=== PATIENT | female | born 1970 ===

== ENCOUNTER 2020-07-22 09:53 | Outpatient (REF) | payer OTHER, SELFPAY ==
[2020-07-22 10:23] LABS: COVID-19 Test Negative (Negative)
== END 2020-07-22 09:54 | disposition home or self-care (01) ==
LOC: HO.LAB 09:53
PROVIDERS: Visit Provider Internal Medicine
DX: Z20.828 Contact with and (suspected) exposure to other viral communicable diseases (principal)
CPT/HCPCS: 87635

== ENCOUNTER 2020-07-26 16:04 | Outpatient (REF) | payer OTHER, SELFPAY ==
--- NOTE | 2020-07-26 16:13 | XR_ITS ---
EXAMINATION: XR HIP, RIGHT CLINICAL INFORMATION: Right hip pain COMPARISON: CT abdomen pelvis 08/23/2011 TECHNIQUE: Two views of the right hip. FINDINGS: Bones and soft tissues are normal. No fracture. Alignment is anatomic. Hip joint space is maintained. XR/XR hip RT min 2V IMPRESSION: Normal right hip.
== END 2020-07-26 16:05 | disposition home or self-care (01) ==
LOC: HO.XRAY 16:04
PROVIDERS: PCP Internal Medicine; Visit Provider Internal Medicine
DX: M25.551 Pain in right hip (principal)
CPT/HCPCS: 73502

== ENCOUNTER 2020-08-15 11:21 | Outpatient (REF) | payer OTHER, SELFPAY ==
[2020-08-15 13:16] LABS: COVID-19 Test Negative (Negative)
== END 2020-08-15 11:22 | disposition home or self-care (01) ==
LOC: HO.EMPCOV 11:21
PROVIDERS: PCP Internal Medicine; Visit Provider Internal Medicine
DX: Z20.828 Contact with and (suspected) exposure to other viral communicable diseases (principal)
CPT/HCPCS: 87635; C9803

== ENCOUNTER 2020-08-17 16:00 | Outpatient (RCR) | payer OTHER, SELFPAY ==
--- NOTE | 2020-08-12 09:07 | MHC.PT.EP ---
[facility] [place] Office [place] Office [place] Office [address] Cheryl Freeman [address] [phone] F: [phone] F: [phone] F: [phone] F: [phone] Physical Therapy Plan of Care Date of Evaluation: 08/12/20 Date of Surgery: N/A Diagnosis: low back pain Assessment: pt presents to physical therapy with pain, decreased range of motion, decreased strength, impaired functional mobility, impaired postural awareness, and gait deviations. pt is a good candidate for skilled PT due to age, potential remediation of impairments, typical disease/condition progression and prognosis, comorbidities, and motivation. pt would benefit from tailored strengthening and stretching exercise program, functional training, gait training, postural re-training, neuromuscular re-education, modalities as needed for pain, equipment safety demonstration. Frequency and Duration: The patient will be seen 2x/wk for 4 wks Short Term Goals: pt will be I w/ HEP to promote self-management of condition. pt will demo symmetrical SI joint alignment to facilitate neutral lumbopelvic posture. Behavioral Therapist Goals: pt will report statistically significant improvement in self-reported outcome measure, Autumn, to facilitate return to PLOF. pt will report <2/10 anterior hip pain w/ lower body dressing to facilitate return to PLOF. Treatment Plan: Modalities to reduce pain, spasms and effusion. Manual therapy to restore motion and function. Therapeutic exercise to improve strength and flexibility. Neuromuscular re-education for posture and balance. Therapeutic activities to return to functional activities of daily living. Please sign and return to therapist. Thank you for your referral.
--- NOTE | 2020-09-19 10:09 | MHC.PT.DC ---
[facility] [place] Office [place] Office [place] Office [address] Cheryl Freeman 140 [facility] [phone] F: [phone] F: [phone] F: [phone] F: [phone] Physical Therapy Discharge Report Diagnosis: low back pain Date of Surgery: N/A Date of Evaluation: 08/12/20 Date of Discharge: 09/19/20 Treatments to Date: 2 Cancellations to Date: 6 No Shows to Date: 1 Discharge Status: Patient Elected to Stop Recommend MD Follow-up Discharge Summary: The patient called our office to inform us she had tested positive for COVID-19. She had cancelled all of her remaining appointments with a note that she would schedule a follow-up appointment when she was cleared and felt well enough to do so. It has been over a month since we have heard from her and at this point she would need a new script for a new evaluation to assess her current pain and impairments. She is discharged from this physical therapy plan of care. Electronically signed by: Kaleigh Marcus PT, DPT Please sign and return to therapist. Thank you for your referral.
== END 2020-09-19 10:09 | disposition other institution (70) ==
LOC: HO.PT 16:00
PROVIDERS: PCP Internal Medicine; Visit Provider Internal Medicine
DX: M54.5 Low back pain (principal)
CPT/HCPCS: 97110; 97140; 97161

== ENCOUNTER 2020-08-29 11:00 | Outpatient (REF) | payer OTHER, SELFPAY ==
[2020-08-30 07:08] LABS: COVID-19 Test Positive (Negative); IDNOW Serial# 55D5AD1C
== END 2020-08-29 11:01 | disposition home or self-care (01) ==
LOC: HO.EMPCOV 11:00
PROVIDERS: Visit Provider Internal Medicine
DX: Z20.828 Contact with and (suspected) exposure to other viral communicable diseases (principal)
CPT/HCPCS: 87635; C9803

== ENCOUNTER 2020-09-02 09:45 | Emergency (ER) | payer OTHER, SELFPAY ==
--- NOTE | 2020-09-02 09:50 | ED.SOB ---
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 she is Covid positive, her PMD started her on prednisone, zpack and albuterol but patient is still coughing. MD elicited complaint: shortness of breath, cough and anxiety Onset (ago): day(s) Context: recent illness Timing: constant Severity: mild Related Data Allergies Allergy/AdvReac Type Severity Reaction Status Date / Time orange Allergy Unknown RASH Unverified 06/16/20 15:55 oranges Allergy Unknown rash Uncoded 05/22/17 00:00 penicillin Allergy Unknown rash Uncoded 05/22/17 00:00 Review of Systems Constitutional: Constitutional: Reports no additional constitutional complaints Eyes: Eyes: Reports no additional eye complaints ENT: Denies dizziness Cardiovascular: Cardiovascular: Reports no additional cardiovascular complaints Respiratory: Respiratory: Reports as per HPI Gastrointestinal: Gastrointestinal: Reports no additional gastrointestinal complaints Genitourinary: Genitourinary: Reports no additional female genitourinary complaints Musculoskeletal: Musculoskeletal: Reports no additional musculoskeletal complaints Integumentary/Breasts: Skin/Breast: Denies rash Neurologic: Reports system reviewed and no additional complaints, except as documented, Denies dizziness and Denies Sensory deficit (Neuro) Psychiatric: Psychiatric: Denies anxiety [facility] Past Medical History Surgical History (Updated 09/02/20 @ 10:05 by Jorge Mas) H/O: hysterectomy Social History Social History Advance Directives: No Advance Directives Information Provided: No Physical Exam Vital Signs: Vital Signs: Last Vital Signs Temp 100.1 F 09/02/20 10:01 Pulse 116 H 09/02/20 10:01 Resp 18 09/02/20 10:01 BP 131/93 H 09/02/20 10:01 Pulse Ox 98 09/02/20 10:01 Body Mass Index 27.1 Const: Other: continual coughing General: healthy appearing Nutritional Appearance: average body habitus Orientation/consciousness: oriented to person and patient oriented x3 Limitations: no limitations HENMT: Head: Yes normal to inspection Ears: external ears normal General nose exam: Normal external nose present Mouth: Normal oral and palatal mucosa present and oropharynx normal Throat: Yes posterior oropharynx normal Eyes: General: appearance normal, both eyes and all related structures Neck: Other: supple Neck: Yes normal visual inspection Chest: Chest palpation & inspection: normal inspection of the chest Resp: Auscultation: clear to auscultation bilaterally Cardio: Jugular venous distension: no JVD Rate: regular rate Rhythm: regular rhythm Heart sounds: S1 normal heart sound present and S2 normal heart sound present GI: Inspection: Yes normal to inspection Palpation (GI): Soft to palpation, nontender and No hepatosplenomegaly present Auscultation: normal bowel sounds : General: Yes no CVA tenderness Back/Spine/Pelvis: Back: no CVA tenderness Skin: General skin exam: no rashes or lesions noted Neuro: General: oriented to person and patient oriented x3 Cranial nerves: Yes CN's II-XII intact bilaterally Motor exam (neuro): 5/5 motor strength present throughout Sensory Exam: No Sensory deficit (Neuro) Extrem: General: Yes normal to inspection Psych: Appearance: grossly normal Course Course Course Narrative: pulse ox is normal, will obtain a CXR Reevaluation(s) Reevaluation #1: normal CXR MDM - SOB/Dyspnea MDM Narrative Medical decision making narrative: no hypoxia, normal xray will dc home Discharge Plan Discharge Clinical Impression: COVID-19 Patient Disposition: Home, Self-Care Instructions: COVID-19 (Coronavirus Disease 2019) (ED) Referrals: Physician,Unknown [Primary Care Provider] - 2 days
[2020-09-02 10:01] VITALS: BP 131/93; PULSE 116; RESP 18; TEMP 37.8; O2SAT 98; BMI 27.1
--- NOTE | 2020-09-02 10:06 | XR_ITS ---
EXAMINATION: XR CHEST CLINICAL INFORMATION: COVID+; continued coughing COMPARISON: Chest radiographs 07/31/2018, 01/24/2016 TECHNIQUE: Portable upright AP view of the chest was obtained. FINDINGS: The lungs are clear. There is no airspace consolidation or groundglass opacity. The costophrenic sulci are well-defined. The heart is normal in size. The hilar and mediastinal contours and bony structures are unremarkable. XR/XR chest 1V IMPRESSION: Unremarkable examination.
[2020-09-02 11:20] VITALS: BP 147/78; PULSE 88; RESP 20; TEMP 38.2
== END 2020-09-02 14:13 | disposition home or self-care (01) ==
PROVIDERS: Emergency Provider Emergency Medicine
DX: U07.1 COVID-19 (principal); R05 Cough
CPT/HCPCS: 71045; 99283

== ENCOUNTER → 2020-10-04 10:51 | Outpatient (BNVA) | payer OTHER, SELFPAY | PROVIDERS: Visit Provider Internal Medicine | DX: Z13.89 Encounter for screening for other disorder (principal) | CPT/HCPCS: 90715; 99203 ==

== ENCOUNTER 2020-10-13 10:00 | Outpatient (REF) | payer OTHER, SELFPAY ==
[2020-10-13 10:33] LABS: COVID-19 Test Negative (Negative)
== END 2020-10-13 10:01 | disposition home or self-care (01) ==
LOC: HO.EMPCOV 10:00
PROVIDERS: PCP Internal Medicine; Visit Provider Internal Medicine
DX: Z20.822 Contact with and (suspected) exposure to COVID-19 (principal)
CPT/HCPCS: 36415; 87635; C9803

== ENCOUNTER 2020-10-18 07:02 | Outpatient (REF) | payer OTHER, SELFPAY ==
[2020-10-18 07:49] LABS: MANUAL DIFF FLAG NO
[2020-10-18 08:01] LABS: Basophils Percent Auto 0.9 % (0-2); Eosinophils Absolute Auto 0.2 X10*3/uL (0.0-0.4); Eosinophils Percent Auto 5.2 % (0-4); Hematocrit 36.4 % (37-47); Hemoglobin 11.5 g/dl (12.0-16.0); Imm Gran Abs Auto 0.01 X10*3/uL (0.00-0.03); Imm Gran Pct Auto 0.2 % (0.0-0.4); Lymphocytes Absolute Auto 1.8 X10*3/uL (1.2-4.9); Lymphocytes Percent Auto 38.9 % (20-40); Mean Corpuscular HGB Conc 31.6 g/dl (31.0-35.0); Mean Corpuscular Hemoglobin 28.8 pg (27.0-33.0); Mean Platelet Volume 10.9 fL (9.4-12.3); Monocytes Absolute Auto 0.4 X10*3/uL (0.1-1.2); Monocytes Percent Auto 9.2 % (2-11); Neutrophils Absolute Auto 2.1 X10*3/uL (2.0-8.3); Neutrophils Percent Auto 45.6 % (45-73); Platelet Count 358 X10*3/uL (160-400); White Blood Count 4.7 X10*3/uL (4.8-10.8)
[2020-10-18 08:34] LABS: Alanine Aminotransferase 9 U/L (0-31); Albumin Level 4.3 g/dL (3.5-5.0); Alkaline Phosphatase 67 U/L (39-117); Anion Gap 11 (12-20); Aspartate Amino Transferase 14 U/L (5-31); Bilirubin Total 0.4 mg/dL (0.0-1.0); Blood Urea Nitrogen 10 mg/dL (9-16); Calcium 8.8 mg/dL (8.4-10.2); Carbon Dioxide 26 mmol/L (22-29); Chloride 105 mmol/L (96-108); Cholesterol 175 mg/dL; Estimated Glomerular Filt Rate > 60; Glucose Random 83 mg/dL (60-115); HDL Cholesterol 62 mg/dL; LDL Cholesterol Calculated 92 mg/dl; Potassium 4.3 mmol/l (3.3-5.1); Rheumatoid Factor < 15.0 IU/mL (<15.0); Sodium 138 mmol/L (135-145); Triglycerides 105 mg/dL
[2020-10-18 08:56] LABS: Thyroid Stimulating Hormone 2.35 uIU/mL (0.32-4.0)
[2020-10-20 11:53] LABS: Anti Nuclear Antibody Screen NEGATIVE (NEGATIVE)
== END 2020-10-18 07:03 | disposition home or self-care (01) ==
LOC: HO.LAB 07:02
PROVIDERS: Visit Provider Internal Medicine
DX: U07.1 COVID-19 (principal)
CPT/HCPCS: 36415; 80053; 80061; 84443; 85025; 86038; 86039; 86431

== ENCOUNTER 2020-11-09 15:19 | Outpatient (REF) | payer OTHER, SELFPAY ==
--- NOTE | ~2020-11-09 | MM_ITS ---
EXAMINATION: MM SCREENING DIGITAL BREAST TOMOSYNTHESIS, BILATERAL CLINICAL INFORMATION: Screening. Asymptomatic. The lifetime risk of breast cancer based on the Tyrer-Cuzick Model is 21.5%. Additional annual screening with breast MRI may be of benefit in women with a Score of 20% or greater. COMPARISON: Mammography: November 04, 2019 and studies dating back to July 02, 2013 TECHNIQUE: Digital breast tomosynthesis is performed in both the craniocaudal and mediolateral oblique views along with computer-aided detection (CAD). Synthesized 2D images are generated from the tomosynthesis. FINDINGS: The breasts are heterogeneously dense, which may obscure small masses (ACR BI-RADS breast composition Category c). There are no significant masses, abnormal calcifications, or other abnormalities. MM/MM tomosynthesis screening BI IMPRESSION: There are no significant changes from prior study. ASSESSMENT: BI-RADS 1: Negative RECOMMENDATION: Routine annual mammography screening. This patient's information was entered into a reminder system with a target due date for their next mammogram.
== END 2020-11-09 15:20 | disposition home or self-care (01) ==
LOC: HO.MAMMO 15:19
PROVIDERS: Visit Provider Internal Medicine
DX: Z12.31 Encounter for screening mammogram for malignant neoplasm of breast (principal)
CPT/HCPCS: 77063; 77067

== ENCOUNTER 2020-12-08 13:27 | Outpatient (REF) | payer OTHER, SELFPAY ==
--- NOTE | ~2020-12-08 | MR_ITS ---
EXAMINATION: MR BRAIN WITHOUT AND WITH CONTRAST CLINICAL INFORMATION: Headaches and dizziness. Family history of malignant neoplasm. COMPARISON: CT scan of the head 01/05/2014. TECHNIQUE: Multiplanar, multisequence MRI of the brain was obtained before and after the intravenous administration of 7 mL Gadavist. FINDINGS: No diffusion abnormalities are identified to suggest an acute or subacute infarct. No mass effect or midline shift is seen. The ventricles are normal in size. There are multiple foci of increased T2 and FLAIR signal in the supratentorial white matter. These are in a nonspecific distribution, and may be consistent with sequelae of vasculitis, migraine or mild/early microvascular ischemic disease. They may be consistent with demyelination in the correct clinical setting. No extra-axial fluid collections are seen. The brainstem and cerebellum are normal. On postcontrast imaging, there is no abnormal parenchymal or leptomeningeal enhancement. There is no evidence of acute hemorrhage. There is a small focus of low gradient signal adjacent to the calvarium in the right frontal region, which may be consistent with a small exostosis. The craniovertebral junction, marrow signal, and midline structures are normal. The major intracranial flow-voids at the level of the [place] of [place] are preserved. The dural venous sinus flow-voids are maintained. There is mild fluid signal in the right greater than left mastoid air cells. The paranasal sinuses are well-aerated. MR/MR head/brain wo/w con IMPRESSION: 1. There are no acute bleeds or infarcts. There are no masses or areas of abnormal enhancement. 2. There are scattered areas of increased T2 and FLAIR signal in the deep white matter as described above.
== END 2020-12-08 13:28 | disposition home or self-care (01) ==
LOC: HO.MRI 13:27
PROVIDERS: Visit Provider Internal Medicine
DX: G44.209 Tension-type headache, unspecified, not intractable (principal); Z80.9 Family history of malignant neoplasm, unspecified
CPT/HCPCS: 70553; A9585

== ENCOUNTER 2020-12-14 09:41 | Outpatient (REF) | payer OTHER, SELFPAY | END 2020-12-14 09:42 | disposition home or self-care (01) | LOC: HO.LAB 09:41 | PROVIDERS: Visit Provider Internal Medicine | DX: Z20.822 Contact with and (suspected) exposure to COVID-19 (principal) | CPT/HCPCS: 36415; C9803; U0003; U0005 ==

== ENCOUNTER 2021-01-31 08:57 | Outpatient (REF) | payer OTHER, SELFPAY | END 2021-01-31 08:58 | disposition home or self-care (01) | LOC: HO.EMPCOV 08:57 | PROVIDERS: Visit Provider Internal Medicine | DX: Z20.822 Contact with and (suspected) exposure to COVID-19 (principal) | CPT/HCPCS: C9803; U0003; U0005 ==

== ENCOUNTER 2021-03-13 15:42 | Outpatient (REF) | payer OTHER, SELFPAY | END 2021-03-13 15:43 | disposition home or self-care (01) | LOC: HO.LAB 15:42 | PROVIDERS: PCP Internal Medicine; Visit Provider Otolaryngology | DX: J30.89 Other allergic rhinitis (principal) | CPT/HCPCS: 36415; 82785; 86003 ==

== ENCOUNTER 2021-07-31 10:28 | Outpatient (REF) | payer OTHER, SELFPAY | END 2021-07-31 10:29 | disposition home or self-care (01) | LOC: HO.LAB 10:28 | PROVIDERS: Visit Provider Internal Medicine | DX: Z20.822 Contact with and (suspected) exposure to COVID-19 (principal) | CPT/HCPCS: C9803; U0003; U0005 ==

== ENCOUNTER 2021-09-26 10:52 | Emergency (ER) | payer OTHER, SELFPAY ==
--- NOTE | ~2021-09-26 | XR_ITS ---
EXAMINATION: XR CHEST CLINICAL INFORMATION: Covid plus cough. COMPARISON: Chest 09/02/2020. TECHNIQUE: PA and lateral views of the chest are obtained. FINDINGS: No significant abnormality is noted involving the heart, lungs, mediastinum, bony thorax or soft tissues. XR/XR chest 2V IMPRESSION: Unremarkable examination.
[2021-09-26 11:34] VITALS: BP 138/79; PULSE 120; RESP 18; TEMP 38.2; O2SAT 99; BMI 25.2
--- NOTE | 2021-09-26 15:38 | ED_ITS ---
HPI - URI/Sore Throat General Chief Complaint: Upper Respiratory Symptoms Stated Complaint: Diff Breathing COVID + Time Seen by Provider: 09/26/21 14:28 Source: patient Mode of arrival: ambulatory Limitations: no limitations History of Present Illness HPI Narrative: 51-year-old female presents with 3 days of cough, chills, fever, sore throat. Patient feels short of breath only with the cough. She has a remote history of asthma. No chest pain. Patient is able to eat and drink, no nausea or vomiting. Related Data Previous Rx's Medication Instructions Recorded dextromethorphan 5 mg-guaifenesin 20 ml PO Q4-6H PRN #237 ml 09/02/20 50 mg/5 mL oral liquid (Robitussin Cough-Chest Congestion DM) albuterol sulfate 90 mcg/actuation 2 puff INHALATION Q4-6H PRN #8.5 g 09/26/21 aerosol inhaler dexamethasone 6 mg tablet 6 mg PO DAILY 3 Days #3 tab 09/26/21 Allergies Allergy/AdvReac Type Severity Reaction Status Date / Time orange Allergy Unknown RASH Unverified 06/16/20 15:55 oranges Allergy Unknown rash Uncoded 05/22/17 00:00 penicillin Allergy Unknown rash Uncoded 05/22/17 00:00 Review of Systems Constitutional: Constitutional: Reports body ache(s), Reports chills, Reports fatigue, Reports fever(s), Reports headache(s), Reports malaise and Reports weakness Eyes: Eyes: Denies diplopia ENT: Denies vertigo, Denies dizziness, Denies otalgia, Reports headache(s), Denies mouth pain, Denies post nasal drip, Denies sinus pain, Denies sinus pressure, Reports sore throat and Denies throat swelling Cardiovascular: Cardiovascular: Denies chest pain, Denies syncope, Denies leg edema, Denies lightheadedness, Denies Loss of Consciousness, Denies palpitations and Denies dyspnea Respiratory: Respiratory: Reports chest congestion, Reports cough and Denies dyspnea Comments: Shortness of breath when coughing Gastrointestinal: Gastrointestinal: Denies abdominal pain, Denies hematochezia, Denies constipation, Denies diarrhea and Denies vomiting Musculoskeletal: Musculoskeletal: Reports no additional musculoskeletal complaints Neurologic: Denies confusion, Denies vertigo, Denies dizziness, Denies syncope, Reports headache(s) and Reports weakness Psychiatric: Psychiatric: Denies anxiety, Denies confusion and Denies depression Endocrine: Endocrine: Reports fatigue and Denies palpitations Allergic/Immunologic: Allergic/Immunologic: Denies throat swelling PMFSH Past Medical History Surgical History (Updated 09/02/20 @ 10:05 by Jorge Mas) H/O: hysterectomy Social History Social History Advance Directives: No Advance Directives Information Provided: No Patient : No Physical Exam Vital Signs: Vital Signs: Last Vital Signs Temp 100.8 F H 09/26/21 11:34 Pulse 120 H 09/26/21 11:34 Resp 18 09/26/21 11:34 BP 138/79 09/26/21 11:34 Pulse Ox 99 09/26/21 11:34 BMI result Body Mass Index 25.2 Const: General: alert, awake and ill appearing acutely; No confusion Nutritional Appearance: well nourished Orientation/consciousness: patient oriented x3 and No confusion Limitations: no limitations HENMT: Head: Yes normal to inspection, Yes normocephalic and Yes atraumatic Ears: hearing grossly normal bilaterally, external ears normal, TM's normal bilaterally and EAC's normal General nose exam: Normal external nose present Face and sinus: Yes normal facial exam and Yes sinuses nontender Mouth: Normal oral and palatal mucosa present Throat: Yes tonsils normal, Yes uvula midline and Yes posterior oropharynx abnormal (Erythematous, no exudate) Eyes: Conjunctivae: conjunctivae normal Pupils: Equal, round and reactive pupils present EOM: EOMs intact bilaterally Neck: Neck: Yes full ROM, Yes no lymphadenopathy and Yes supple Resp: Effort & Inspection: normal respiratory effort and able to speak in complete sentences Auscultation: clear to auscultation bilaterally, no crackl es, no rales, no rhonchi, no wheezes and diminished lung sounds (mildly) Cardio: Rate: regular rate Rhythm: regular rhythm Heart sounds: S1 normal heart sound present and S2 normal heart sound present GI: Inspection: Yes normal to inspection Palpation (GI): Soft to palpation, nontender, no guarding and not rigid Percussion: Yes normal to percussion Auscultation: normal bowel sounds Skin: General skin exam: no rashes or lesions noted Neuro: General: patient oriented x3 and No confusion Cranial nerves: Yes Equal, round and reactive pupils present Extrem: General: Yes normal to inspection and Yes full ROM Psych: Appearance: grossly normal Affect: normal affect Attitude: cooperative Thought process: Normal thought process present Course Course Course Narrative: 51-year-old female is COVID positive presents for shortness of breath with cough, remote history of asthma. Chest x-ray is negative. Patient denies shortness of breath wall sitting, denies chest pain. Chest x-ray is negative. Lungs or Mildly diminished. Provided albuterol inhaler, gave short course of dexamethasone, saltwater gargles, counseled patient to get a pulse oximeter and follow her oxygen saturation and if it drops below 89%, to return to be seen. Tylenol, push fluids, rest. Out of work for 10 days. All patient's questions were answered Discharge Plan Discharge Clinical Impression: COVID-19 Patient Disposition: Home, Self-Care Instructions: COVID-19 (Coronavirus Disease 2019) (ED) Additional Instructions: Today you tested positive for COVID, your chest x-ray was negative. Please use your pulse oximeter at home and monitor oxygen saturation. If her oxygen saturation goes below 89%, if you feel short of breath, or have chest pain, please return to the emergency room. Please take your albuterol inhaler, 2 puffs every 4-6 hours and take the dexamethasone. Use salt water gargles for your throat, 1 tsp of salt in a couple of warm water, gargle, please use Tylenol and push fluids, please drink 3 L of fluid a day. Please return to emergency room for any new or concerning symptoms Prescriptions: New albuterol sulfate 90 mcg/actuation HFA aerosol inhaler 2 puff inhalation Q4-6H PRN (Reason: shortness of breath or wheezing) Qty: 8.5 RF: 0 dexamethasone 6 mg tablet 6 mg PO DAILY 3 Days Qty: 3 RF: 0 No Action Robitussin Cough-Chest Earl DM 5-50 mg/5 mL liquid 20 ml PO Q4-6H PRN (Reason: cough) Qty: 237 RF: 0 Stand Alone Forms: Work/School Release
[2021-09-26 16:19] VITALS: BP 143/77; PULSE 115; RESP 16; TEMP 36.5; O2SAT 99
--- NOTE | 2021-09-26 17:57 | PC.NURSE ---
pt was not seen by this nurse, pt was discharged by provider
== END 2021-09-26 17:57 | disposition home or self-care (01) ==
PROVIDERS: Emergency Provider Emergency Medicine; PCP Internal Medicine
DX: U07.1 COVID-19 (principal); J45.909 Unspecified asthma, uncomplicated
CPT/HCPCS: 71046; 99283

== ENCOUNTER 2021-11-03 06:57 | Outpatient (REF) | payer OTHER, SELFPAY ==
[2021-11-03 07:14] LABS: MANUAL DIFF FLAG NO
[2021-11-03 07:34] LABS: Basophils Percent Auto 0.7 % (0-2); Eosinophils Absolute Auto 0.2 X10*3/uL (0.0-0.4); Eosinophils Percent Auto 4.1 % (0-4); Hematocrit 37.5 % (37.0-47.0); Imm Gran Abs Auto 0.01 X10*3/uL (0.00-0.03); Imm Gran Pct Auto 0.2 % (0.0-0.4); Lymphocytes Absolute Auto 1.6 X10*3/uL (1.2-4.9); Lymphocytes Percent Auto 38.3 % (20-40); Mean Corpuscular Hemoglobin 28.6 pg (27.0-33.0); Mean Corpuscular Volume 89.3 fL (80.0-98.0); Mean Platelet Volume 10.6 fL (9.4-12.3); Monocytes Absolute Auto 0.5 X10*3/uL (0.1-1.2); Monocytes Percent Auto 11.2 % (2-11); Neutrophils Absolute Auto 1.9 x10*3/uL (2.0-8.3); Neutrophils Percent Auto 45.5 % (45-73); Platelet Count 329 X10*3/uL (160-400); White Blood Count 4.2 X10*3/uL (4.8-10.8)
[2021-11-03 08:03] LABS: Alanine Aminotransferase 11 U/L (0-31); Albumin Level 4.4 g/dL (3.5-5.0); Alkaline Phosphatase 63 U/L (39-117); Anion Gap 10 (12-20); Aspartate Amino Transferase 15 U/L (5-31); Bilirubin Total 0.7 mg/dL (0.0-1.0); Blood Urea Nitrogen 10 mg/dL (9-16); Calcium 9.6 mg/dL (8.4-10.2); Carbon Dioxide 28 mmol/L (22-29); Chloride 108 mmol/L (96-108); Cholesterol 191 mg/dL; Estimated Glomerular Filt Rate > 60; Glucose Random 96 mg/dL (60-115); HDL Cholesterol 64 mg/dL; LDL Cholesterol Calculated 113 mg/dl; Potassium 3.9 mmol/L (3.3-5.1); Sodium 142 mmol/L (135-145); Total Protein 7.4 g/dL (6.5-8.0); Triglycerides 73 mg/dL
[2021-11-03 08:13] LABS: Thyroid Stimulating Hormone 2.01 uIU/mL (0.32-4.0)
[2021-11-03 08:14] LABS: Erythrocyte Sedimentation Rate 7 MM/HR (0-20)
== END 2021-11-03 06:58 | disposition home or self-care (01) ==
LOC: HO.LAB 06:57
PROVIDERS: PCP Internal Medicine; Visit Provider Internal Medicine
DX: Z00.00 Encounter for general adult medical examination without abnormal findings (principal); H81.12 Benign paroxysmal vertigo, left ear; M06.9 Rheumatoid arthritis, unspecified; R21 Rash and other nonspecific skin eruption; R53.83 Other fatigue
CPT/HCPCS: 36415; 80053; 80061; 84443; 85025; 85652

== ENCOUNTER → 2021-11-03 07:57 | Outpatient (BNVA) | payer OTHER, SELFPAY | PROVIDERS: PCP Internal Medicine | DX: Z13.89 Encounter for screening for other disorder (principal) | CPT/HCPCS: 73130; 99203 ==

== ENCOUNTER → 2021-11-09 08:07 | Outpatient (BNVA) | payer OTHER, SELFPAY | PROVIDERS: PCP Internal Medicine; Visit Provider Internal Medicine | DX: Z13.89 Encounter for screening for other disorder (principal) | CPT/HCPCS: 99213 ==

== ENCOUNTER 2021-11-14 12:03 | Outpatient (REF) | payer OTHER, SELFPAY ==
--- NOTE | ~2021-11-14 | XR_ITS ---
EXAMINATION: RIGHT HAND AND RIGHT WRIST. CLINICAL INFORMATION: Pain right wrist. COMPARISON: None TECHNIQUE: 3 views right wrist and 3 views right hand. FINDINGS: Right hand: There is no visible acute fracture, dislocation or subluxation. The PIP, DIP and MCP joint space is maintained normal. The soft tissues are normal. Right wrist: There is no visible acute fracture, dislocation or subluxation seen. The soft tissues are normal. XR/XR hand RT min 3V IMPRESSION: Unremarkable right hand and right wrist exam.
--- NOTE | ~2021-11-14 | XR_ITS ---
EXAMINATION: RIGHT HAND AND RIGHT WRIST. CLINICAL INFORMATION: Pain right wrist. COMPARISON: None TECHNIQUE: 3 views right wrist and 3 views right hand. FINDINGS: Right hand: There is no visible acute fracture, dislocation or subluxation. The PIP, DIP and MCP joint space is maintained normal. The soft tissues are normal. Right wrist: There is no visible acute fracture, dislocation or subluxation seen. The soft tissues are normal. XR/XR wrist RT min 3V IMPRESSION: Unremarkable right hand and right wrist exam.
== END 2021-11-14 12:04 | disposition home or self-care (01) ==
LOC: HO.HOSX 12:03
PROVIDERS: PCP Internal Medicine; Visit Provider Orthopaedic Surgery
DX: S63.641A Sprain of metacarpophalangeal joint of right thumb, initial encounter (principal); M25.531 Pain in right wrist; R20.0 Anesthesia of skin; R20.2 Paresthesia of skin; W01.0XXA Fall on same level from slipping, tripping and stumbling without subsequent striking against object, initial encounter; Y93.9 Activity, unspecified; Y92.9 Unspecified place or not applicable; Y99.9 Unspecified external cause status
CPT/HCPCS: 73110; 73130; 99202

== ENCOUNTER 2021-11-24 08:51 | Outpatient (REF) | payer OTHER, SELFPAY ==
--- NOTE | ~2021-11-24 | MM_ITS ---
EXAMINATION: MM SCREENING DIGITAL BREAST TOMOSYNTHESIS, BILATERAL CLINICAL INFORMATION: Screening. Asymptomatic. The lifetime risk of breast cancer based on the Tyrer-Cuzick Model is 21%. COMPARISON: Mammography: 11/09/2020, 11/04/2019, 10/29/2018, 10/25/2017 TECHNIQUE: Digital breast tomosynthesis is performed in both the craniocaudal and mediolateral oblique views along with computer-aided detection (CAD). Synthesized 2D images are generated from the tomosynthesis. FINDINGS: The breasts are heterogeneously dense, which may obscure small masses (ACR BI-RADS breast composition Category c). Breast tissue composition borders on average fibroglandular. There are no significant masses, abnormal calcifications, or other abnormalities. Parenchymal pattern is similar to prior studies. There is no developing density or architectural abnormality. The axilla and skin contours are unremarkable. No significant changes. MM/MM tomosynthesis screening BI IMPRESSION: No mammographic evidence of malignancy. ASSESSMENT: BI-RADS 1: Negative RECOMMENDATION: 1. Routine annual mammography screening. 2. The lifetime risk of breast cancer based on the Tyrer-Cuzick Model is 21%. Additional annual adjunct screening with breast MRI may be of benefit in women with a risk score of 20% or greater. This patient's information was entered into a reminder system with a target due date for their next mammogram.
== END 2021-11-24 08:52 | disposition home or self-care (01) ==
LOC: HO.MAMMO 08:51
PROVIDERS: PCP Internal Medicine; Visit Provider Internal Medicine
DX: Z12.31 Encounter for screening mammogram for malignant neoplasm of breast (principal)
CPT/HCPCS: 77063; 77067

== ENCOUNTER → 2021-12-19 13:29 | Outpatient (BNVA) | payer OTHER, SELFPAY | PROVIDERS: PCP Internal Medicine; Visit Provider Orthopaedic Surgery | DX: S63.641D Sprain of metacarpophalangeal joint of right thumb, subsequent encounter (principal); R20.0 Anesthesia of skin; R20.2 Paresthesia of skin | CPT/HCPCS: 99212 ==

== ENCOUNTER → 2022-01-04 10:33 | Outpatient (BNVA) | payer OTHER, SELFPAY | PROVIDERS: PCP Internal Medicine; Visit Provider Internal Medicine | DX: Z13.89 Encounter for screening for other disorder (principal) | CPT/HCPCS: 99213 ==

== ENCOUNTER 2022-01-05 10:28 | Outpatient (REF) | payer OTHER, SELFPAY ==
--- NOTE | 2022-01-05 10:34 | EMG_ITS ---
This is a 51-year-old woman with history of right hand numbness. She had a recent fall in which she stretched her tendons in the right hand and was in a cast for about 6 weeks. Neurological examination is normal. IMPRESSION: Nerve conduction EMG study: Normal electrodiagnostic study of the right upper extremity with no evidence of carpal tunnel syndrome or nerve entrapment. Normal EMG of the right C7-T1 innervated muscles. MD DOROTHY Mims/JUAN / [id number]
== END 2022-01-05 10:29 | disposition home or self-care (01) ==
LOC: HO.NEURO 10:28
PROVIDERS: PCP Internal Medicine; Visit Provider Orthopaedic Surgery
DX: R20.0 Anesthesia of skin (principal); R20.2 Paresthesia of skin
CPT/HCPCS: 95885; 95910

== ENCOUNTER 2022-01-15 08:31 | Outpatient (REF) | payer OTHER, SELFPAY ==
--- NOTE | ~2022-01-15 | MR_ITS ---
EXAMINATION: MRI RIGHT HAND WITHOUT CONTRAST CLINICAL INFORMATION: Right thumb MCP joint sprain/pain. COMPARISON: X-ray 11/14/2021 TECHNIQUE: MRI in a high-field magnet without contrast. FINDINGS: First MCP joint: Minimal arthritis, with subtle foci of mild cartilage heterogeneity/irregularity. Faint foci subchondral edema. No fracture. No significant joint effusion. Mild increased signal in the ulna collateral ligament, suggesting sprain injury. Radial collateral ligament is intact. First digit flexor and extensor tendons intact. Additional findings: There are degenerative/arthritic changes in the wrist, including the trapezium, capitate, triquetrum. No fracture. Remainder the visualized tendons appear intact. Median nerve signal is within normal limits. MR/MR hand RT wo con IMPRESSION: First MCP joint: Minimal first MCP arthritis. Findings suggest ulnar collateral ligament sprain. Degenerative/arthritic changes as detailed above.
== END 2022-01-15 08:32 | disposition home or self-care (01) ==
LOC: HO.MRI 08:31
PROVIDERS: Visit Provider Physician Assistant Medical
DX: M79.644 Pain in right finger(s) (principal); S63.601D Unspecified sprain of right thumb, subsequent encounter
CPT/HCPCS: 73218

== ENCOUNTER → 2022-01-18 09:20 | Outpatient (BNVA) | payer OTHER, SELFPAY | PROVIDERS: PCP Internal Medicine; Visit Provider Physician Assistant Medical | DX: Z13.89 Encounter for screening for other disorder (principal) | CPT/HCPCS: 99213 ==

== ENCOUNTER → 2022-01-30 14:24 | Outpatient (BNVA) | payer OTHER, SELFPAY | PROVIDERS: PCP Internal Medicine; Visit Provider Physician Assistant | DX: S63.649D Sprain of metacarpophalangeal joint of unspecified thumb, subsequent encounter (principal); S63.6 Other and unspecified sprain of finger(s); R20.0 Anesthesia of skin; R20.2 Paresthesia of skin | CPT/HCPCS: 99212 ==

== ENCOUNTER → 2022-04-17 09:32 | Outpatient (BNVA) | payer OTHER, SELFPAY | PROVIDERS: PCP Internal Medicine; Visit Provider Physician Assistant | DX: S63.641D Sprain of metacarpophalangeal joint of right thumb, subsequent encounter (principal); R20.0 Anesthesia of skin; R20.2 Paresthesia of skin | CPT/HCPCS: 99212 ==

== ENCOUNTER → 2022-04-19 13:08 | Outpatient (BNVA) | payer OTHER, SELFPAY | PROVIDERS: PCP Internal Medicine; Visit Provider Physician Assistant Medical | DX: Z13.89 Encounter for screening for other disorder (principal) | CPT/HCPCS: 99213 ==

== ENCOUNTER 2022-04-24 09:58 | Outpatient (REF) | payer OTHER, SELFPAY ==
[2022-04-24 11:25] LABS: MANUAL DIFF FLAG NO
[2022-04-24 11:31] LABS: Basophils Percent Auto 0.5 % (0-2); Eosinophils Absolute Auto 0.2 X10*3/uL (0.0-0.4); Eosinophils Percent Auto 2.9 % (0-4); Hematocrit 38.9 % (37.0-47.0); Hemoglobin 12.9 g/dl (12.0-16.0); Imm Gran Abs Auto 0.01 X10*3/uL (0.00-0.03); Imm Gran Pct Auto 0.2 % (0.0-0.4); Lymphocytes Absolute Auto 1.7 X10*3/uL (1.2-4.9); Lymphocytes Percent Auto 30.1 % (20-40); Mean Corpuscular HGB Conc 33.2 g/dl (31.0-35.0); Mean Corpuscular Hemoglobin 29.6 pg (27.0-33.0); Mean Corpuscular Volume 89.2 fL (80.0-98.0); Mean Platelet Volume 10.4 fL (9.4-12.3); Monocytes Absolute Auto 0.5 X10*3/uL (0.1-1.2); Monocytes Percent Auto 9.2 % (2-11); Neutrophils Absolute Auto 3.3 x10*3/uL (2.0-8.3); Neutrophils Percent Auto 57.1 % (45-73); Platelet Count 399 X10*3/uL (160-400); Red Blood Count 4.36 X10*6/uL (4.20-5.50); Red Cell Distribution Width 13.2 % (11.0-16.0); White Blood Count 5.8 X10*3/uL (4.8-10.8)
[2022-04-24 12:06] LABS: Vitamin D 25-OH Total 24.7 ng/mL (>30)
[2022-04-24 12:43] LABS: Folate 15.8 ng/mL (> or = 4.0); Vitamin B12 245 pg/mL (200-900)
== END 2022-04-24 09:59 | disposition home or self-care (01) ==
LOC: HO.LAB 09:58
PROVIDERS: PCP Internal Medicine; Visit Provider Internal Medicine
DX: D64.9 Anemia, unspecified (principal); D72.819 Decreased white blood cell count, unspecified; R53.82 Chronic fatigue, unspecified
CPT/HCPCS: 36415; 82306; 82607; 82746; 85025

== ENCOUNTER 2022-05-07 07:50 | Outpatient (REF) | payer OTHER, SELFPAY ==
--- NOTE | ~2022-05-07 | MR_ITS ---
EXAMINATION: MR BREAST WITHOUT AND WITH CONTRAST, BILATERAL CLINICAL INFORMATION: High-risk screening. Lifetime risk greater than 21%. Sister with breast cancer age 56. Dense breasts. COMPARISON: Breast MRI 11/02/2016. Mammography from 11/24/2021. TECHNIQUE: Imaging was performed with a dedicated breast coil. Prior to the administration of contrast, bilateral axial T1 and bilateral axial T2 weighted sequences were obtained. After the uneventful administration of?7.5 mL of Gadavist, dynamic contrast-enhanced VIBRANT series through the breasts in the axial plane were performed. Subtracted images were performed and reviewed. A delayed sagittal sequence through both breasts was acquired. Additionally, CAD post-processing, including maximum intensity projections, 3-D reconstructions and kinetic analysis, were performed an independent workstation and reviewed by the interpreting radiologist is a portion of this exam. FINDINGS: The breasts are comprised of heterogeneous, dense fibroglandular parenchyma. The tissue undergoes mild background enhancement. LEFT BREAST: A 7 mm somewhat linear nonmass enhancement at 12:00 (image 37/114) 7 cm from the nipple is unchanged compared with prior exam. No suspicious mass, dominant nonmass enhancement or architectural distortion. There is appearance of skin enhancement medially at 10:00, 10 cm from the nipple. Recommend correlation with physical examination. This is likely an artifact of positioning within the coil. Scattered foci of nonmass enhancement. Given differences in technique, no change in comparison with prior MR. RIGHT BREAST: A 5 x 1 mm mass in the right upper inner quadrant (series 100 image 46/114) demonstrates mixed enhancement kinetics and proximity to a vessel. Favor intraparenchymal node. No significant change compared with prior given differences in technique. A reniform 8 mm mass at 10:00 (image 44/114) 6 cm from the nipple is T2 bright and reveals mixed enhancement kinetics. Mass is somewhat ill-defined and slightly more conspicuous than on the previous exam. A 12 mm nonmass enhancement at 10:00 centrally (image 51/114) object 7 cm from the nipple. Stable in comparison with 2017. Apparent medial skin enhancement is also noted on the right at 2:00. Again, artifact from positioning within the coil favored. There is no suspicious internal mammary chain or axillary adenopathy. Limited views of the chest and abdomen are unremarkable. MR/MR breast BI wo/w con IMPRESSION: 1. An 8 mm reniform mass on the right at 10:00 most likely represents an intramammary node. 2. Additional stable nonmass enhancement in both breasts. Bilateral medial skin thickening appears artifactual due to positioning and the coil. ASSESSMENT: LEFT BREAST: BI-RADS 2, benign findings. RIGHT BREAST: BI-RADS 2, benign findings. RECOMMENDATIONS: 1. I recommend a repeat bilateral breast MRI in 12 months to assure stability of right breast findings. 2. I recommend physical examination of the breasts medially to exclude a dermatologic process.
== END 2022-05-07 07:51 | disposition home or self-care (01) ==
LOC: HO.MRI 07:50
PROVIDERS: Visit Provider Internal Medicine
DX: Z12.39 Encounter for other screening for malignant neoplasm of breast (principal); Z80.2 Family history of malignant neoplasm of other respiratory and intrathoracic organs
CPT/HCPCS: 77049; A9585

== ENCOUNTER 2022-08-16 13:53 | Outpatient (REF) | payer OTHER, SELFPAY ==
[2022-08-16 14:04] LABS: MANUAL DIFF FLAG NO
[2022-08-16 14:07] LABS: Basophils Percent Auto 0.7 % (0-2); Eosinophils Absolute Auto 0.2 X10*3/uL (0.0-0.4); Hematocrit 38.4 % (37.0-47.0); Hemoglobin 12.6 g/dl (12.0-16.0); Imm Gran Abs Auto 0.01 X10*3/uL (0.00-0.03); Imm Gran Pct Auto 0.2 % (0.0-0.4); Lymphocytes Absolute Auto 1.9 X10*3/uL (1.2-4.9); Lymphocytes Percent Auto 34.6 % (20-40); Mean Corpuscular HGB Conc 32.8 g/dl (31.0-35.0); Mean Corpuscular Hemoglobin 28.8 pg (27.0-33.0); Mean Corpuscular Volume 87.7 fL (80.0-98.0); Mean Platelet Volume 10.2 fL (9.4-12.3); Monocytes Absolute Auto 0.5 X10*3/uL (0.1-1.2); Neutrophils Absolute Auto 2.8 x10*3/uL (2.0-8.3); Neutrophils Percent Auto 51.5 % (45-73); Platelet Count 327 X10*3/uL (160-400); Red Blood Count 4.38 X10*6/uL (4.20-5.50); White Blood Count 5.4 X10*3/uL (4.8-10.8)
[2022-08-16 15:57] LABS: Alanine Aminotransferase 18 U/L (0-31); Albumin Level 4.7 g/dL (3.5-5.0); Alkaline Phosphatase 68 U/L (39-117); Anion Gap 16 (12-20); Aspartate Amino Transferase 19 U/L (5-31); Bilirubin Total 0.6 mg/dL (0.0-1.0); Blood Urea Nitrogen 14 mg/dL (9-16); Calcium 9.8 mg/dL (8.4-10.2); Carbon Dioxide 23 mmol/L (22-29); Chloride 104 mmol/L (96-108); Estimated Glomerular Filt Rate > 60; Glucose Random 84 mg/dL (60-115); Lactate Dehydrogenase 200 U/L (122-220); Potassium 4.3 mmol/L (3.3-5.1); Sodium 139 mmol/L (135-145); Total Protein 7.8 g/dL (6.5-8.0)
== END 2022-08-16 13:54 | disposition home or self-care (01) ==
LOC: HO.LAB 13:53
PROVIDERS: Internal Medicine Medical Oncology; PCP Internal Medicine; Visit Provider Surgery
DX: R10.11 Right upper quadrant pain (principal); D72.819 Decreased white blood cell count, unspecified
CPT/HCPCS: 36415; 80053; 83615; 85025

== ENCOUNTER 2022-08-16 15:19 | Outpatient (REF) | payer OTHER, SELFPAY ==
--- NOTE | ~2022-08-16 | US_ITS ---
EXAMINATION: US ABDOMEN LIMITED CLINICAL INFORMATION: Right upper quadrant pain. COMPARISON: None TECHNIQUE: Real-time imaging of the right upper quadrant abdominal viscera. FINDINGS: PANCREAS: Visualized portions unremarkable. LIVER: Unremarkable. GALLBLADDER: Unremarkable. COMMON BILE DUCT: Normal in caliber measuring 0.2 cm in diameter. RIGHT KIDNEY: 9.0 cm. Unremarkable. FREE FLUID: None. US/US abdomen limited IMPRESSION: Unremarkable abdominal ultrasound.
== END 2022-08-16 15:20 | disposition home or self-care (01) ==
LOC: HO.US 15:19
PROVIDERS: Visit Provider Surgery
DX: R10.11 Right upper quadrant pain (principal)
CPT/HCPCS: 76705

== ENCOUNTER → 2022-08-17 10:30 | Outpatient (REF) | payer OTHER, SELFPAY ==
--- NOTE | ~2022-08-17 | NM_ITS ---
EXAMINATION: WI BILIARY TRACT IMAGING STUDY WITH CCK CLINICAL INFORMATION: Intermittent right upper quadrant pain.. COMPARISON: Ultrasound dated 08/16/2022. TECHNIQUE: Serial gamma scintillation camera images were obtained over the abdomen for a total observation period of 88 minutes following the intravenous administration of 5.5 mCi Tc-99m Mebrofenin. FINDINGS: There is good concentration of activity in the liver by 5 minutes post injection. Biliary activity is visualized by 7 minutes. The gallbladder is well visualized by 23 minutes. Small bowel is well visualized by 14 minutes. At 60 minutes post radiopharmaceutical injection, a 30-minute infusion of 1.4 micrograms Sincalide was then begun and an additional 28minutes of images were obtained. There is good emptying of the gallbladder. By the end of the study there is good clearance of activity from the liver and visualization of diffuse small bowel activity. The calculated gallbladder ejection fraction is 84% (normal gallbladder ejection fraction is greater than 35%). WI/WI hepatobiliary w pharm IMPRESSION: * No evidence of cholecystitis. * Patent common bile duct. * Normal gallbladder ejection fraction. * Normal liver function.
== END ==
LOC: HO.NUCMED 10:30
PROVIDERS: PCP Internal Medicine; Visit Provider Surgery
DX: R10.11 Right upper quadrant pain (principal)
CPT/HCPCS: 78227; A9537; J2805

== ENCOUNTER 2022-10-08 07:14 | Outpatient (REF) | payer OTHER, SELFPAY ==
--- NOTE | ~2022-10-08 | CT_ITS ---
EXAMINATION: CT ABDOMEN AND PELVIS WITH CONTRAST CLINICAL INFORMATION: Severe right upper quadrant and epigastric pain COMPARISON: HIDA scan 08/07/2022. Abdominal ultrasound 08/06/2022 TECHNIQUE: Multidetector volumetric images were obtained from the superior aspect of the liver through the pubic symphysis following administration 85 mL of Omnipaque 350 intravenous contrast. Sagittal and coronal reformatted images were obtained on the technologist's workstation. Oral contrast: No This CT examination was performed using dose optimization techniques as appropriate, variously including the following: *Automated exposure control *Adjustment of mA and/or kV according to patient size (this includes techniques or standardized protocols for targeted exams where dose is matched to indication/reason for exam; i.e. extremities or head) *Use of iterative reconstruction technique DLP: 413 mGy-cm FINDINGS: LUNG BASES: The visualized lung bases are unremarkable. LIVER, GALLBLADDER, AND BILIARY TREE: The liver is normal in size, shape, and attenuation. No focal hepatic lesion or biliary ductal dilatation is present. The gallbladder is unremarkable with no evidence of radiopaque gallstones, gallbladder wall thickening, or obvious pericholecystic inflammatory changes. PANCREAS: Unremarkable. SPLEEN: Unremarkable. ADRENAL GLANDS: Unremarkable. KIDNEYS AND URETERS: The kidneys are normal in size, shape, and attenuation. No hydronephrosis, hydroureter, or calculi seen. No perinephric stranding. BLADDER: Unremarkable. GASTROINTESTINAL TRACT: Stomach and small bowel are nondilated. Oral contrast seen distally to the colon. The appendix is not definitely seen. There is trace free fluid along the right paracolic gutter extending to the right ovary. ABDOMINAL WALL: Small fat-containing umbilical hernia. LYMPH NODES: Normal. VASCULAR: Unremarkable. PELVIC VISCERA: 2.4 cm simple appearing cyst in the right ovary. 3.4 cm simple appearing cyst in the left ovary. These are most likely physiologic cyst particularly if the patient is premenopausal. No imaging follow-up recommended. OSSEOUS STRUCTURES: Unremarkable. CT/CT abdomen pelvis w IV con IMPRESSION: Trace free fluid along the right paracolic gutter extending to the right ovary. The ovaries are normal in appearance with simple appearing bilateral renal cysts, most likely physiologic findings especially if the patient is a reproductive age female patient. Fleischner guidelines were followed.
[2022-10-08] MEDS: iohexoL 350 MG/ML 100 ML INFUS..BTL IV (09:49)
[2022-10-08] MEDS: Barium Sulfate Oral (Berry) 450 ML ORAL.SUSP 900 ML PO (09:49)
[2022-10-09 07:19] LABS: Creatinine POC 0.7 mg/dL (0.5-1.4); GFR POC > 60
== END 2022-10-08 07:15 | disposition home or self-care (01) ==
LOC: HO.CT 07:14
PROVIDERS: Visit Provider Internal Medicine Medical Oncology
DX: R10.11 Right upper quadrant pain (principal)
CPT/HCPCS: 74177; 82565; Q9967

== ENCOUNTER → 2022-11-06 14:02 | Outpatient (BNVA) | payer OTHER, SELFPAY | PROVIDERS: PCP Internal Medicine; Visit Provider Surgery | DX: Z13.89 Encounter for screening for other disorder (principal) ==

== ENCOUNTER 2022-11-12 08:19 | Outpatient (REF) | payer OTHER, SELFPAY ==
--- NOTE | ~2022-11-12 | MM_ITS ---
EXAMINATION: MM DIAGNOSTIC DIGITAL BREAST TOMOSYNTHESIS, BILATERAL US DIAGNOSTIC ULTRASOUND BREAST, RIGHT CLINICAL INFORMATION: Due for yearly. Palpable nodule noted by patient upper outer quadrant right breast for approximately one week. Family history breast cancer (sister, grandmother). The lifetime risk of breast cancer based on the Tyrer-Cuzick Model is 11%. COMPARISON: Mammography: 11/24/2021, 11/09/2020, 11/04/2019 TECHNIQUE: Digital breast tomosynthesis is performed in both the craniocaudal and mediolateral oblique views along with computer-aided detection (CAD). Synthesized 2D images are generated from the tomosynthesis. Additional spot right MLO view is obtained. Ultrasound right breast is targeted to the area of clinical concern upper outer quadrant using grayscale imaging and color Doppler without and with harmonics. Patient is able to point to area of concern at time of imaging. FINDINGS: The breasts are heterogeneously dense, which may obscure small masses (ACR BI-RADS breast composition Category c). Parenchymal pattern is similar to prior studies. There is no developing density or architectural abnormality. No abnormal calcifications. No mammographic correlate for patient's palpable concern. The axilla and skin contours are unremarkable. No significant changes. Ultrasound right breast demonstrates no cystic or solid mass, architectural abnormality, or focal duct ectasia. No skin thickening. Results are discussed with the patient at time of visit. Patient should be managed based on the clinical impression. If clinically indicated, further evaluation may be considered with surgical consult. Decision to proceed with biopsy should be based on clinical grounds and degree of clinical concern. MM/MM tomosynthesis diagnostic BI IMPRESSION: -No mammographic evidence of malignancy. -Unremarkable targeted right breast ultrasound. ASSESSMENT: BI-RADS 1: Negative RECOMMENDATION: 1. Patient should be managed based on the clinical impression. If clinically indicated, further evaluation may be considered with surgical consult. Decision to proceed with biopsy should be based on clinical grounds and degree of clinical concern. 2. Otherwise, routine annual screening mammography. This patient's information was entered into a reminder system with a target due date for their next mammogram.
== END 2022-11-12 08:20 | disposition home or self-care (01) ==
LOC: HO.MAMMO 08:19
PROVIDERS: PCP Internal Medicine; Visit Provider Surgery
DX: N63.11 Unspecified lump in the right breast, upper outer quadrant (principal); Z91.89 Other specified personal risk factors, not elsewhere classified
CPT/HCPCS: 76642; 77062; 77066

== ENCOUNTER → 2022-11-27 13:26 | Outpatient (BNVA) | payer OTHER, SELFPAY | PROVIDERS: PCP Internal Medicine; Visit Provider Surgery | DX: Z13.89 Encounter for screening for other disorder (principal) ==

== ENCOUNTER → 2022-11-29 14:31 | Outpatient (BNVA) | payer OTHER, SELFPAY | PROVIDERS: PCP Internal Medicine; Visit Provider Surgery | DX: Z13.89 Encounter for screening for other disorder (principal) ==

== ENCOUNTER 2023-02-20 07:28 | Emergency (ER) | payer OTHER, SELFPAY ==
--- NOTE | ~2023-02-20 | XR_ITS ---
EXAMINATION: XR CHEST CLINICAL INFORMATION: Chest pain. COMPARISON: Chest radiographs dated 09/18/2021. TECHNIQUE: Frontal view of the chest was obtained. FINDINGS: No significant abnormality is noted involving the heart, lungs, mediastinum, bony thorax or soft tissues. XR/XR chest 1V IMPRESSION: No acute cardiopulmonary process.
--- NOTE | 2023-02-20 07:30 | ECG_ITS ---
Test Reason : cp Blood Pressure : / mmHG Vent. Rate : 076 BPM Atrial Rate : 076 BPM P-R Int : 156 ms QRS Dur : 090 ms QT Int : 400 ms P-R-T Axes : 065 031 053 degrees QTc Int : 450 ms Normal sinus rhythm Normal ECG When compared with ECG of 25-JAN-2016 00:13, No significant change was found Referred By: Generic ED Physician Electronically Signed By:BENEDICTO CASH
[2023-02-20 07:31] VITALS: BP 182/95; PULSE 83; RESP 20; TEMP 36.6; O2SAT 99; BMI 26.4
[2023-02-20 07:41] VITALS: PULSE 80; RESP 20; O2SAT 99
--- NOTE | 2023-02-20 08:15 | ED.CHESTPAIN ---
HPI - Chest Pain General Chief Complaint: Chest Pain Stated Complaint: Chest pain Time Seen by Provider: 02/20/23 07:41 Source: patient Mode of arrival: ambulatory Limitations: no limitations History of Present Illness HPI narrative: 52-year-old female with history of vertigo, scoliosis who presents to the ER for evaluation of acute onset of sharp, transient, right-sided chest pain that started around 530 this morning after she woke up. She states it was associated with lightheaded and dizziness along with nausea and headache. She states the pain was brief and resolved on its own. She states the dizziness, lightheadedness, nausea persisted. She describes it as lightheadedness, not room spinning or similar to her prior vertigo episodes. She denies any vomiting, abdominal pain, current chest pain. MD complaint: chest pain and other (dizziness) Onset (ago): hour(s) Timing of current episode: now resolved Prior episodes: No Onset: during rest Pain location: right chest Pain radiation: none Severity: severe Quality: sharp Relieving factors: rest Exacerbating factors: nothing Associated symptoms: nausea and other (headache) Treatment prior to arrival: none Risk Factors Coronary artery disease risk factors: none Thoracic aortic dissection risk factors: none Related Data On Oral Contraceptives: No Home Medications Medication Instructions Recorded Confirmed cyclobenzaprine 5 mg tablet 5 mg PO TID PRN Muscle Pain 01/10/22 11/30/22 Previous Rx's Medication Instructions Recorded albuterol sulfate 90 mcg/actuation 2 puff inhalation Q4-6H PRN 09/26/21 aerosol inhaler shortness of breath or wheezing #8.5 grams meclizine 25 mg tablet 25 mg PO TID PRN dizziness 30 days 01/10/22 #90 tabs cholecalciferol (vitamin D3) 25 25 mcg PO DAILY 90 days #90 caps 04/24/22 mcg (1,000 unit) capsule Allergies Allergy/AdvReac Type Severity Reaction Status Date / Time oranges Allergy Unknown rash Uncoded 11/29/22 14:51 penicillin Allergy Unknown rash Uncoded 11/29/22 14:51 Review of Systems Review of Systems: Yes all other systems are reviewed and are negative PMFSH Past Medical History Medical History Chronic fatigue Leukopenia Mild persistent asthma Scoliosis Vertigo Surgical History H/O: hysterectomy History of tubal ligation Family History Family History Mother Diabetes Stroke Heart attack Father Heart attack Sister Breast cancer, Onset Age: 56 Sister Brain cancer Skin cancer Brother Prostate cancer Social History Social History Household Members: Spouse Housing: House Are you a primary respiratory care technician to a significant other at home: Yes (sister) Do you presently have visiting nurse or other home services: No Alcohol intake: current Alcohol intake frequency: does not drink Alcohol type: wine Patient Tobacco Use Status: Never used Tobacco Smoked in Last 30 Days: No e-Cigarette/Vaping Use: Never Used Second Hand Smoke Exposure: No Use of substances other than those prescribed or required for medical reasons: No Advance Directives: No service: No Current occupational status: employed 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 Oriented X3. No acute distress. Head: normocephalic, atraumatic. Eyes: Pupils equal, round and reactive to light. ENT: Pharynx normal. No tonsillar swelling or exudate. Neck: Normal inspection. Neck supple. CVS: Normal heart rate and rhythm. Pulses normal. Respiratory: No respiratory distress. Breath sounds normal. Abdomen: Soft and nontender. +BS x4 Skin: Skin warm and dry. Normal skin color. Normal skin turgor. No rashes. Extremities: No lower extremity edema. No joint swelling. No calf tenderness Neuro/psych: Oriented X 3. No motor deficit. No sensory deficit. CN II-XII intact. Normal speech and cognition. Course Reevaluation(s) Reevaluation #1: Dizziness improved, Tylenol given for complaints of a headache. Nausea improved. First troponin is negative. Second troponin is pending. Orthostatic vital signs are negative. She is feeling better overall. Time: 11:15 Reevaluation #2: 2nd trop negative. stable for d/c home Medications Administered Discontinued Medications Generic Name Dose Route Start Last Admin Trade Name Carina PRN Reason Stop Dose Admin Acetaminophen 975 mg 02/20/23 10:00 02/20/23 10:03 Acetaminophen 325 Mg Tablet PO 02/20/23 10:01 975 mg ONCE ONE Administration Sodium Chloride 1,000 mls @ 999 mls/hr 02/20/23 07:45 02/20/23 10:51 Ns IVCONT 02/20/23 08:45 Infused .Q1H1M SHE Infusion Ondansetron HCl 4 mg 02/20/23 07:41 02/20/23 08:44 Ondansetron Hcl 4 Mg/2 Ml Vial IVPUSH 02/20/23 07:42 4 mg ONCE ONE Administration Medical Decision Making Medical Decision Making [facility] Narrative: 52-year-old female with no cardiac risk factors presents to the ER for evaluation of right-sided, nonradiating, transient right-sided chest pain that occurred this morning. It was accompanied with lightheadedness and nausea. Her EKG is unremarkable. Her 1st troponin is negative. Differential Diagnosis Differential Diagnoses: The differential diagnosis associated with the presentation includes Atypical chest pain, anxiety, ACS, myocarditis, pericarditis, pneumonia, costochondritis Lab Data [facility] Lab Attestation statement: I reviewed the patient's lab results. 02/20/23 08:39 02/20/23 08:39 Labs: Lab Results 02/20/23 02/20/23 02/20/23 Range/Units 08:39 08:39 08:39 WBC 5.3 (4.8-10.8) X10*3/uL RBC 4.22 (4.20-5.50) X10*6/uL Hgb 12.3 (12.0-16.0) g/dl Hct 36.9 L (37.0-47.0) % MCV 87.4 (80.0-98.0) fL MCH 29.1 (27.0-33.0) pg MCHC 33.3 (31.0-35.0) g/dl RDW 13.8 (11.0-16.0) % Plt Count 352 (160-400) X10*3/uL MPV 10.4 (9.4-12.3) fL Immature Gran % (Auto) 0.2 (0.0-0.4) % Neut % (Auto) 61.0 (45-73) % Lymph % (Auto) 28.6 (20-40) % Milam % (Auto) 7.5 (2-11) % Eos % (Auto) 2.1 (0-4) % Baso % (Auto) 0.6 (0-2) % Lymph # (Auto) 1.5 (1.2-4.9) X10*3/uL Milam # (Auto) 0.4 (0.1-1.2) X10*3/uL Eos # (Auto) 0.1 (0.0-0.4) X10*3/uL Baso # (Auto) 0.0 (0.0-0.2) X10*3/uL Abs Immat Gran (auto) 0.01 (0.00-0.03) X10*3/uL Absolute Neuts (auto) 3.2 (2.0-8.3) x10*3/uL Absolute Nucleated RBC 0.000 (0.0-0.012) X10*3/uL Nucleated RBC % (auto) 0.0 (0.0-0.2) /100WBC Sodium 141 (135-145) mmol/L Potassium 4.0 (3.3-5.1) mmol/L Chloride 110 H (96-108) mmol/L Carbon Dioxide 22 (22-29) mmol/L Anion Gap 13 (12-20) BUN 13 (9-16) mg/dL Creatinine 0.85 (0.5-1.4) mg/dL Estim Creat Clear Calc 75.9 Estimated GFR > 60 Random Glucose 93 (60-115) mg/dL Calcium 9.4 (8.4-10.2) mg/dL Magnesium 1.8 (1.6-2.6) mg/dL Total Bilirubin 0.5 (0.0-1.0) mg/dL Direct Bilirubin 0.2 (0.0-0.5) mg/dL AST 18 (5-31) U/L ALT 16 (0-31) U/L Alkaline Phosphatase 69 (39-117) U/L Troponin I High Sens < 2.7 (<3.5-17.0) ng/L B-Natriuretic Peptide (<100) pg/mL Total Protein 7.3 (6.5-8.0) g/dL Albumin 4.3 (3.5-5.0) g/dL 02/20/23 02/20/23 Range/Units 08:39 11:30 WBC (4.8-10.8) X10*3/uL RBC (4.20-5.50) X10*6/uL Hgb (12.0-16.0) g/dl Hct (37.0-47.0) % MCV (80.0-98.0) fL MCH (27.0-33.0) pg MCHC (31.0-35.0) g/dl RDW (11.0-16.0) % Plt Count (160-400) X10*3/uL MPV (9.4-12.3) fL Immature Gran % (Auto) (0.0-0.4) % Neut % (Auto) (45-73) % Lymph % (Auto) (20-40) % Milam % (Auto) (2-11) % Eos % (Auto) (0-4) % Baso % (Auto) (0-2) % Lymph # (Auto) (1.2-4.9) X10*3/uL Milam # (Auto) (0.1-1.2) X10*3/uL Eos # (Auto) (0.0-0.4) X10*3/uL Baso # (Auto) (0.0-0.2) X10*3/uL Abs Immat Gran (auto) (0.00-0.03) X10*3/uL Absolute Neuts (auto) (2.0-8.3) x10*3/uL Absolute Nucleated RBC (0.0-0.012) X10*3/uL Nucleated RBC % (auto) (0.0-0.2) /100WBC Sodium (135-145) mmol/L Potassium (3.3-5.1) mmol/L Chloride (96-108) mmol/L Carbon Dioxide (22-29) mmol/L Anion Gap (12-20) BUN (9-16) mg/dL Creatinine (0.5-1.4) mg/dL Estim Creat Clear Calc Estimated GFR Random Glucose (60-115) mg/dL Calcium (8.4-10.2) mg/dL Magnesium (1.6-2.6) mg/dL Total Bilirubin (0.0-1.0) mg/dL Direct Bilirubin (0.0-0.5) mg/dL AST (5-31) U/L ALT (0-31) U/L Alkaline Phosphatase (39-117) U/L Troponin I High Sens < 2.7 (<3.5-17.0) ng/L B-Natriuretic Peptide 85 (<100) pg/mL Total Protein (6.5-8.0) g/dL Albumin (3.5-5.0) g/dL Independent Interpretation I performed an independent interpretation of an: EKG and Plain X-Ray Interpretation: EKG with normal sinus rhythm, ventricular rate 76 beats per minute, normal CO interval, normal QTC, no ST segment elevations or depressions. No change from prior. Chest x-ray with clear lungs, no pneumonia. Agree with radiology read. Radiology Impression Discussion of test interpretation with radiology: I have reviewed the radiologist's reading. Radiologist Impression: EXAMINATION: XR CHEST CLINICAL INFORMATION: Chest pain. COMPARISON: Chest radiographs dated 09/18/2021. TECHNIQUE: Frontal view of the chest was obtained. FINDINGS: No significant abnormality is noted involving the heart, lungs, mediastinum, bony thorax or soft tissues. XR/XR chest 1V IMPRESSION: No acute cardiopulmonary process. External Record Review External record reviewed: Outpatient record, Prior outpatient labs and Prior outpatient radiology Prescription Management I considered prescription management with: Pain Medication Critical Care Time Critical Care Time Critical Care Time: No Discharge Plan Discharge Clinical Impression: Atypical chest pain, Lightheadedness Patient Disposition: Home, Self-Care Instructions: Lightheadedness (ED), Noncardiac Chest Pain (ED) Additional Instructions: Your lab workup, EKG, chest x-ray were all unremarkable today. It is unlikely to be cardiac related chest pain. Recommend rest, drink plenty of fluids today. Follow-up with your doctor soon as possible. If you develop new or worsening symptoms call 911 or come back to the ER for further evaluation. Prescriptions: No Action cholecalciferol (vitamin D3) 25 mcg (1,000 unit) capsule 25 mcg PO DAILY 90 Days Qty: 90 1RF albuterol sulfate 90 mcg/actuation HFA aerosol inhaler 2 puff inhalation Q4-6H PRN (Reason: shortness of breath or wheezing) Qty: 8.5 0RF cyclobenzaprine 5 mg tablet 5 mg PO TID PRN (Reason: Muscle Pain) meclizine 25 mg tablet 25 mg PO TID PRN (Reason: dizziness) 30 Days Qty: 90 0RF Referrals: Jennifer Bean MD [Primary Care Provider] - Interventions: ED Discharge Assessment Last Done: 02/20/23 12:32 Discharge Date/Time: 02/20/23 12:33
[2023-02-20 08:20] VITALS: BP 142/73; PULSE 78; RESP 18; O2SAT 100
[2023-02-20] MEDS: 0.9 % Sodium Chloride 1,000 ML 999 ML IVCONT (08:41)
[2023-02-20] MEDS: ondansetron HCL 4 MG/2 ML VIAL IVPUSH (08:44)
[2023-02-20 08:46] LABS: MANUAL DIFF FLAG NO
[2023-02-20 08:51] LABS: Basophils Percent Auto 0.6 % (0-2); Eosinophils Absolute Auto 0.1 X10*3/uL (0.0-0.4); Eosinophils Percent Auto 2.1 % (0-4); Hematocrit 36.9 % (37.0-47.0); Hemoglobin 12.3 g/dl (12.0-16.0); Imm Gran Abs Auto 0.01 X10*3/uL (0.00-0.03); Imm Gran Pct Auto 0.2 % (0.0-0.4); Lymphocytes Absolute Auto 1.5 X10*3/uL (1.2-4.9); Lymphocytes Percent Auto 28.6 % (20-40); Mean Corpuscular HGB Conc 33.3 g/dl (31.0-35.0); Mean Corpuscular Hemoglobin 29.1 pg (27.0-33.0); Mean Corpuscular Volume 87.4 fL (80.0-98.0); Mean Platelet Volume 10.4 fL (9.4-12.3); Monocytes Absolute Auto 0.4 X10*3/uL (0.1-1.2); Monocytes Percent Auto 7.5 % (2-11); Neutrophils Absolute Auto 3.2 x10*3/uL (2.0-8.3); Platelet Count 352 X10*3/uL (160-400); Red Blood Count 4.22 X10*6/uL (4.20-5.50); Red Cell Distribution Width 13.8 % (11.0-16.0); White Blood Count 5.3 X10*3/uL (4.8-10.8)
--- NOTE | 2023-02-20 08:57 | PC.NURSE ---
Alert and oriented. States she is very dizzy. Blood drawn and IV started per orders. No complains of any pain or discomfort, chest pain or sob. has a past history of vertigo. Family at bedside
[2023-02-20 09:05] LABS: Alanine Aminotransferase 16 U/L (0-31); Albumin Level 4.3 g/dL (3.5-5.0); Alkaline Phosphatase 69 U/L (39-117); Anion Gap 13 (12-20); Aspartate Amino Transferase 18 U/L (5-31); Bilirubin Direct 0.2 mg/dL (0.0-0.5); Bilirubin Total 0.5 mg/dL (0.0-1.0); Blood Urea Nitrogen 13 mg/dL (9-16); Calcium 9.4 mg/dL (8.4-10.2); Carbon Dioxide 22 mmol/L (22-29); Chloride 110 mmol/L (96-108); Creatinine Clr Calc Pharmacy 75.9; Estimated Glomerular Filt Rate > 60; Glucose Random 93 mg/dL (60-115); Magnesium 1.8 mg/dL (1.6-2.6); Sodium 141 mmol/L (135-145); Total Protein 7.3 g/dL (6.5-8.0)
[2023-02-20 09:10] LABS: B Type Natriuretic Peptide 85 pg/mL (<100)
[2023-02-20 09:13] LABS: Troponin-I High Sensitivity < 2.7 ng/L (<3.5-17.0)
[2023-02-20] MEDS: Acetaminophen 325 MG TABLET 975 MG PO (10:03)
--- NOTE | 2023-02-20 10:04 | PC.NURSE ---
Alert and oriented. States still dizzy and now has a headache. Medicated per order with prn tylenol.
[2023-02-20 11:03] VITALS: BP 119/88; PULSE 67; RESP 18
[2023-02-20 11:05] VITALS: BP 132/75; PULSE 64
[2023-02-20 11:06] VITALS: BP 128/83; BP 142/89; PULSE 67; PULSE 98
[2023-02-20 12:02] LABS: Troponin-I High Sensitivity < 2.7 ng/L (<3.5-17.0)
== END 2023-02-20 12:33 | disposition home or self-care (01) ==
PROVIDERS: Physician Assistant; Emergency Provider Emergency Medicine Emergency Medical Services; PCP Internal Medicine
DX: R07.89 Other chest pain (principal); R42 Dizziness and giddiness; I10 Essential (primary) hypertension; Z79.899 Other long term (current) drug therapy
CPT/HCPCS: 36415; 71045; 80048; 80076; 83735; 83880; 84484; 85025; 93005; 96361; 96374; 99284; 99285; J2405

== ENCOUNTER → 2023-03-20 16:16 | Outpatient (BNVA) | payer OTHER, SELFPAY | PROVIDERS: PCP Internal Medicine | DX: Z13.89 Encounter for screening for other disorder (principal) | CPT/HCPCS: 36415; 84450; 84460; 86706; 86803; 87389; 99202 ==

== ENCOUNTER → 2023-03-28 08:47 | Outpatient (REF) | payer OTHER, SELFPAY ==
--- NOTE | 2023-03-28 08:50 | CA_ITS ---
Acquisition Time: 2023-03-28 08:55:56 Total Exercise Time: 00:08:15 Test Indications: HTN Medications: ALBUTEROL LISINOPRIL MECLIZINE Protocol: JONAH Max HR: 164 BPM 96% of Pred: 170 BPM Max BP: 180/088 mmHG Max Work Load: 10.1 METS Exercise stress test exercise 8 min 15 sec of jonah protocol achieving 96% MPHR, without anginal symptoms, without arrhythmias, with normotensive response to exercise, without EKG changes. Test reviewed with Dr. Escobar. Referred By: Opal Ortiz Overread By: CLEMENTE ANGELES
== END ==
LOC: HO.CARD 08:47
PROVIDERS: PCP Internal Medicine; Visit Provider Nurse Practitioner Family
DX: I10 Essential (primary) hypertension (principal)
CPT/HCPCS: 93017

== ENCOUNTER 2023-04-25 12:48 | Outpatient (AMB) | payer OTHER, SELFPAY ==
--- NOTE | 2023-04-25 12:57 | MHC.PC.OV ---
Vital Signs 04/25/23 12:58 Height 5 ft 4 in Weight 158 lb BMI 27.1 BP 116/74 Blood Pressure Location Lt brachial Position Sitting Intake Visit Reasons: Annual Exam Intake Note: Patient here for a physical exam Laser Beam Cutter Required: No Accompanied by: Self / Same As Patient Allergies apple Adverse Reaction (Severe, Verified 04/25/23 13:13) Hives oranges Allergy (Unknown, Uncoded 04/25/23 13:13) rash penicillin Allergy (Unknown, Uncoded 04/25/23 13:13) rash Medication List - Last Reconciled 04/25/23 by Jennifer Gonzalez MD albuterol sulfate 90 mcg/actuation 2 puffs inhalation Q4-6H PRN cholecalciferol (vitamin D3) 25 mcg PO DAILY 90 days cyclobenzaprine 5 mg PO TID PRN lisinopril 10 mg PO DAILY meclizine 25 mg PO TID PRN 30 days Tobacco use date assessed: 03/08/23 Dental Screening Dental Screen Date: 04/25/23 Did you have a dental visit in the last 12 months?: No Did you have a dental problem in the last 6 months where you did not have access to dental care?: No Was dental information given to patient?: Patient has dentist HPI HPI Comments History of Present Illness Details This is a 52-year-old female that comes for her physical exam. Last mammogram was 2022. No need for Pap smears due to hysterectomy for benign reasons. Colonoscopy done about 2 years ago and was normal. No chest pain or shortness of breath. Complains of a rash in the lips and will be referred to dermatology. [facility] Medical History Chronic fatigue Leukopenia Mild persistent asthma Scoliosis Vertigo Surgical History H/O: hysterectomy History of tubal ligation Family History Mother Diabetes Stroke Heart attack Father Heart attack Sister Breast cancer, Onset Age: 56 Sister Brain cancer Skin cancer Brother Prostate cancer Social History (Updated 04/25/23 @ 13:19 by Jennifer Gonzalez MD) Household Members: Spouse Housing: House Are you a primary customer care representative to a significant other at home: Yes (sister) Do you presently have visiting nurse or other home services: No Alcohol intake: current Alcohol intake frequency: does not drink Alcohol type: wine Patient Tobacco Use Status: Never used Tobacco e-Cigarette/Vaping Use: Never Used Second Hand Smoke Exposure: No service: No Current occupational status: employed 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 Lamont Hirsch, Kathi Sanders, Dale Crenshaw and colleagues, with an educational antoine from [employer].. Review of Systems Const All systems reviewed & are unremarkable except as noted in HPI and below Eyes Reports no additional complaints, Denies change in vision and Denies other visual disturbances Card Denies chest pain at rest, Denies chest pain with activity, Denies edema, Denies irregular heart rhythm, Denies claudication, Denies dyspnea, Denies dyspnea on exertion, Denies orthopnea, Denies paroxysmal nocturnal dyspnea and Denies slow heart rate Resp Denies cough, Denies dyspnea and Denies dyspnea on exertion GI Denies abdominal pain, Denies change in bowel habits, Denies excessive flatus, Denies nausea and Denies vomiting Denies urinary incontinence, Denies urinary hesitancy and Denies urinary urgency Musc Denies abnormal gait, Denies atrophy, Denies deformity and Denies limited range of motion Skin/Breast Denies bleeding lesions, Denies changing lesions and Denies rash Neuro Denies abnormal gait and Denies lack of coordination Physical exam (Primary Care) Vital Signs: Last Vital Signs BP 116/74 04/25/23 12:58 BMI result Body Mass Index 27.1 Tobacco/Smoking Status: Tobacco use Status Tobacco use date assessed 03/08/23 04/25/23 13:02 Patient Tobacco Use Status Never used Tobacco 04/25/23 13:19 e-Cigarette/Vaping Use Never Used 04/25/23 13:19 Thrive Assessment: Date of Thrive Assessment Date Thrive assessed 03/08/23 04/25/23 13:02 Eyes General: appearance normal, both eyes and all related structures Eyelids: Yes eyelids normal Conjunctivae: conjunctivae normal Neck Neck: Yes normal visual inspection and Yes supple Resp Effort & Inspection: normal respiratory effort Auscultation: clear to auscultation bilaterally Cardio Jugular venous distension: no JVD Rate: regular rate Rhythm: regular rhythm Heart sounds: S1 normal heart sound present and S2 normal heart sound present Extrem General: Yes full ROM Assessment and Plan Assessment & Plan (1) Physical exam: Code(s): Z00.00 - Encounter for general adult medical examination without abnormal findings Plan: Repeat in a year. Orders: Orders Lipid Panel Today E78.5 - Hyperlipidemia, unspecified Vitamin D 25-OH Total Today E55.9 - Vitamin D deficiency, unspecified Referrals Dermatology Referral R21 - Rash and other nonspecific skin eruption Medications: New Ventolin HFA 90 mcg/actuation (albuterol sulfate) 2 puffs inhalation Q6H PRN 8 grams 1RF shortness of breath or wheezing 30 days NS Changed From cyclobenzaprine 5 mg PO TID PRN Muscle Pain To cyclobenzaprine 5 mg PO TID PRN 90 tabs 0RF Muscle Pain 30 days Discontinued albuterol sulfate 90 mcg/actuation Discontinued Reason: Patient Completed Course 2 puffs inhalation Q4-6H PRN 8.5 grams 0RF shortness of breath or wheezing Coding Level of Care Code Est Pt Prev Care 40-64y(63841) Diagnoses Physical exam Z00.00 Time Spent (min) 31
[2023-04-25 12:58] VITALS: BP 116/74; BMI 27.1
== END 2023-04-25 13:23 | disposition home or self-care (01) ==
PROVIDERS: PCP Internal Medicine; Visit Provider Internal Medicine
DX: Z00.00 Encounter for general adult medical examination without abnormal findings (principal)
CPT/HCPCS: 99396

== ENCOUNTER 2023-04-30 15:26 | Outpatient (AMB) | payer OTHER, SELFPAY ==
--- NOTE | 2023-04-30 15:33 | A.OFFVIS_ITS ---
Intake Vital Signs 04/30/23 15:39 Height 5 ft 4 in Weight 160 lb 6 oz BMI 27.5 BP 177/99 H Blood Pressure Location Lt brachial Position Sitting Pulse 73 Intake Visit Reasons: 6 month follow up breast exam Intake Note: Patient is seen in office for 6 month follow up visit, breast exam. Patient c/o: denies any concerns regarding the breast Slusher Operator Required: No [employer]oft Hcm Developer: Pe[employer] Hcm Developer Present Accompanied by: Self / Same As Patient Allergies apple Adverse Reaction (Severe, Verified 04/30/23 15:38) Hives oranges Allergy (Unknown, Uncoded 04/30/23 15:38) rash penicillin Allergy (Unknown, Uncoded 04/30/23 15:38) rash Medication List - Last Reconciled 05/01/23 by Maulik Franco MD cholecalciferol (vitamin D3) 25 mcg PO DAILY 90 days cyclobenzaprine 5 mg PO TID PRN 30 days lisinopril 10 mg PO DAILY meclizine 25 mg PO TID PRN 30 days Ventolin HFA 90 mcg/actuation (albuterol sulfate) 2 puffs inhalation Q6H PRN 30 days NS HPI HPI Comments History of Present Illness Details 52-year-old female patient with a strong family history of breast cancer including her sister who from from breast cancer, a maternal aunt diagnosed with breast cancer in her 50s, and a maternal cousin diagnosed with breast cancer in her 40s. She was identified as being at high risk for breast cancer due to her family history with a Tyrer-Cuzick remaining lifetime risk of breast cancer calculated at 20 1%. Breast MRI performed on 05/07/2020 revealed a 7 mm somewhat linear non mass enhancement in the 12 o'clock position, 7 cm from the nipple which was unchanged from the prior examination. In the 10 o'clock position, 10 cm from the nipple, an area of skin enhancement was identified. A similar finding was noted on the right breast and is attributed to positioning in the breast coil. Findings were considered benign (BI-RADS 2 bilaterally). Her most recent mammogram performed on 11/12/2022 revealed no mammographic evidence of malignancy (BI-RADS 1). She is 2 para 2, did not breast feed her children. She underwent a hysterectomy without oophorectomy at the age of 38. She denies any new breast symptoms. [facility] Medical History Chronic fatigue Leukopenia Mild persistent asthma Scoliosis Vertigo Surgical History H/O: hysterectomy History of tubal ligation Family History Mother Diabetes Stroke Heart attack Father Heart attack Sister Breast cancer, Onset Age: 56 Sister Brain cancer Skin cancer Brother Prostate cancer Social History Household Members: Spouse Housing: House Are you a primary transitional care manager to a significant other at home: Yes (sister) Do you presently have visiting nurse or other home services: No Alcohol intake: current Alcohol intake frequency: does not drink Alcohol type: wine Patient Tobacco Use Status: Never used Tobacco e-Cigarette/Vaping Use: Never Used Second Hand Smoke Exposure: No service: No Current occupational status: employed 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[employer] [place] Current occupational exposures/hazards: No Cognitive needs: No Hearing needs: No Vision needs: Yes Female Reproductive History Menstrual Age of Menarche: 14 Review of Systems Const All systems reviewed & are unremarkable except as noted in HPI and below Denies nipple discharge Skin/Breast Denies breast swelling, Denies breast skin changes, Denies breast pain, Denies breast mass and Denies nipple discharge Derrick/Lymph Denies lymphadenopathy Physical Exam Vital Signs: Last Vital Signs Pulse 73 04/30/23 15:39 BP 177/99 H 04/30/23 15:39 BMI result Body Mass Index 27.5 Const General: cooperative and no acute distress Nutritional Appearance: well nourished Orientation/consciousness: patient oriented x3 Limitations: no limitations HEENT Head: Yes normocephalic and Yes atraumatic Ears: hearing grossly normal bilaterally Chest Other: Left breast: No skin change, no nipple retraction, no nipple discharge, no palpable mass, no enlarged lymph nodes. Right breast: No skin change, no nipple retraction, no nipple discharge, no palpable mass, no enlarged lymph nodes Resp Effort & Inspection: normal respiratory effort, no audible wheezes, no cough and no respiratory distress Cardio Jugular venous distension: no JVD GI Inspection: Yes normal to inspection Skin Other: Warm, dry, no rash Neuro General: patient oriented x3 Extrem General: Yes no clubbing, cyanosis or edema Assessment & Plan Assessment & Plan (1) At high risk for breast cancer: Code(s): Z91.89 - Other specified personal risk factors, not elsewhere classified (2) Family history of breast cancer: Code(s): Z80.3 - Family history of malignant neoplasm of breast (3) Breast mass, right: Code(s): N63.10 - Unspecified lump in the right breast, unspecified quadrant Plan 52-year-old female patient determined to be at high risk for breast cancer due to family history presenting for routine breast examination. Examination today revealed no suspicious findings in either breast. Her most recent mammogram of 11/12/2022 revealed no mammographic evidence of malignancy (BI-RADS 1). Her most recent MRI of 05/07/2022 also revealed no MR specific evidence of malignancy (BI- RADS 2 bilaterally. She will be due for her annual MRI later this month. I recommended follow-up examination in 6 months. She is welcome to call sooner for any new concerns. Orders: Orders MR breast BI wo/w con 04/30/23 Z80.3 - Family history of malignant neoplasm of breast, Z91.89 - Other specified personal risk factors, not elsewhere classified Coding Level of Care Code Est Pt Level 3 (48651) Diagnoses At high risk for breast cancer Z91.89 Family history of breast cancer Z80.3 Breast mass, right N63.10
[2023-04-30 15:39] VITALS: BP 177/99; PULSE 73; BMI 27.5
== END 2023-04-30 15:49 | disposition home or self-care (01) ==
PROVIDERS: PCP Internal Medicine; Visit Provider Surgery
DX: N63.10 Unspecified lump in the right breast, unspecified quadrant (principal); Z15.01 Genetic susceptibility to malignant neoplasm of breast; Z80.3 Family history of malignant neoplasm of breast
CPT/HCPCS: 99213

== ENCOUNTER → 2023-04-30 15:26 | Outpatient (BNVA) | payer OTHER, SELFPAY | PROVIDERS: PCP Internal Medicine; Visit Provider Surgery ==

== ENCOUNTER 2023-06-08 18:33 | Emergency (ER) | payer OTHER, SELFPAY ==
[2023-06-08 19:36] VITALS: BP 149/92; PULSE 111; RESP 18; TEMP 36.3; O2SAT 98; BMI 29.1
[2023-06-08 20:00] LABS: MANUAL DIFF FLAG NO
[2023-06-08 20:01] LABS: Basophils Percent Auto 0.3 % (0-2); Eosinophils Absolute Auto 0.2 X10*3/uL (0.0-0.4); Eosinophils Percent Auto 2.3 % (0-4); Hematocrit 37.3 % (37.0-47.0); Hemoglobin 12.3 g/dl (12.0-16.0); Imm Gran Abs Auto 0.01 X10*3/uL (0.00-0.03); Imm Gran Pct Auto 0.2 % (0.0-0.4); Lymphocytes Absolute Auto 1.3 X10*3/uL (1.2-4.9); Lymphocytes Percent Auto 19.7 % (20-40); Mean Corpuscular Hemoglobin 29.1 pg (27.0-33.0); Mean Corpuscular Volume 88.4 fL (80.0-98.0); Mean Platelet Volume 10.1 fL (9.4-12.3); Monocytes Absolute Auto 0.5 X10*3/uL (0.1-1.2); Neutrophils Absolute Auto 4.5 x10*3/uL (2.0-8.3); Neutrophils Percent Auto 69.5 % (45-73); Platelet Count 334 X10*3/uL (160-400); Red Blood Count 4.22 X10*6/uL (4.20-5.50); Red Cell Distribution Width 13.2 % (11.0-16.0); White Blood Count 6.5 X10*3/uL (4.8-10.8)
[2023-06-08 20:22] LABS: Alanine Aminotransferase 15 U/L (0-31); Albumin Level 4.2 g/dL (3.5-5.0); Alkaline Phosphatase 63 U/L (39-117); Anion Gap 11 (12-20); Aspartate Amino Transferase 17 U/L (5-31); Bilirubin Total 0.4 mg/dL (0.0-1.0); Blood Urea Nitrogen 10 mg/dL (9-16); Carbon Dioxide 24 mmol/L (22-29); Chloride 107 mmol/L (96-108); Creatinine Clr Calc Pharmacy 74.2; Estimated Glomerular Filt Rate > 60; Glucose Random 118 mg/dL (60-115); Lipase 21 U/L (8-78); Potassium 3.7 mmol/L (3.3-5.1); Sodium 138 mmol/L (135-145); Total Protein 7.2 g/dL (6.5-8.0)
--- NOTE | 2023-06-08 21:04 | ED.NAVMDI ---
HPI - Nausea/Vomiting/Diarrhea General Chief complaint: Nausea/Vomiting/Diarrhea Stated complaint: Nausea/Dizziness Time Seen by Provider: 06/08/23 20:57 Source: patient and old records reviewed Mode of arrival: ambulatory Limitations: no limitations History of Present Illness HPI Narrative: 52 yo female with PMH of asthma, vertigo, RUQ with negative US, chronic fatigue here with c/o waking up this AM with dizziness turning the head to the right with associated n/v. She threw up the meclizine she tried to take. She has no headaches, trauma, URI symptoms. She feels worse with movements. She has intermittent recent chronic abdominal pain that was triggered by this. The patient denies numbness, weakness, neck pain, states this feels like her vertigo. MD elicited complaint: nausea, vomiting and other (dizziness) Pertinent past history: other (vertigo) Onset (ago): hour(s) (since waking this AM) Description of vomiting: food contents and watery Associated nausea: Yes Associated abdominal pain: Yes Location of pain: RUQ Pain consistency: intermittent Severity: mild Quality: aching Exacerbating factors: none Relieving factors: none Context: other (hx of similar episodes) Associated symptoms: other (dizziness worse with looking to right or moving) Treatment prior to arrival: other (took motrin and meclizine) Related Data Previous Rx's Medication Instructions Recorded cholecalciferol (vitamin D3) 25 25 mcg PO DAILY 90 days #90 caps 04/24/22 mcg (1,000 unit) capsule lisinopril 10 mg tablet 10 mg PO DAILY #90 tabs 02/22/23 meclizine 25 mg tablet 25 mg PO TID PRN dizziness 30 days 02/22/23 #90 tabs Ventolin HFA 90 mcg/actuation 2 puff inhalation Q6H PRN 04/25/23 aerosol inhaler (albuterol sulfate) shortness of breath or wheezing 30 days #8 grams cyclobenzaprine 5 mg tablet 5 mg PO TID PRN Muscle Pain 30 04/25/23 days #90 tabs ondansetron 4 mg disintegrating 4 mg PO Q8H PRN nausea and 06/08/23 tablet vomiting #20 tabs Allergies Allergy/AdvReac Type Severity Reaction Status Date / Time apple AdvReac Severe Hives Verified 04/30/23 15:38 oranges Allergy Unknown rash Uncoded 04/30/23 15:38 penicillin Allergy Unknown rash Uncoded 04/30/23 15:38 Review of Systems Review of Systems: Constitutional : No Fever, No Chills, No Fatigue ENT/Mouth : No sore throat, No Rhinorrhea Eyes: No Eye Pain, No Swelling, No Redness Cardiovascular : No Chest Pain, No SOB, No Dyspnea on Exertion Respiratory : No Cough, No Sputum Gastrointestinal : pos Nausea, pos Vomiting, No Diarrhea, pos abdominal Pain Genitourinary : No Dysuria, No Urinary Frequency, No Hematuria, Musculoskeletal : No joint pain, No Myalgias, No Joint Swelling Skin : No Skin Lesions, No rash Neuro : No Weakness, No Numbness, pos Dizziness, no Headache Psych : No Anxiety/Panic, No Depression Heme/Lymph: No Bruising, No Bleeding,No Lymphadenopathy Endocrine : No Polyuria, No Polydipsia All other systems reviewed and are negative Gastrointestinal: Gastrointestinal: Reports nausea PMFSH Past Medical History Attestation statement: The following information was validated with the patient. Source: old records reviewed Medical History Leukopenia Chronic fatigue Vertigo Scoliosis Mild persistent asthma Surgical History History of tubal ligation H/O: hysterectomy Family History Family History Mother Diabetes Stroke Heart attack Father Heart attack Sister Breast cancer, Onset Age: 56 Sister Brain cancer Skin cancer Brother Prostate cancer Social History Social History Household Members: Spouse Housing: House Are you a primary day care director to a significant other at home: Yes (sister) Do you presently have visiting nurse or other home services: No Alcohol intake: current Alcohol intake frequency: a few times a week Alcohol type: wine Patient Tobacco Use Status: Never used Tobacco Smoked in Last 30 Days: No e-Cigarette/Vaping Use: Never Used Second Hand Smoke Exposure: No Use of substances other than those prescribed or required for medical reasons: No Advance Directives: No Advance Directives Information Provided: No Patient : No service: No Current occupational status: employed 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 Oriented X3. No acute distress. Eyes: Pupils equal, round and reactive to light. ENT: Pharynx normal. TMs normal bilaterally Neck: Normal inspection. Neck supple. CVS: Normal heart rate and rhythm. Pulses normal. Respiratory: No respiratory distress. Breath sounds normal. Abdomen: Soft and nontender. Skin: Skin warm and dry. Normal skin color. Normal skin turgor. Extremities: No lower extremity edema. No calf ttp Neuro: Oriented X 3. No motor deficit. No sensory deficit. no drift, has nystagmus with turning head to the right Medications Administered Discontinued Medications Generic Name Dose Route Start Last Admin Trade Name Freq PRN Reason Stop Dose Admin Sodium Chloride 1,000 mls @ 999 mls/hr 06/08/23 21:30 06/08/23 21:37 Ns IVCONT 06/08/23 22:30 999 mls/hr .Q1H1M SHE Administration Lorazepam 1 mg 06/08/23 21:19 06/08/23 21:46 Lorazepam 2 Mg/Ml Vial IVPUSH 06/08/23 21:20 1 mg STAT STA Administration Meclizine HCl 25 mg 06/08/23 21:19 06/08/23 21:37 Meclizine Hcl 25 Mg Tablet PO 06/08/23 21:20 25 mg ONCE ONE Administration Ondansetron HCl 4 mg 06/08/23 21:19 06/08/23 21:37 Ondansetron Hcl 4 Mg/2 Ml Vial IVPUSH 06/08/23 21:20 4 mg ONCE ONE Administration Medical Decision Making Medical Decision Making [facility] Narrative: 52 yo female with PMH of asthma, vertigo, RUQ with negative US, chronic fatigue here with dizziness with moving and turning to the right typical of her vertigo she has no other neurologic symptoms such as numbness, weakness, vision changes - no trauma, neck pain, URI or any other symptoms. I have ordered labs, EKG, IVF and ativan/meclizine. Her chronic abdominal pain has been worked up will get labs. I do not think this is posterior stroke she has no other deficits and has had this before in the past and is typical of her vertigo. Differential Diagnosis Differential Diagnoses: The differential diagnosis associated with the presentation includes dizziness, vertigo, chronic abdominal pain, IBS Admission/Observation Consideration of admission/observation: Escalation of care including admission/observation considered up and walking feels better stable for DC Lab Data MDM Lab Attestation statement: I reviewed the patient's lab results. 06/08/23 19:54 06/08/23 19:54 Labs: Lab Results 06/08/23 Range/Units 19:54 WBC 6.5 (4.8-10.8) X10*3/uL RBC 4.22 (4.20-5.50) X10*6/uL Hgb 12.3 (12.0-16.0) g/dl Hct 37.3 (37.0-47.0) % MCV 88.4 (80.0-98.0) fL MCH 29.1 (27.0-33.0) pg MCHC 33.0 (31.0-35.0) g/dl RDW 13.2 (11.0-16.0) % Plt Count 334 (160-400) X10*3/uL MPV 10.1 (9.4-12.3) fL Immature Gran % (Auto) 0.2 (0.0-0.4) % Neut % (Auto) 69.5 (45-73) % Lymph % (Auto) 19.7 L (20-40) % [place] % (Auto) 8.0 (2-11) % Eos % (Auto) 2.3 (0-4) % Baso % (Auto) 0.3 (0-2) % Lymph # (Auto) 1.3 (1.2-4.9) X10*3/uL [place] # (Auto) 0.5 (0.1-1.2) X10*3/uL Eos # (Auto) 0.2 (0.0-0.4) X10*3/uL Baso # (Auto) 0.0 (0.0-0.2) X10*3/uL Abs Immat Gran (auto) 0.01 (0.00-0.03) X10*3/uL Absolute Neuts (auto) 4.5 (2.0-8.3) x10*3/uL Absolute Nucleated RBC 0.000 (0.0-0.012) X10*3/uL Nucleated RBC % (auto) 0.0 (0.0-0.2) /100WBC Sodium 138 (135-145) mmol/L Potassium 3.7 (3.3-5.1) mmol/L Chloride 107 (96-108) mmol/L Carbon Dioxide 24 (22-29) mmol/L Anion Gap 11 L (12-20) BUN 10 (9-16) mg/dL Creatinine 0.81 (0.5-1.4) mg/dL Estim Creat Clear Calc 74.2 Estimated GFR > 60 Random Glucose 118 H (60-115) mg/dL Calcium 10.0 D (8.4-10.2) mg/dL Total Bilirubin 0.4 (0.0-1.0) mg/dL AST 17 (5-31) U/L ALT 15 (0-31) U/L Alkaline Phosphatase 63 (39-117) U/L Total Protein 7.2 (6.5-8.0) g/dL Albumin 4.2 (3.5-5.0) g/dL Lipase 21 (8-78) U/L Independent Interpretation I performed an independent interpretation of an: EKG Interpretation: Rate: 58 Rhythm: sinus bradycardia [place]: normal Normal P waves. Normal IFEANYI. Normal QRS complex. ST T wave : no MIREYA, normal qTC: normal prior studies: no acute ischemia The study has been interpreted contemporaneously by me. . Independent Historian Clinical information obtained from an independent historian. History obtained from or confirmed by: Friend External Record Review External record reviewed: Inpatient record Tests considered The following testing was considered but not selected: CT head - but doubt posterior stroke not indicated Prescription Management I considered prescription management with: Other (zofran) Discharge Plan Discharge Clinical Impression: Vertigo Patient Disposition: Home, Self-Care Instructions: Vertigo (ED) Additional Instructions: take your meclizine - physical therapy can help you can contact next week if symptoms persist. return for numbness, weakness, chest pain, severe headaches, vision loss or any other concerns. Prescriptions: New ondansetron 4 mg tablet,disintegrating 4 mg PO Q8H PRN (Reason: nausea and vomiting) Qty: 20 0RF No Action cholecalciferol (vitamin D3) 25 mcg (1,000 unit) capsule 25 mcg PO DAILY 90 Days Qty: 90 1RF meclizine 25 mg tablet 25 mg PO TID PRN (Reason: dizziness) 30 Days Qty: 90 2RF lisinopril 10 mg tablet 10 mg PO DAILY Qty: 90 1RF albuterol sulfate [Ventolin HFA] 90 mcg/actuation HFA aerosol inhaler 2 puff inhalation Q6H PRN (Reason: shortness of breath or wheezing) 30 Days Qty: 8 1RF cyclobenzaprine 5 mg tablet 5 mg PO TID PRN (Reason: Muscle Pain) 30 Days Qty: 90 0RF Stand Alone Forms: Work/School Release Interventions: ED Discharge Assessment Last Done: 06/09/23 00:20 Discharge Date/Time: 06/09/23 00:22
[2023-06-08 21:09] VITALS: BP 146/76; PULSE 63; O2SAT 100
--- NOTE | 2023-06-08 21:19 | ECG_ITS ---
Test Reason : WEAKNESS Blood Pressure : / mmHG Vent. Rate : 058 BPM Atrial Rate : 058 BPM P-R Int : 120 ms QRS Dur : 098 ms QT Int : 440 ms P-R-T Axes : 004 001 029 degrees QTc Int : 431 ms Sinus bradycardia Otherwise normal ECG When compared with ECG of 20-FEB-2023 07:30, Heart rate has decreased Referred By: Monica Holbrook Electronically Signed By:KEVON IVERSON
[2023-06-08] MEDS: 0.9 % Sodium Chloride 1,000 ML 999 ML IVCONT (21:37)
[2023-06-08] MEDS: ondansetron HCL 4 MG/2 ML VIAL IVPUSH (21:37)
[2023-06-08] MEDS: Meclizine HCl 25 MG TABLET PO (21:37)
[2023-06-08] MEDS: LORazepam 2 MG/ML VIAL 1 MG IVPUSH (21:46)
[2023-06-08 22:05] VITALS: BP 141/85; PULSE 84
[2023-06-08 23:38] VITALS: BP 141/82; PULSE 53; RESP 13; O2SAT 98
--- NOTE | 2023-06-09 00:18 | PC.NURSE ---
pt spouse at bedside. iv removed at discharge. pt calm and cooperative. pt ambulatory at discharge. pt provided with discharge packet. pt verbalized understanding of discharge plan
== END 2023-06-09 00:22 | disposition home or self-care (01) ==
PROVIDERS: Emergency Provider Emergency Medicine; PCP Internal Medicine
DX: R42 Dizziness and giddiness (principal); R11.2 Nausea with vomiting, unspecified; R53.1 Weakness; R10.11 Right upper quadrant pain; I10 Essential (primary) hypertension; Z79.899 Other long term (current) drug therapy
CPT/HCPCS: 36415; 80053; 83690; 85025; 93005; 96374; 96375; 99284; J2060; J2405

== ENCOUNTER 2023-06-17 14:00 | Outpatient (RCR) | payer OTHER, SELFPAY ==
[2023-06-11 15:08] VITALS: BP 142/78; PULSE 64
--- NOTE | 2023-06-11 16:32 | MHC.PT.EP ---
[facility] [place] Office [place] [facility] [place] [facility] [address] [phone] F: [phone] F: [phone] F: [phone] F: [phone] Physical Therapy Plan of Care Date of Evaluation: 06/11/23 Date of Surgery: n/a Diagnosis: Vertigo Assessment: Pt is a pleasant 52yo F who presents to PT with onset of dizziness since Saturday. Upon assessment, pt tested negative for benign paraoxsymal positional vertigo (BPPV) in B posterior canals and B horizontal canals. She was found to have balance impairments with static balance assessment and mild balance impairments with dynamic gait index assessment. She is a good candidate for skilled PT for vestibular rehabilitation in order to address current impairments to facilitate return to PLOF. She is recommended to be seen 2x/week for 3 weeks and will be reassessed at that time. Frequency and Duration: The patient will be seen 2x/week for 3 weeks Short Term Goals: Pt will be I with HEP to promote self management of symptoms Pt will successfully perform sit to stand transfer from varying surfaces with minimal dizziness Pt will demonstrate ability to balance on airex with eyes closed > 30 seconds Director Erp Goals: Pt will successfully ambulate on even and uneven surfaces without AD without dizziness or instability to assist with community ambulation Pt will ascend/descend 1 flight of stairs with reciprocal pattern without railings and without dizziness Pt will demonstrate improvements in function as evidenced by statistically significant improvement in Dynamic Gait Instability Treatment Plan: Modalities to reduce pain, spasms and effusion. Manual therapy to restore motion and function. Therapeutic exercise to improve strength and flexibility. Neuromuscular re-education for posture and balance. Therapeutic activities to return to functional activities of daily living. Electronically signed by: Estrella Burnett, PT, DPT Please sign and return to therapist. Thank you for your referral.
--- NOTE | 2023-07-18 11:42 | MHC.PT.DC ---
[facility] [place] Office [place] Office [place] Office [address] Cheryl Freeman [address] [phone] F: [phone] F: [phone] F: [phone] F: [phone] Physical Therapy Discharge Report Diagnosis: Vertigo Date of Surgery: n/a Date of Evaluation: 06/11/23 Date of Discharge: 07/18/23 Treatments to Date: 2 Cancellations to Date: No Shows to Date: Discharge Status: Improved Function Discharge Summary: Pt was seen for PT from 06/11/23-06/17/23. Upon assessment, she was negative for BPPV. Her symptoms were likely related to recent virus and decreased po intake. When she returned to follow up appointment her symptoms were mostly resolved. Her chart was kept open for 30 days incase she had exacerbation of symptoms. Pt is being D/C from PT as she has not called to schedule in >30 days Electronically signed by: Estrella Burnett, PT, DPT Please sign and return to therapist. Thank you for your referral.
== END 2023-07-18 11:42 | disposition home or self-care (01) ==
LOC: HO.PT 14:00
PROVIDERS: PCP Internal Medicine; Visit Provider Internal Medicine Medical Oncology
DX: R42 Dizziness and giddiness (principal)
CPT/HCPCS: 97112; 97162; 97530

== ENCOUNTER 2023-06-25 15:56 | Outpatient (REF) | payer OTHER, SELFPAY ==
--- NOTE | ~2023-06-25 | MR_ITS ---
EXAMINATION: MR BREAST WITHOUT AND WITH CONTRAST, BILATERAL CLINICAL INFORMATION: High-risk screening; family history of breast cancer in sister and grandmother. Dense breasts. Lifetime risk reported at 21%. COMPARISON: 05/07/2022. 11/02/2016. Mammography from 11/12/2022, diagnostic exam for palpable right lump upper outer quadrant. TECHNIQUE: Imaging was performed with a dedicated breast coil. Prior to the administration of contrast, bilateral axial T1 and bilateral axial T2 weighted sequences were obtained. After the uneventful administration of?6 mL of Gadavist, dynamic contrast-enhanced VIBRANT series through the breasts in the axial plane were performed. Subtracted images were performed and reviewed. A delayed sagittal sequence through both breasts was acquired. Additionally, CAD post-processing, including maximum intensity projections, 3-D reconstructions and kinetic analysis, were performed an independent workstation and reviewed by the interpreting radiologist is a portion of this exam. FINDINGS: The breasts are comprised of heterogeneous, dense fibroglandular parenchyma. The tissue undergoes mild background enhancement. LEFT BREAST: A persistent linear non-mass enhancement at 12 o'clock (series 100 image 35/108) unchanged compared with prior. No suspicious mass or non-mass enhancement. Multiple small scattered foci of non-mass enhancement are also unchanged. No architectural distortion, skin thickening or nipple retraction. RIGHT BREAST: A 5 mm mass in the right upper inner quadrant (series 100 image 44) is unchanged. Again intramammary node favored. An 8 mm mass at 10 o'clock (series 100 image 49) is decreased in size and reniform, again favoring an intramammary node. A 10 mm mass at 9 o'clock (series 100 image 55) 7 cm from the nipple has decreased in size. Medial skin thickening and enhancement is again noted. Again, clinical correlation is required. This is less likely to represent artifact given differences in positioning between the 2 exams and should physical examination reveal a dermal lesion, consider punch biopsy. No architectural distortion. No nipple retraction. Medial skin enhancement has improved. There is no suspicious internal mammary chain or axillary adenopathy. Limited views of the chest and abdomen are unremarkable. MR/MR breast BI wo/w con IMPRESSION: 1. No new suspicious mass or non-mass enhancement. 2. Stable or resolving findings as above. 3. Persistent medial skin thickening of the right breast. Clinical correlation required. ASSESSMENT: LEFT BREAST: BI-RADS 2, benign findings. RIGHT BREAST: BI-RADS 2, benign findings. RECOMMENDATIONS: Bilateral breast MRI in one year's time.
[2023-06-25] MEDS: gadobutroL 7.5 ML VIAL IVPUSH (17:02)
== END 2023-06-25 15:57 | disposition home or self-care (01) ==
LOC: HO.MRI 15:56
PROVIDERS: PCP Internal Medicine; Visit Provider Surgery
DX: Z91.89 Other specified personal risk factors, not elsewhere classified (principal); Z80.3 Family history of malignant neoplasm of breast
CPT/HCPCS: 77049; A9585

== ENCOUNTER 2023-07-01 08:52 | Outpatient (REF) | payer OTHER, SELFPAY ==
--- NOTE | ~2023-07-01 | XR_ITS ---
EXAMINATION: XR CHEST CLINICAL INFORMATION: Chest 09/26/2021 COMPARISON: None available. TECHNIQUE: 2 views of the chest were obtained. FINDINGS: No significant abnormality is noted involving the heart, lungs, mediastinum, bony thorax or soft tissues. XR/XR chest 2V IMPRESSION: No acute cardiopulmonary disease.
== END 2023-07-01 08:53 | disposition home or self-care (01) ==
LOC: HO.XRAY 08:52
PROVIDERS: PCP Internal Medicine; Visit Provider Internal Medicine Medical Oncology
DX: J45.30 Mild persistent asthma, uncomplicated (principal); R05.9 Cough, unspecified; R06.02 Shortness of breath
CPT/HCPCS: 71046

== ENCOUNTER 2023-09-24 17:06 | Outpatient (AMB) | payer OTHER, SELFPAY ==
--- NOTE | 2023-09-24 17:06 | MHC.PC.OV ---
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 Accompanied by: Self / Same As Patient Allergies apple Adverse Reaction (Severe, Verified 09/24/23 17:07) Hives oranges Allergy (Unknown, Uncoded 09/24/23 17:07) rash penicillin Allergy (Unknown, Uncoded 09/24/23 17:07) rash Medication List - Last Reconciled 09/24/23 by Jennifer Gonzalez MD albuterol sulfate 2.5 mg (3 mL) inhalation Q4-6H PRN 30 days azithromycin (Zithromax Z-Capo) For 250 mg dose pack: take 500 mg today (day 1), then 250 mg for 4 days (days 2-5) cholecalciferol (vitamin D3) 25 mcg PO DAILY 90 days cyclobenzaprine 5 mg PO TID PRN 30 days lisinopril 10 mg PO DAILY meclizine 25 mg PO TID PRN 30 days nebulizers (AeroEclipse II Nebulizer) As directed ondansetron 4 mg PO Q8H PRN Ventolin HFA 90 mcg/actuation (albuterol sulfate) 2 puffs inhalation Q6H PRN 30 days NS Tobacco use date assessed: 03/08/23 Dental Screening Dental Screen Date: 09/24/23 Did you have a dental visit in the last 12 months?: Yes Did you have a dental problem in the last 6 months where you did not have access to dental care?: No Was dental information given to patient?: Patient has dentist HPI HPI Comments History of Present Illness Details This is a 53-year-old female with hypertension, mild asthma and low vitamin-D that has tele health visit through video after be positive with COVID-19 and completing Paxlovid last night. She was feeling short of breath and had fever for the 1st 2 days. Tested positive SaturdaySeptember 20 and started treatment. Blood pressure has been well control. Asthma stable with rescue inhalers. On vitamin-D supplements for her low vitamin-D. Some mild nasal congestion still but no shortness breath, fatigue or tiredness. Ready to go back to work tomorrow. [facility] Medical History (Updated 09/24/23 @ 17:37 by Jennifer Gonzalez MD) Leukopenia Chronic fatigue Vertigo Scoliosis Mild persistent asthma Surgical History History of tubal ligation H/O: hysterectomy Family History Mother Diabetes Stroke Heart attack Father Heart attack Sister Breast cancer, Onset Age: 56 Sister Brain cancer Skin cancer Brother Prostate cancer Social History Household Members: Spouse Housing: House Are you a primary tire care manager to a significant other at home: Yes (sister) Do you presently have visiting nurse or other home services: No Alcohol intake: current Alcohol intake frequency: a few times a week Alcohol type: wine Patient Tobacco Use Status: Never used Tobacco e-Cigarette/Vaping Use: Never Used Second Hand Smoke Exposure: No service: No Current occupational status: employed 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 Lamont Hirsch, Kathi Sanders, Dale Crenshaw and colleagues, with an educational antoine from [employer]. Review of Systems Const All systems reviewed & are unremarkable except as noted in HPI and below Eyes Reports no additional complaints, Denies change in vision and Denies other visual disturbances Card Denies chest pain at rest, Denies chest pain with activity, Denies edema, Denies irregular heart rhythm, Denies claudication, Denies dyspnea, Denies dyspnea on exertion, Denies orthopnea, Denies paroxysmal nocturnal dyspnea and Denies slow heart rate Resp Denies cough, Denies dyspnea and Denies dyspnea on exertion GI Denies abdominal pain, Denies change in bowel habits, Denies excessive flatus, Denies nausea and Denies vomiting Denies urinary incontinence, Denies urinary hesitancy and Denies urinary urgency Musc Denies abnormal gait, Denies atrophy, Denies deformity and Denies limited range of motion Skin/Breast Denies bleeding lesions, Denies changing lesions and Denies rash Neuro Denies abnormal gait, Denies behavioral changes, Denies confusion and Denies lack of coordination Psych Denies behavioral changes and Denies confusion Physical exam (Primary Care) Tobacco/Smoking Status: Tobacco use Status Tobacco use date assessed 03/08/23 04/25/23 13:02 Patient Tobacco Use Status Never used Tobacco 04/25/23 13:19 e-Cigarette/Vaping Use Never Used 04/25/23 13:19 Thrive Assessment: Date of Thrive Assessment Date Thrive assessed 03/08/23 04/25/23 13:02 Const General: No confusion Orientation/consciousness: patient oriented x3 and No confusion HENMT Head: Yes normal to inspection, Yes normocephalic and Yes atraumatic Ears: external ears normal Eyes General: appearance normal, both eyes and all related structures Eyelids: Yes eyelids normal Conjunctivae: conjunctivae normal Neck Neck: Yes normal visual inspection and Yes supple Neuro General: patient oriented x3 and No confusion Extrem General: Yes full ROM Telehealth Telehealth Location of provider rendering services: practice address Location of patient: address on file Patient Identification confirmed using: Name, : Yes Telehealth method: video Patient verbally consented to treatment: Yes Patient verbally consented to billing insurance company: Yes Patient informed of any privacy concerns related to visit: Yes Minutes spent on Phone/Video with Pt.: 15 Assessment and Plan Assessment & Plan (1) COVID-19: Code(s): U07.1 - COVID-19 Plan: Paxlovid completed. Feels markedly improved. Able to return to work tomorrow. (2) Essential hypertension: Code(s): I10 - Essential (primary) hypertension Plan: Continue lisinopril. Blood pressure goal is equal or less than 130/80. (3) Mild asthma: Code(s): J45.909 - Unspecified asthma, uncomplicated Plan: Use rescue inhaler as needed. (4) Hypovitaminosis D: Code(s): E55.9 - Vitamin D deficiency, unspecified Plan: Continue vitamin-D supplements. Medications: Discontinued azithromycin (Zithromax Z-Capo) Discontinued Reason: Patient Completed Course For 250 mg dose pack: take 500 mg today (day 1), then 250 mg for 4 days (days 2-5) 5 tabs 0RF Coding Level of Care Code Tele Est Pt Level 4 (82820) Diagnoses COVID-19 U07.1 Essential hypertension I10 Mild asthma J45.909 Hypovitaminosis D E55.9 Time Spent (min) 15
== END 2023-09-24 17:32 | disposition home or self-care (01) ==
LOC: HO.HMGH 17:06
PROVIDERS: PCP Internal Medicine; Visit Provider Internal Medicine
DX: U07.1 COVID-19 (principal); I10 Essential (primary) hypertension; J45.909 Unspecified asthma, uncomplicated; E55.9 Vitamin D deficiency, unspecified
CPT/HCPCS: 99214

== ENCOUNTER 2023-10-28 14:36 | Outpatient (AMB) | payer OTHER, SELFPAY ==
[2023-10-28 14:42] VITALS: BP 126/82; BMI 28.5
--- NOTE | 2023-10-28 14:42 | MHC.PC.OV ---
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: No Accompanied by: Self / Same As Patient Allergies apple Adverse Reaction (Severe, Verified 10/28/23 14:55) Hives oranges Allergy (Unknown, Uncoded 10/28/23 14:55) rash penicillin Allergy (Unknown, Uncoded 10/28/23 14:55) rash Medication List - Last Reconciled 10/28/23 by Jennifer Gonzalez MD albuterol sulfate 2.5 mg (3 mL) inhalation Q4-6H PRN 30 days cholecalciferol (vitamin D3) 25 mcg PO DAILY 90 days cyclobenzaprine 5 mg PO TID PRN 30 days epinephrine (EpiPen 2-Capo) 0.3 mg IM Q4H PRN lisinopril 10 mg PO DAILY meclizine 25 mg PO TID PRN 30 days nebulizers (AeroEclipse II Nebulizer) As directed Ventolin HFA 90 mcg/actuation (albuterol sulfate) 2 puffs inhalation Q6H PRN 30 days NS Tobacco use date assessed: 10/28/23 Dental Screening Dental Screen Date: 10/28/23 Did you have a dental visit in the last 12 months?: Yes Did you have a dental problem in the last 6 months where you did not have access to dental care?: No Was dental information given to patient?: Patient has dentist HPI HPI Comments History of Present Illness Details This is a 53-year-old female with hypertension, mild asthma, vertigo and low vitamin-D that comes today for follow-up on her conditions. Blood pressure stable. Asthma well control and use rescue inhaler once a month. Has vertigo occasionally and more when turning left and was advised to use meclizine as needed and do vestibular exercises at home. On vitamin-D supplements for low vitamin-D. No chest pain or shortness of breath. [facility] Medical History (Updated 09/24/23 @ 17:37 by Jennifer Gonzalez MD) Leukopenia Chronic fatigue Vertigo Scoliosis Mild persistent asthma Surgical History History of tubal ligation H/O: hysterectomy Family History Mother Diabetes Stroke Heart attack Father Heart attack Sister Breast cancer, Onset Age: 56 Sister Brain cancer Skin cancer Brother Prostate cancer Social History Household Members: Spouse Housing: House Are you a primary hospice care consultant to a significant other at home: Yes (sister) Do you presently have visiting nurse or other home services: No Alcohol intake: current Alcohol intake frequency: a few times a week Alcohol type: wine Patient Tobacco Use Status: Never used Tobacco e-Cigarette/Vaping Use: Never Used Second Hand Smoke Exposure: No service: No Current occupational status: employed 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 1. Little interest or pleasure in doing things: not at all 2. Feeling down, depressed, or hopeless: not at all 3. Trouble falling or staying asleep, or sleeping too much: not at all 4. Feeling tired or having little energy: not at all 5. Poor appetite or overeating: not at all 6. Feeling bad about yourself - or that you are a failure or have let yourself or your family down: not at all 7. Trouble concentrating on things, such as reading the newspaper or watching television: not at all 8. Moving or speaking so slowly that other people could have noticed. Or the opposite - being so fidgety or restless that you have been moving around a lot more than usual: not at all 9. Thoughts that you would be better off or of hurting yourself in some way: not at all Total score: 0 Depression Screening Interpretation: Negative Depression Screening Done: Yes 84412 - PHQ-9 Billing: Yes Source: Developed by Drs. Lamont Hirsch, Kathi Sanders, Dale Crenshaw and colleagues, with an educational antoine from [employer]. Thrive Questionnaire Date Thrive assessed: 10/28/23 I am a: Patient What is your living situation today?: I have a steady place to live Within the past 12 months, did the food you bought not last and you didn't have the money to get more?: Never true Within the past 12 months, did you worry whether your food would run out before you got money to buy more?: Never true Do you have trouble paying for medicines?: No Do you have trouble getting transportation to medical appointments?: No Do you have trouble paying your heating and electricity bill?: No Do you have trouble taking care of your child, family member or friend?: No Do you have trouble with day-to-day activities such as bathing, preparing meals, shopping, managing finances, etc.?: No Are you currently unemployed and looking for a job?: No Are you interested in more education?: No Please select the resources that you would like help with: None Currently or been in a relationship where the following occur: no concerns reported THRIVE Score: 0 AUDIT C Alcohol Use Questionnaire (AUDIT-C) 1. How often do you have a drink containing alcohol?: Monthly or less 2. How many drinks containing alcohol do you have on a typical day when you are drinking?: 1 or 2 3. How often do you have six or more drinks on one occasion?: Never Total Score: 1 Score Reviewed/Action Taken: No LAYLA-7 AMB Questionnaire LAYLA-7 Date LAYLA - 7 assessed: 10/28/23 Feeling nervous, anxious, or on edge: 1 = Several days Not being able to stop or control worryin = Not at all Worrying too much about different things: 0 = Not at all Trouble relaxin = Not at all Being so restless that it is hard to sit still: 0 = Not at all Becoming easily annoyed or irritable: 0 = Not at all Feeling afraid as if something awful might happen: 0 = Not at all Total LAYLA-7 score (0-4 normal; 5-9 mild; 10-14 moderate; 15-21 severe): 1 Source: Developed by Drs. Lamont Hirsch, Kathi Sanders, Dale Crenshaw and colleagues, with an educational antoine from [employer]. LAYLA-7 Assessment Billing LAYLA-7 Assessment Tool: LAYLA-7 Assessment 71841 Review of Systems Const All systems reviewed & are unremarkable except as noted in HPI and below Eyes Reports no additional complaints, Denies change in vision and Denies other visual disturbances Card Denies chest pain at rest, Denies chest pain with activity, Denies edema, Denies irregular heart rhythm, Denies claudication, Denies dyspnea, Denies dyspnea on exertion, Denies orthopnea, Denies paroxysmal nocturnal dyspnea and Denies slow heart rate Resp Denies cough, Denies dyspnea and Denies dyspnea on exertion GI Denies abdominal pain, Denies change in bowel habits, Denies excessive flatus, Denies nausea and Denies vomiting Denies urinary incontinence, Denies urinary hesitancy and Denies urinary urgency Musc Denies abnormal gait, Denies atrophy, Denies deformity and Denies limited range of motion Skin/Breast Denies bleeding lesions, Denies changing lesions and Denies rash Neuro Denies abnormal gait, Denies behavioral changes and Denies lack of coordination Psych Denies behavioral changes Physical exam (Primary Care) Vital Signs: Last Vital Signs BP 126/82 10/28/23 14:42 BMI result Body Mass Index 28.5 Tobacco/Smoking Status: Tobacco use Status Tobacco use date assessed 10/28/23 10/28/23 14:50 Patient Tobacco Use Status Never used Tobacco 10/28/23 14:50 e-Cigarette/Vaping Use Never Used 10/28/23 14:50 PHQ-9: PHQ-9 Score PHQ-9: Total score 0 10/28/23 14:57 Depression Screening Interpretation: Negative Thrive Assessment: Date of Thrive Assessment Date Thrive assessed 10/28/23 10/28/23 14:50 Currently or been in a relationship where the following occur: no concerns reported Eyes General: appearance normal, both eyes and all related structures Eyelids: Yes eyelids normal Conjunctivae: conjunctivae normal Neck Neck: Yes normal visual inspection and Yes supple Resp Effort & Inspection: normal respiratory effort Auscultation: clear to auscultation bilaterally Cardio Jugular venous distension: no JVD Rate: regular rate Rhythm: regular rhythm Heart sounds: S1 normal heart sound present and S2 normal heart sound present Extrem General: Yes full ROM Psych Appearance: grossly normal Assessment and Plan Assessment & Plan (1) Essential hypertension: Code(s): I10 - Essential (primary) hypertension Plan: Continue lisinopril. Blood pressure goal is equal or less than 130/80. (2) Hypovitaminosis D: Code(s): E55.9 - Vitamin D deficiency, unspecified Plan: Continue vitamin-D supplements. (3) Mild asthma: Code(s): J45.909 - Unspecified asthma, uncomplicated Plan: Use rescue inhaler as needed. (4) Vertigo: Code(s): R42 - Dizziness and giddiness Plan: Use meclizine as needed. Orders: Orders Vitamin D 25-OH Total 6 Months E55.9 - Vitamin D deficiency, unspecified Comprehensive [place]. Panel Fast 6 Months I10 - Essential (primary) hypertension Lipid Panel 6 Months E78.5 - Hyperlipidemia, unspecified, I10 - Essential (primary) hypertension Complete Blood Count Auto Diff 6 Months J45.909 - Unspecified asthma, uncomplicated Medications: New epinephrine (EpiPen 2-Capo) 0.3 mg (0.3 mL) IM Q4H 30 days PRN 2 ea 0RF anaphylaxis Refilled lisinopril 10 mg PO DAILY 90 tabs 1RF meclizine 25 mg PO TID 30 days PRN 90 tabs 2RF dizziness R42 - Dizziness and giddiness cyclobenzaprine 5 mg PO TID 30 days PRN 90 tabs 0RF Muscle Pain cholecalciferol (vitamin D3) 25 mcg PO DAILY 90 days 90 caps 1RF Coding Level of Care Code Est Pt Level 4 (65554) Diagnoses Essential hypertension I10 Hypovitaminosis D E55.9 Mild asthma J45.909 Vertigo R42 Additional Codes LAYLA-7 Assessment Billing - LAYLA-7 Assessment Tool: LAYLA-7 Assessment 76322 ([id number]) Time Spent (min) 23
== END 2023-10-28 15:03 | disposition home or self-care (01) ==
PROVIDERS: PCP Internal Medicine; Visit Provider Internal Medicine
DX: I10 Essential (primary) hypertension (principal); E55.9 Vitamin D deficiency, unspecified; J45.909 Unspecified asthma, uncomplicated; R42 Dizziness and giddiness
CPT/HCPCS: 99214

== ENCOUNTER → 2023-10-29 07:52 | Outpatient (BNVA) | payer SELFPAY | PROVIDERS: PCP Internal Medicine; Visit Provider Physician Assistant | DX: Z13.89 Encounter for screening for other disorder (principal) | CPT/HCPCS: 73030; 99204 ==

== ENCOUNTER 2023-10-31 13:52 | Outpatient (AMB) | payer OTHER, SELFPAY ==
--- NOTE | 2023-10-31 13:58 | A.OFFVIS_ITS ---
Intake Vital Signs 10/31/23 13:59 Height 5 ft 1 in Weight 151 lb BMI 28.5 Pulse 77 Pulse Source Pulse Oximeter Pulse Oximetry (%) 98 Oxygen Delivery Method Room Air Intake Visit Reasons: Asthma Laser Specialist Required: No Allergies apple Adverse Reaction (Severe, Verified 10/31/23 15:04) Hives oranges Allergy (Unknown, Uncoded 10/31/23 15:04) rash penicillin Allergy (Unknown, Uncoded 10/31/23 15:04) rash HPI HPI Comments History of Present Illness Details The patient is here for pulmonary evaluation. The patient is a 53 year woman with known history of mild intermittent asthma. Apparently she was in her usual state health until the fall 2022 when she started developing wo rsening respiratory symptoms. She has been requiring her rescue inhaler more often. She also has a nebulizer. The patient ultimately developed COVID-19 infection in August 2023. during that time she also required any inhaler more often having some shortness of breath. Now she is back to her baseline. The patient has not had any pulmonary function studies. She did have a chest x-ray back in the fallJune 2023 which I personally reviewed demonstrating no acute disease. The patient does carry an EpiPen. She has significant allergies to oranges. She has had allergy testing in the past also has some environmental allergies but not very significant and now during the season. Typically more during the spring due to pollen and grasses. Right now she is doing well. On examination the patient did have very mild systolic ejection murmur best heard at the right sternal border could be a simple flow murmur. The patient has not had an echocardiogram at this point she is doing clinically well. The patient will follow-up with primary care continue to be monitored. If the murmur still present would be reasonable to request an echocardiogram. [facility] Medical History Murmur Leukopenia Chronic fatigue Vertigo Scoliosis Mild persistent asthma Surgical History History of tubal ligation H/O: hysterectomy Family History Mother Diabetes Stroke Heart attack Father Heart attack Sister Breast cancer, Onset Age: 56 Sister Brain cancer Skin cancer Brother Prostate cancer Social History Household Members: Spouse Housing: House Are you a primary director critical care to a significant other at home: Yes (sister) Do you presently have visiting nurse or other home services: No Alcohol intake: current Alcohol intake frequency: a few times a week Alcohol type: wine Patient Tobacco Use Status: Never used Tobacco e-Cigarette/Vaping Use: Never Used Second Hand Smoke Exposure: No service: No Current occupational status: employed 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[employer] [place] Current occupational exposures/hazards: No Cognitive needs: No Hearing needs: No Vision needs: Yes Female Reproductive History Menstrual Age of Menarche: 14 Review of Systems Const All systems reviewed & are unremarkable except as noted in HPI and below Eyes Reports no additional complaints, Denies change in vision and Denies other visual disturbances Card Denies chest pain at rest, Denies chest pain with activity, Denies edema, Denies irregular heart rhythm, Denies claudication, Denies dyspnea, Denies dyspnea on exertion, Denies orthopnea, Denies paroxysmal nocturnal dyspnea and Denies slow heart rate Resp Denies cough, Denies dyspnea and Denies dyspnea on exertion GI Denies abdominal pain, Denies change in bowel habits, Denies excessive flatus, Denies nausea and Denies vomiting Denies urinary incontinence, Denies urinary hesitancy and Denies urinary urgency Musc Denies abnormal gait, Reports myalgias, Denies atrophy, Denies deformity and Denies limited range of motion Skin/Breast Denies bleeding lesions, Denies changing lesions and Denies rash Neuro Denies abnormal gait, Denies behavioral changes and Denies lack of coordination Psych Denies behavioral changes Physical Exam Vital Signs: Last Vital Signs Pulse 77 10/31/23 13:59 Pulse Ox 98 10/31/23 13:59 Oxygen Delivery Method Room Air 10/31/23 13:59 BMI result Body Mass Index 28.5 Const General: comfortable HEENT Head: Yes normocephalic Neck Neck: Yes supple Chest Chest palpation & inspection: normal inspection of the chest Resp Effort & Inspection: normal respiratory effort Auscultation: clear to auscultation bilaterally Cardio Heart sounds: S1 normal heart sound present, S2 normal heart sound present and Murmur heart sound present systolic early, II/ and at the right sternal border GI Palpation (GI): Soft to palpation Skin General skin exam: no rashes or lesions noted Extrem General: Yes no clubbing, cyanosis or edema Assessment & Plan Assessment & Plan (1) Mild asthma: Code(s): J45.909 - Unspecified asthma, uncomplicated Qualifiers: Asthma persistence: intermittent Asthma complication type: uncomplicated Qualified Code(s): J45.20 - Mild intermittent asthma, uncomplicated (2) Murmur: Code(s): R01.1 - Cardiac murmur, unspecified Plan SARABJIT as needed spirometry with the next visit consider repeat allergy testing Monitor systolic murmur, ECHO if persist F/U 6 months or sooner if symptoms arise Coding Level of Care Code New Pt Level 4 (96699) Diagnoses Mild intermittent asthma without complication J45.20 Asthma persistence: intermittent Asthma complication type: uncomplicated Murmur R01.1 Time Spent (min) 35
[2023-10-31 13:59] VITALS: PULSE 77; O2SAT 98; BMI 28.5
== END 2023-10-31 14:43 | disposition home or self-care (01) ==
PROVIDERS: PCP Internal Medicine; Visit Provider Hospitalist
DX: J45.20 Mild intermittent asthma, uncomplicated (principal); R01.1 Cardiac murmur, unspecified
CPT/HCPCS: 99204

== ENCOUNTER → 2023-10-31 13:52 | Outpatient (BNVA) | payer OTHER, SELFPAY | PROVIDERS: PCP Internal Medicine; Visit Provider Hospitalist ==

== ENCOUNTER 2023-10-31 14:31 | Outpatient (AMB) | payer OTHER, SELFPAY ==
--- NOTE | 2023-10-31 14:53 | A.OFFVIS_ITS ---
Intake Vital Signs 10/31/23 15:03 Height 5 ft 1 in Weight 154 lb BMI 29.1 BP 164/67 H Blood Pressure Location Lt brachial Position Sitting Pulse 79 Intake Visit Reasons: 6 mth breast exam Intake Note: Patient is seen in office for 6 month follow up visit, breast exam. Pt c/o:, still feels a lump on the right breast, denies any other concerns or changes mm sched:11/27/23 B MRI:06/24/23 Nurse Special Required: No Environmental Restoration Planner: Environmental Restoration Planner Present Accompanied by: Self / Same As Patient Allergies apple Adverse Reaction (Severe, Verified 10/31/23 15:04) Hives oranges Allergy (Unknown, Uncoded 10/31/23 15:04) rash penicillin Allergy (Unknown, Uncoded 10/31/23 15:04) rash Medication List - Last Reconciled 10/31/23 by Maulik Franco MD albuterol sulfate 2.5 mg (3 mL) inhalation Q4-6H PRN 30 days cholecalciferol (vitamin D3) 25 mcg PO DAILY 90 days cyclobenzaprine 5 mg PO TID PRN 30 days epinephrine (EpiPen 2-Capo) 0.3 mg (0.3 mL) IM Q4H PRN 30 days ibuprofen 800 mg PO TID lisinopril 10 mg PO DAILY meclizine 25 mg PO TID PRN 30 days nebulizers (AeroEclipse II Nebulizer) As directed Ventolin HFA 90 mcg/actuation (albuterol sulfate) 2 puffs inhalation Q6H PRN 30 days NS HPI HPI Comments History of Present Illness Details 53-year-old female patient with a strong family history of breast cancer including her sister who from from breast cancer, a maternal aunt diagnosed with breast cancer in her 50s, and a maternal cousin diagnosed with breast cancer in her 40s. She was identified as being at high risk for breast cancer due to her family history with a Tyrer-Cuzick remaining lifetime risk of breast cancer calculated at 20 1%. Breast MRI performed on 05/07/2020 revealed a 7 mm somewhat linear non mass enhancement in the 12 o'clock position, 7 cm from the nipple which was unchanged from the prior examination. In the 10 o'clock position, 10 cm from the nipple, an area of skin enhancement was i dentified. A similar finding was noted on the right breast and is attributed to positioning in the breast coil. Findings were considered benign (BI-RADS 2 bilaterally). Her most recent mammogram performed on 11/12/2022 revealed no mammographic evidence of malignancy (BI-RADS 1). She is scheduled for a follow- up mammogram on 11/27/2023. An MRI performed on 06/25/2023 revealed stable findings with no MR specific evidence of malignancy in either breast (BI-RADS 2 bilaterally). She is 2 para 2, did not breast feed her children. She underwent a hysterectomy without oophorectomy at the age of 38. She denies any new breast symptoms. [facility] Medical History Murmur Leukopenia Chronic fatigue Vertigo Scoliosis Mild persistent asthma Surgical History History of tubal ligation H/O: hysterectomy Family History Mother Diabetes Stroke Heart attack Father Heart attack Sister Breast cancer, Onset Age: 56 Sister Brain cancer Skin cancer Brother Prostate cancer Social History Household Members: Spouse Housing: House Are you a primary primary health care nurse to a significant other at home: Yes (sister) Do you presently have visiting nurse or other home services: No Alcohol intake: current Alcohol intake frequency: a few times a week Alcohol type: wine Patient Tobacco Use Status: Never used Tobacco e-Cigarette/Vaping Use: Never Used Second Hand Smoke Exposure: No service: No Current occupational status: employed 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[employer] [place] Current occupational exposures/hazards: No Cognitive needs: No Hearing needs: No Vision needs: Yes Female Reproductive History Menstrual Age of Menarche: 14 Physical Exam Vital Signs: Last Vital Signs Pulse 79 10/31/23 15:03 BP 164/67 H 10/31/23 15:03 BMI result Body Mass Index 29.1 Const General: cooperative and no acute distress Nutritional Appearance: well nourished Orientation/consciousness: patient oriented x3 Limitations: no limitations HEENT Head: Yes normocephalic and Yes atraumatic Ears: hearing grossly normal bilaterally Chest Other: Bilateral dense breast tissue especially in the upper quadrants. Left breast: No skin change, no nipple retraction, no nipple discharge, no palpable mass, no enlarged lymph nodes. Right breast: No skin change, no nipple retraction, no nipple discharge, no palpable mass, no enlarged lymph nodes Resp Effort & Inspection: normal respiratory effort, no audible wheezes, no cough and no respiratory distress Cardio Jugular venous distension: no JVD GI Inspection: Yes normal to inspection Skin Other: Warm, dry, no rash Neuro General: patient oriented x3 Extrem General: Yes no clubbing, cyanosis or edema Assessment & Plan Assessment & Plan (1) At high risk for breast cancer: Code(s): Z91.89 - Other specified personal risk factors, not elsewhere classified (2) Family history of breast cancer: Code(s): Z80.3 - Family history of malignant neoplasm of breast Plan 53-year-old female patient determined to be at high risk for breast cancer due to family history presenting for routine breast examination. Examination today revealed no suspicious findings in either breast. Her most recent mammogram of 11/12/2022 revealed no mammographic evidence of malignancy (BI-RADS 1). Her most recent MRI of 06/25/2023 also revealed no MR specific evidence of malignancy (BI- RADS 2 bilaterally). I recommended follow-up examination in approximately 6 months. She is scheduled for an annual mammogram on 11/27/2023. She is welcome to call sooner for any new concerns. Coding Level of Care Code Est Pt Level 3 (45711) Diagnoses At high risk for breast cancer Z91.89 Family history of breast cancer Z80.3
[2023-10-31 15:03] VITALS: BP 164/67; PULSE 79; BMI 29.1
== END 2023-10-31 15:12 | disposition home or self-care (01) ==
PROVIDERS: PCP Internal Medicine; Visit Provider Surgery
DX: Z80.3 Family history of malignant neoplasm of breast (principal); Z91.89 Other specified personal risk factors, not elsewhere classified
CPT/HCPCS: 99213

== ENCOUNTER → 2023-11-06 08:55 | Outpatient (BNVA) | payer OTHER, SELFPAY | PROVIDERS: PCP Internal Medicine; Visit Provider Physician Assistant | DX: Z13.89 Encounter for screening for other disorder (principal) | CPT/HCPCS: 99213 ==

== ENCOUNTER 2023-11-27 14:36 | Outpatient (REF) | payer OTHER, SELFPAY | END 2023-11-27 14:37 | disposition home or self-care (01) | LOC: HO.MAMMO 14:36 | PROVIDERS: PCP Internal Medicine; Visit Provider Internal Medicine | DX: Z12.31 Encounter for screening mammogram for malignant neoplasm of breast (principal) | CPT/HCPCS: 77063; 77067 ==

== ENCOUNTER → 2023-11-27 14:45 | Outpatient (BNV) | payer OTHER, SELFPAY | PROVIDERS: PCP Internal Medicine; Visit Provider Radiology Diagnostic Radiology | DX: Z12.31 Encounter for screening mammogram for malignant neoplasm of breast (principal) | CPT/HCPCS: 77063; 77067 ==

== ENCOUNTER 2023-12-13 07:21 | Emergency (ER) | payer OTHER, SELFPAY ==
[2023-12-13 07:23] VITALS: BP 147/94; PULSE 79; RESP 18; TEMP 37.1; O2SAT 98; BMI 25.3
--- NOTE | 2023-12-13 07:51 | PC.NURSE ---
Pt brought to [facility] for treatment, assumed care of pt at this time. A&Ox3 skin pwd respirations even unlabored. Endorsing ?allergic rxn to ambesol? Pt reports coughing and difficulty swallowing overnight, awoke with tongue swelling this morning. Has been using ambesol for dental pain x 1 day. Maintaining airway without difficulty, speaking in full clear sentences. No facial swelling or rashes noted. Pt endorses allergy to oranges, unknown if ambesol flavored? IV access obtained,Spo2 98% on RA awaiting primary provider stepan, aware of plan of care.
[2023-12-13 08:00] VITALS: PULSE 71; O2SAT 98
--- NOTE | 2023-12-13 08:04 | ED.ALLEREA ---
HPI - Allergic Reaction General Chief complaint: Allergic Reaction Stated complaint: allergic reaction ? Time Seen by Provider: 12/13/23 07:36 History of Present Illness HPI narrative: Patient is a 53-year-old female with a history of hypertension. Patient baseline is on lisinopril. Been having some toothache 1 of her 2 fell out. Patient has been putting Marlene's saw on the upper gum. Now noticed swelling to the tongue on the right side. Patient denies any difficulty swallowing. No change in her voice. No change in breathing pattern. She is from home. She has been taking the lisinopril on and off for the last month. The symptoms started last night. Related Data Previous Rx's Medication Instructions Recorded Ventolin HFA 90 mcg/actuation 2 puff inhalation Q6H PRN 04/25/23 aerosol inhaler (albuterol sulfate) shortness of breath or wheezing 30 days #8 grams albuterol sulfate 2.5 mg/3 mL 2.5 mg (3 mL) inhalation Q4-6H PRN 07/01/23 (0.083 %) solution for nebulization shortness of breath or wheezing 30 days #75 mL nebulizers (AeroEclipse II #1 ea 07/01/23 Nebulizer) cholecalciferol (vitamin D3) 25 25 mcg PO DAILY 90 days #90 caps 10/28/23 mcg (1,000 unit) capsule cyclobenzaprine 5 mg tablet 5 mg PO TID PRN Muscle Pain 30 10/28/23 days #90 tabs epinephrine 0.3 mg/0.3 mL 0.3 mg (0.3 mL) IM Q4H PRN 10/28/23 injection, auto-injector (EpiPen anaphylaxis 30 days #2 ea 2-Capo) lisinopril 10 mg tablet 10 mg PO DAILY #90 tabs 10/28/23 meclizine 25 mg tablet 25 mg PO TID PRN dizziness 30 days 10/28/23 #90 tabs ibuprofen 800 mg tablet 800 mg PO TID pain swelling #60 10/29/23 tabs diphenhydramine HCl 25 mg capsule 25 mg PO Q8H 5 days #15 caps 12/13/23 (Benadryl) epinephrine 0.3 mg/0.3 mL 0.3 mg (0.3 mL) IM ONCE PRN 12/13/23 injection, auto-injector (EpiPen) extreme reaction #1 ea famotidine 20 mg tablet (Pepcid) 20 mg PO BID 5 days #10 tabs 12/13/23 prednisone 20 mg tablet 40 mg (2 x 20 mg) PO DAILY #10 tabs 12/13/23 Allergies Allergy/AdvReac Type Severity Reaction Status Date / Time apple AdvReac Severe Hives Verified 10/31/23 15:04 oranges Allergy Unknown rash Uncoded 10/31/23 15:04 penicillin Allergy Unknown rash Uncoded 10/31/23 15:04 Review of Systems Review of Systems: Positive history of hypertension Yes all other systems are reviewed and are negative [facility] Past Medical History Medical History Murmur Leukopenia Chronic fatigue Vertigo Scoliosis Mild persistent asthma Surgical History History of tubal ligation H/O: hysterectomy Family History Family History Mother Diabetes Stroke Heart attack Father Heart attack Sister Breast cancer, Onset Age: 56 Sister Brain cancer Skin cancer Brother Prostate cancer Social History Social History Household Members: Spouse Housing: House Are you a primary health care specialist to a significant other at home: Yes (sister) Do you presently have visiting nurse or other home services: No Alcohol intake: current Alcohol intake frequency: holidays/special occasions only Alcohol type: wine Patient Tobacco Use Status: Never used Tobacco Smoked in Last 30 Days: No e-Cigarette/Vaping Use: Never Used Second Hand Smoke Exposure: No Use of substances other than those prescribed or required for medical reasons: No Advance Directives: Yes Advance Directives Information Provided: Yes Advance Directives on File: No Patient : No service: No Current occupational status: employed 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 Oriented X3. No acute distress. Eyes: Pupils equal, round and reactive to light. ENT: Pharynx normal. Posterior pharynx is normal. There is swelling to the right side of the tongue. It is minimal. I can see the posterior pharynx very well. There is no tenderness on the floor of the mouth. There is no tenderness at the gums. There is dental decay noted in the upper molar area on the right side. But there is no gross tenderness there is no gross abscess that was palpable. There has no swelling of the face. Neck: Normal inspection. Neck supple. No lymph nodes noted. No crepitus CVS: Normal heart rate and rhythm. Pulses normal. Normal S1 and S2 Respiratory: No respiratory distress. Breath sounds normal. No Wheezing. No rales Abdomen: Soft and nontender. No rigidity. No distention. good BS x4 Skin: Skin warm and dry. Normal skin color. Normal skin turgor. Extremities: No lower extremity edema. Neurovascular intact to all extremities. No Lacerations. No Rash Neuro: Oriented X 3. No motor deficit. No sensory deficit. Moving all extermities. No slurred speech Medications Administered Discontinued Medications Generic Name Dose Route Start Last Admin Trade Name Freq PRN Reason Stop Dose Admin Diphenhydramine HCl 25 mg 12/13/23 08:09 12/13/23 08:14 Diphenhydramine Hcl 25 Mg Capsule PO 12/13/23 08:10 25 mg ONCE ONE Administration Famotidine 20 mg 12/13/23 08:09 12/13/23 08:14 Famotidine 20 Mg Tablet PO 12/13/23 08:10 20 mg ONCE ONE Administration Prednisone 60 mg 12/13/23 08:09 12/13/23 08:14 Prednisone 20 Mg Tablet PO 12/13/23 08:10 60 mg ONCE ONE Administration Medical Decision Making Medical Decision Making MDM Narrative: 08:00 Patient's symptoms are consistent with having angioedema most likely from lisinopril use. Patient does have dental decay but does not seem to be related. Currently in stable condition. Will give steroids will give Benadryl and Pepcid. Monitor for 2 hours. 10:00 patient symptom seems to have gotten slightly better. Not in any acute distress. Voice is normal. Posterior pharynx clearly visible. Patient explained again to stop using the lisinopril. Closely follow-up on an outpatient basis. In stable condition. Differential Diagnosis Differential Diagnoses: The differential diagnosis associated with the presentation includes Admission/Observation Consideration of admission/observation: Escalation of care including admission/observation considered Lab Data MDM Lab Attestation statement: I reviewed the patient's lab results. 12/13/23 08:23 12/13/23 08:23 Labs: Lab Results 12/13/23 Range/Units 08:23 WBC 4.6 L (4.8-10.8) X10*3/uL RBC 3.83 L (4.20-5.50) X10*6/uL Hgb 11.1 L (12.0-16.0) g/dl Hct 33.5 L (37.0-47.0) % MCV 87.5 (80.0-98.0) fL MCH 29.0 (27.0-33.0) pg MCHC 33.1 (31.0-35.0) g/dl RDW 13.3 (11.0-16.0) % Plt Count 292 (160-400) X10*3/uL MPV 10.2 (9.4-12.3) fL Immature Gran % (Auto) 0.2 (0.0-0.4) % Neut % (Auto) 58.2 (45-73) % Lymph % (Auto) 23.3 (20-40) % [place] % (Auto) 10.3 (2-11) % Eos % (Auto) 7.1 H (0-4) % Baso % (Auto) 0.9 (0-2) % Lymph # (Auto) 1.1 L (1.2-4.9) X10*3/uL [place] # (Auto) 0.5 (0.1-1.2) X10*3/uL Eos # (Auto) 0.3 (0.0-0.4) X10*3/uL Baso # (Auto) 0.0 (0.0-0.2) X10*3/uL Abs Immat Gran (auto) 0.01 (0.00-0.03) X10*3/uL Absolute Neuts (auto) 2.7 (2.0-8.3) x10*3/uL Absolute Nucleated RBC 0.000 (0.0-0.012) X10*3/uL Nucleated RBC % (auto) 0.0 (0.0-0.2) /100WBC Sodium 141 (135-145) mmol/L Potassium 4.1 (3.3-5.1) mmol/L Chloride 109 H (96-108) mmol/L Carbon Dioxide 25 (22-29) mmol/L Anion Gap 11 L (12-20) BUN 7 L (9-16) mg/dL Creatinine 0.79 (0.5-1.4) mg/dL Estim Creat Clear Calc 82.1 Estimated GFR > 60 Random Glucose 86 (60-115) mg/dL Calcium 9.2 D (8.4-10.2) mg/dL Chronic Conditions Hypertension on lisinopril Discharge Plan Discharge Clinical Impression: Angio-edema Patient Disposition: Home, Self-Care Instructions: Angioedema (ED) Additional Instructions: Please stop the lisinopril Prescriptions: New diphenhydramine HCl [Benadryl] 25 mg capsule 25 mg PO Q8H 5 Days Qty: 15 0RF prednisone 20 mg tablet 40 mg PO DAILY Qty: 10 0RF famotidine [Pepcid] 20 mg tablet 20 mg PO BID 5 Days Qty: 10 0RF epinephrine [EpiPen] 0.3 mg/0.3 mL auto-injector 0.3 mg IM ONCE PRN (Reason: extreme reaction) Qty: 1 0RF Rx Instructions: for 2 doses No Action (DME) nebulizers [AeroEclipse II Nebulizer] Misc See Rx Instructions .Route Qty: 1 0RF Rx Instructions: As directed albuterol sulfate 2.5 mg /3 mL (0.083 %) solution for nebulization 2.5 mg inhalation Q4-6H PRN (Reason: shortness of breath or wheezing) 30 Days Qty: 75 0RF cholecalciferol (vitamin D3) 25 mcg (1,000 unit) capsule 25 mcg PO DAILY 90 Days Qty: 90 1RF cyclobenzaprine 5 mg tablet 5 mg PO TID PRN (Reason: Muscle Pain) 30 Days Qty: 90 0RF epinephrine [EpiPen 2-Capo] 0.3 mg/0.3 mL auto-injector 0.3 mg IM Q4H PRN (Reason: anaphylaxis) 30 Days Qty: 2 0RF lisinopril 10 mg tablet 10 mg PO DAILY Qty: 90 1RF meclizine 25 mg tablet 25 mg PO TID PRN (Reason: dizziness) 30 Days Qty: 90 2RF albuterol sulfate [Ventolin HFA] 90 mcg/actuation HFA aerosol inhaler 2 puff inhalation Q6H PRN (Reason: shortness of breath or wheezing) 30 Days Qty: 8 1RF ibuprofen 800 mg tablet 800 mg PO TID Qty: 60 0RF Referrals: Jennifer Bean MD [Primary Care Provider] - 12/16/23
[2023-12-13] MEDS: Famotidine 20 MG TABLET PO (08:14)
[2023-12-13] MEDS: predniSONE 20 MG TABLET 60 MG PO (08:14)
[2023-12-13] MEDS: diphenhydrAMINE HCL 25 MG CAPSULE PO (08:14)
--- NOTE | 2023-12-13 08:16 | PC.NURSE ---
Pt medicated per NOV, Spo2 99% RA, no change in physical assessment, awaiting lab draw and improvement in symptoms.
[2023-12-13 08:27] LABS: MANUAL DIFF FLAG NO
[2023-12-13 08:28] LABS: Basophils Percent Auto 0.9 % (0-2); Eosinophils Absolute Auto 0.3 X10*3/uL (0.0-0.4); Eosinophils Percent Auto 7.1 % (0-4); Hematocrit 33.5 % (37.0-47.0); Hemoglobin 11.1 g/dl (12.0-16.0); Imm Gran Abs Auto 0.01 X10*3/uL (0.00-0.03); Imm Gran Pct Auto 0.2 % (0.0-0.4); Lymphocytes Absolute Auto 1.1 X10*3/uL (1.2-4.9); Lymphocytes Percent Auto 23.3 % (20-40); Mean Corpuscular HGB Conc 33.1 g/dl (31.0-35.0); Mean Corpuscular Volume 87.5 fL (80.0-98.0); Mean Platelet Volume 10.2 fL (9.4-12.3); Monocytes Absolute Auto 0.5 X10*3/uL (0.1-1.2); Monocytes Percent Auto 10.3 % (2-11); Neutrophils Absolute Auto 2.7 x10*3/uL (2.0-8.3); Neutrophils Percent Auto 58.2 % (45-73); Platelet Count 292 X10*3/uL (160-400); Red Blood Count 3.83 X10*6/uL (4.20-5.50); Red Cell Distribution Width 13.3 % (11.0-16.0); White Blood Count 4.6 X10*3/uL (4.8-10.8)
[2023-12-13 08:55] LABS: Anion Gap 11 (12-20); Blood Urea Nitrogen 7 mg/dL (9-16); Calcium 9.2 mg/dL (8.4-10.2); Carbon Dioxide 25 mmol/L (22-29); Chloride 109 mmol/L (96-108); Creatinine Clr Calc Pharmacy 82.1; Estimated Glomerular Filt Rate > 60; Glucose Random 86 mg/dL (60-115); Potassium 4.1 mmol/L (3.3-5.1); Sodium 141 mmol/L (135-145)
[2023-12-13 10:33] VITALS: BP 148/85; PULSE 62; RESP 16; O2SAT 99
[2023-12-13 10:35] VITALS: BP 148/85; PULSE 62; RESP 16; TEMP 36.1; O2SAT 99
== END 2023-12-13 10:36 | disposition home or self-care (01) ==
PROVIDERS: Emergency Provider Emergency Medicine Emergency Medical Services; PCP Internal Medicine
DX: T78.3XXA Angioneurotic edema, initial encounter (principal); I10 Essential (primary) hypertension; Z79.899 Other long term (current) drug therapy
CPT/HCPCS: 36415; 80048; 85025; 99283; 99284

== ENCOUNTER 2024-04-28 15:59 | Outpatient (AMB) | payer BC, SELFPAY ==
[2024-04-28 16:11] VITALS: BP 120/72; BMI 24.6
--- NOTE | 2024-04-28 16:11 | MHC.PC.OV ---
Vital Signs 04/28/24 16:11 Height 5 ft 5 in Weight 148 lb BMI 24.6 BP 120/72 Blood Pressure Location Lt brachial Position Sitting Intake Visit Reasons: Annual Exam Intake Note: Patient here for an annual physical exam Appeals Rn Required: No Accompanied by: Self / Same As Patient Allergies apple Adverse Reaction (Severe, Verified 04/28/24 16:27) Hives oranges Allergy (Unknown, Uncoded 04/28/24 16:27) rash penicillin Allergy (Unknown, Uncoded 04/28/24 16:27) rash Medication List - Last Reconciled 04/28/24 by Jennifer Gonzalez MD albuterol sulfate 2.5 mg (3 mL) inhalation Q4-6H PRN 30 days cholecalciferol (vitamin D3) 25 mcg PO DAILY 90 days cyclobenzaprine 5 mg PO TID PRN 30 days diphenhydramine HCl (Benadryl) 25 mg PO Q8H 5 days epinephrine (EpiPen 2-Capo) 0.3 mg (0.3 mL) IM Q4H PRN 30 days famotidine (Pepcid) 20 mg PO BID 5 days ibuprofen 800 mg PO TID lisinopril 10 mg PO DAILY meclizine 25 mg PO TID PRN 30 days nebulizers (AeroEclipse II Nebulizer) As directed Ventolin HFA 90 mcg/actuation (albuterol sulfate) 2 puffs inhalation Q6H PRN 30 days NS Tobacco use date assessed: 10/28/23 Dental Screening Dental Screen Date: 10/28/23 HPI HPI Comments History of Present Illness Details This is a 53 year old female that comes for her physical exam. Mammogram done 2023 was normal. No need for Pap smear due to hysterectomy. Colonoscopy done last year at [facility] was normal as per patient. Complaints of bilateral shoulder pain aggravated by stress which is present due to personal issues. Has murmur and echo will be order. Also has strong family history of cancer and will be refer to [facility] genetics. [facility] Medical History (Updated 04/28/24 @ 16:47 by Jennifer Gonzalez MD) Murmur Leukopenia Chronic fatigue Vertigo Scoliosis Mild persistent asthma Surgical History History of tubal ligation H/O: hysterectomy Family History (Updated 04/28/24 @ 16:32 by Jennifer Gonzalez MD) Mother Diabetes Stroke Heart attack Father Heart attack Sister Breast cancer, Onset Age: 56 Sister Brain cancer Skin cancer Brother Prostate cancer Sister Primary cancer of bone marrow Social History Household Members: Spouse Housing: House Are you a primary nurse care manager to a significant other at home: Yes (sister) Do you presently have visiting nurse or other home services: No Alcohol intake: current Alcohol intake frequency: holidays/special occasions only Alcohol type: wine Patient Tobacco Use Status: Never used Tobacco e-Cigarette/Vaping Use: Never Used Second Hand Smoke Exposure: No service: No Current occupational status: employed 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 Lamont Hirsch, Kathi Sanders, Dale Crenshaw and colleagues, with an educational antoine from [employer]. Review of Systems Const All systems reviewed & are unremarkable except as noted in HPI and below Card Denies chest pain at rest, Denies chest pain with activity, Denies edema, Denies irregular heart rhythm, Denies claudication, Denies dyspnea, Denies dyspnea on exertion, Denies orthopnea, Denies paroxysmal nocturnal dyspnea and Denies slow heart rate Resp Denies cough, Denies dyspnea and Denies dyspnea on exertion GI Denies abdominal pain, Denies change in bowel habits, Denies excessive flatus, Denies nausea and Denies vomiting Physical exam (Primary Care) Vital Signs: Last Vital Signs BP 120/72 04/28/24 16:11 BMI result Body Mass Index 24.6 Tobacco/Smoking Status: Tobacco use Status Tobacco use date assessed 10/28/23 04/28/24 16:15 Patient Tobacco Use Status Never used Tobacco 04/28/24 16:15 e-Cigarette/Vaping Use Never Used 04/28/24 16:15 Thrive Assessment: Date of Thrive Assessment Date Thrive assessed 10/28/23 04/28/24 16:15 [place]EN[place] Head: Yes normal to inspection, Yes normocephalic and Yes atraumatic Ears: external ears normal Eyes General: appearance normal, both eyes and all related structures Eyelids: Yes eyelids normal Conjunctivae: conjunctivae normal Neck Neck: Yes normal visual inspection and Yes supple Resp Effort & Inspection: normal respiratory effort Auscultation: clear to auscultation bilaterally Cardio Jugular venous distension: no JVD Rate: regular rate Rhythm: regular rhythm Heart sounds: S1 normal heart sound present and S2 normal heart sound present GI Inspection: Yes normal to inspection Palpation (GI): Soft to palpation and nontender Auscultation: normal bowel sounds Skin General skin exam: no rashes or lesions noted Neuro General: no focal motor deficits Extrem General: Yes full ROM Psych Appearance: grossly normal Assessment and Plan Assessment & Plan (1) Physical exam: Code(s): Z00.00 - Encounter for general adult medical examination without abnormal findings Plan: Repeat in a year. (2) Murmur: Code(s): R01.1 - Cardiac murmur, unspecified Plan: Echo ordered. (3) Family history of cancer: Code(s): Z80.9 - Family history of malignant neoplasm, unspecified Plan: Refer to [facility] Genetics. Orders: Orders Lipid Panel Today Z00.00 - Encounter for general adult medical examination without abnormal findings Complete Blood Count Auto Diff Today D64.9 - Anemia, unspecified CA echo transthoracic complete Today R01.1 - Cardiac murmur, unspecified ECG 12 lead EKG Today R07.9 - Chest pain, unspecified Comprehensive [place]. Panel Fast Today Z00.00 - Encounter for general adult medical examination without abnormal findings Vitamin D 25-OH Total Today E55.9 - Vitamin D deficiency, unspecified IRON PROFILE Today D64.9 - Anemia, unspecified Referrals Genetics Referral Z80.9 - Family history of malignant neoplasm, unspecified Coding Level of Care Code Est Pt Level 3 (67510) Est Pt Prev Care 40-64y(49575) Diagnoses Physical exam Z00.00 Murmur R01.1 Family history of cancer Z80.9 Time Spent (min) 31
== END 2024-04-28 16:43 | disposition home or self-care (01) ==
PROVIDERS: PCP Internal Medicine; Visit Provider Internal Medicine
DX: Z00.00 Encounter for general adult medical examination without abnormal findings (principal); R01.1 Cardiac murmur, unspecified; Z80.9 Family history of malignant neoplasm, unspecified
CPT/HCPCS: 99213; 99396

== ENCOUNTER 2024-05-05 14:04 | Outpatient (AMB) | payer BC, SELFPAY ==
--- NOTE | 2024-05-05 14:06 | A.OFFVIS_ITS ---
Vital Signs 05/05/24 14:12 Height 5 ft 5 in Weight 150 lb BMI 25.0 BP 141/75 H Blood Pressure Location Lt brachial Position Sitting Pulse 76 Intake Visit Reasons: 6 mth breast exam Intake Note: Patient is seen in office for 6 month follow up visit, breast exam. Pt c/o: Plateman Required: No Accompanied by: Self / Same As Patient Allergies apple Adverse Reaction (Severe, Verified 05/05/24 14:11) Hives oranges Allergy (Unknown, Uncoded 05/05/24 14:11) rash penicillin Allergy (Unknown, Uncoded 05/05/24 14:11) rash HPI Comments Details: 53-year-old female patient with a strong family history of breast cancer including her sister who from from breast cancer, a maternal aunt diagnosed with breast cancer in her 50s, and a maternal cousin diagnosed with breast cancer in her 40s. She was identified as being at high risk for breast cancer due to her family history with a Tyrer-Cuzick remaining lifetime risk of breast cancer calculated at 20.1%. She is 2 para 2, did not breast feed her children. She underwent a hysterectomy without oophorectomy at the age of 38. Her most recent breast MRI performed on 06/25/2023 revealed stable findings with no suspicious mass or non-mass enhancement (BI-RADS 2 bilaterally). Her most recent mammogram of 11/27/2023 revealed no mammographic evidence of malignancy (BI-RADS 1). She is scheduled for follow-up mammogram on 12/02/2024. She denies any new breast symptoms. [facility] Medical History Murmur Leukopenia Chronic fatigue Vertigo Scoliosis Mild persistent asthma Surgical History History of tubal ligation H/O: hysterectomy Family History Mother Diabetes Stroke Heart attack Father Heart attack Sister Breast cancer, Onset Age: 56 Sister Brain cancer Skin cancer Brother Prostate cancer Sister Primary cancer of bone marrow Social History Household Members: Spouse Housing: House Are you a primary campground caretaker to a significant other at home: Yes (sister) Do you presently have visiting nurse or other home services: No Alcohol intake: current Alcohol intake frequency: holidays/special occasions only Alcohol type: wine Patient Tobacco Use Status: Never used Tobacco e-Cigarette/Vaping Use: Never Used Second Hand Smoke Exposure: No service: No Current occupational status: employed 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[employer] Current occupational exposures/hazards: No Cognitive needs: No Hearing needs: No Vision needs: Yes Female Reproductive History Menstrual Age of Menarche: 14 Review of Systems Const All systems reviewed & are unremarkable except as noted in HPI and below Denies nipple discharge Skin/Breast Denies breast swelling, Denies breast skin changes, Denies breast pain, Denies breast mass and Denies nipple discharge Derrick/Lymph Denies lymphadenopathy Physical Exam Const General: cooperative and no acute distress Nutritional Appearance: well nourished Orientation/consciousness: patient oriented x3 Limitations: no limitations HEENT Head: Yes normocephalic and Yes atraumatic Ears: hearing grossly normal bilaterally Chest Other: Bilateral very dense breast tissue especially in the upper quadrants. Left breast: No skin change, no nipple retraction, no nipple discharge, no palpable mass, no enlarged lymph nodes. Right breast: No skin change, no nipple retraction, no nipple discharge, no palpable mass, no enlarged lymph nodes Resp Effort & Inspection: normal respiratory effort, no audible wheezes, no cough and no respiratory distress Cardio Jugular venous distension: no JVD GI Inspection: Yes normal to inspection Skin Other: Warm, dry, no rash Neuro General: patient oriented x3 Extrem General: Yes no clubbing, cyanosis or edema Assessment & Plan Assessment & Plan (1) At high risk for breast cancer: Code(s): Z91.89 - Other specified personal risk factors, not elsewhere classified Category: Medical (2) Family history of breast cancer: Code(s): Z80.3 - Family history of malignant neoplasm of breast Category: Medical Plan 53-year-old female patient determined to be at high risk for breast cancer due to family history presenting for routine breast examination. Examination today revealed no suspicious findings in either breast. Her most recent mammogram of 11/27/2023 revealed no mammographic evidence of malignancy (BI-RADS 1). Her most recent MRI of 06/25/2023 also revealed no MR specific evidence of malignancy (BI- RADS 2 bilaterally). She will be due for an MRI in May 2024. I recommended follow-up examination in approximately 6 months. She is scheduled for an annual mammogram on 12/02/2024. She is welcome to call sooner for any new concerns. Orders: Orders breast BI wo/w con 06/26/24 Z80.3 - Family history of malignant neoplasm of breast, Z91.89 - Other specified personal risk factors, not elsewhere classified Coding Level of Care Code Est Pt Level 3 (12935) Diagnoses At high risk for breast cancer Z91.89 Family history of breast cancer Z80.3
[2024-05-05 14:12] VITALS: BP 141/75; PULSE 76; BMI 25.0
== END 2024-05-05 14:23 | disposition home or self-care (01) ==
PROVIDERS: PCP Internal Medicine; Visit Provider Surgery
DX: Z91.89 Other specified personal risk factors, not elsewhere classified (principal); Z80.3 Family history of malignant neoplasm of breast
CPT/HCPCS: 99213

== ENCOUNTER → 2024-05-05 14:04 | Outpatient (BNVA) | payer OTHER, SELFPAY | PROVIDERS: PCP Internal Medicine; Visit Provider Surgery | DX: Z91.89 Other specified personal risk factors, not elsewhere classified (principal); Z80.3 Family history of malignant neoplasm of breast ==

== ENCOUNTER 2024-05-12 06:56 | Outpatient (REF) | payer BC, SELFPAY ==
[2024-05-12 07:03] LABS: MANUAL DIFF FLAG NO
[2024-05-12 07:26] LABS: Basophils Percent Auto 0.6 % (0-2); Eosinophils Absolute Auto 0.1 X10*3/uL (0.0-0.4); Eosinophils Percent Auto 2.3 % (0-4); Hematocrit 35.8 % (37.0-47.0); Hemoglobin 11.7 g/dl (12.0-16.0); Imm Gran Abs Auto 0.01 X10*3/uL (0.00-0.03); Imm Gran Pct Auto 0.2 % (0.0-0.4); Lymphocytes Percent Auto 38.6 % (20-40); Mean Corpuscular HGB Conc 32.7 g/dl (31.0-35.0); Mean Corpuscular Volume 88.6 fL (80.0-98.0); Mean Platelet Volume 10.7 fL (9.4-12.3); Monocytes Absolute Auto 0.6 X10*3/uL (0.1-1.2); Neutrophils Absolute Auto 2.4 x10*3/uL (2.0-8.3); Neutrophils Percent Auto 47.3 % (45-73); Platelet Count 322 X10*3/uL (160-400); Red Blood Count 4.04 X10*6/uL (4.20-5.50); Red Cell Distribution Width 13.6 % (11.0-16.0); White Blood Count 5.1 X10*3/uL (4.8-10.8)
[2024-05-12 07:59] LABS: Alanine Aminotransferase 12 U/L (0-31); Albumin Level 4.2 g/dL (3.5-5.0); Alkaline Phosphatase 68 U/L (39-117); Anion Gap 10 (12-20); Aspartate Amino Transferase 15 U/L (5-31); Bilirubin Total 0.4 mg/dL (0.0-1.0); Blood Urea Nitrogen 12 mg/dL (9-16); Calcium 9.3 mg/dL (8.4-10.2); Carbon Dioxide 25 mmol/L (22-29); Chloride 108 mmol/L (96-108); Cholesterol 178 mg/dL (<200); Estimated Glomerular Filt Rate > 60; Glucose Fasting 94 mg/dL (60-99); HDL Cholesterol 64 mg/dL (>40); Iron 44 mcg/dL (30-160); LDL Cholesterol Calculated 99 mg/dL (<100); Percent Iron Saturation 15 % (15-50); Potassium 3.7 mmol/L (3.3-5.1); Sodium 139 mmol/L (135-145); Total Iron Binding Capacity 294 mcg/dL (228-428); Total Protein 7.1 g/dL (6.5-8.0); Triglycerides 77 mg/dL (<150); Unsaturated Iron Binding 250 ug/dL
== END 2024-05-12 06:57 | disposition home or self-care (01) ==
LOC: HO.LAB 06:56
PROVIDERS: PCP Internal Medicine; Visit Provider Internal Medicine
DX: I10 Essential (primary) hypertension (principal); J45.909 Unspecified asthma, uncomplicated; E78.5 Hyperlipidemia, unspecified; E55.9 Vitamin D deficiency, unspecified
CPT/HCPCS: 36415; 80053; 80061; 82306; 83540; 85025

== ENCOUNTER → 2024-05-14 12:52 | Outpatient (REF) | payer BC, SELFPAY ==
--- NOTE | 2024-05-14 12:58 | ECG_ITS ---
Test Reason : chest pain Blood Pressure : / mmHG Vent. Rate : 068 BPM Atrial Rate : 068 BPM P-R Int : 142 ms QRS Dur : 094 ms QT Int : 400 ms P-R-T Axes : 018 024 055 degrees QTc Int : 425 ms Normal sinus rhythm Normal ECG When compared with ECG of 08-JUN-2023 21:42, Heart rate has increased Referred By: Jennifer Gonzalez Electronically Signed By:KEVON IVERSON
--- NOTE | 2024-05-14 12:58 | CA_ITS ---
Transthoracic Echocardiogram Patient (Last, First, Middle): Karmen Fernandez, Gender: Female Date of : 1970 Age: 53 Procedure Date: 05/14/2024 Procedure Type: Transthoracic Echocardiogram Location: OP Height: 162.56 cm Weight: 67.59 kg BSA: 1.73 m2 Heart Rate: bpm BP: 126 / 70 mmHg Feeder Associate: TO Referring MD: Jennifer Gonzalez MD Symptoms: R01.1 - Cardiac murmur, unspecified Study Quality: Adequate w contrast ECG Rhythm: Sinus Conclusions: - The left ventricular systolic function is normal. The calculated ejection fraction is 64% by biplane method. - No obvious valvular pathology seen on this study. Findings Procedure Information Contrast agent, definity, is being given per protocol without apparent complications. Left Ventricle Normal left ventricular cavity size. The left ventricular systolic function is normal. The calculated ejection fraction is 64% by biplane method. There is no evidence of regional wall motion abnormalities. Diastolic function is normal for age. There is mild septal asymmetric hypertrophy. Right Ventricle Normal right ventricular cavity size and systolic function. Atria Both atria are normal in size. Aortic Valve There is a normal trileaflet aortic valve. There is no aortic valve stenosis. There is no aortic valve regurgitation. Mitral Valve The mitral valve appears normal. There is trace mitral valve regurgitation. There is no mitral valve stenosis. Pulmonic Valve The pulmonic valve is likely normal. Tricuspid Valve Normal tricuspid valve structure. There is trace tricuspid valve regurgitation. There is no evidence of pulmonary hypertension. Great Vessels The asc aorta and aortic arch are normal in size. Venous The inferior vena cava is normal in size and collapses greater than 50% with inspiration. Pericardium/Pleural There is no evidence of pericardial effusion. Prior Study Comparison No prior study available for comparison. Recommendations, Care & Conclusions No obvious valvular pathology seen on this study. Measurements 2D Linear Measurements IVSd: 1.05 0.6-0.9/0.6-1.0 cm LVIDd: 4.37 3.9-5.3/4.2-5.9 cm LVIDd Index: 2.53 2.4-3.2/2.2-3.1 cm/m2 LVIDs: 2.63 2.0-3.6 cm LVPWd: 0.85 0.7-1.1 cm LA Diam: 3.10 2.7-3.8/3.0-4.0 cm LAIDs Index: 1.79 1.5-2.3 cm/m2 LV Mass: 169.07 67-162/88-224 g LV Mass Index: 97.73 43-95/49-115 g/m2 LVOT Diam: 2.00 3.0+(-)1.3 cm 2D Systolic Function EF 4C: 62.60 >55% EF 2C: 65.40 >55% EF BiP: 63.70 >55% Mitral Valve MV Pk E: 0.75 MV PK A: 0.60 MV Decel Time: 208.00 E/A: 1.30 E'Lateral: 11.00 E'Medial: 9.25 E/E' Med: 8.20 E/E' Lat: 6.90 PHT: 61.00 MVA PHT: 3.61 Decel Dickens: 3.63 Aortic Valve AoV Pk Jasbir: 1.62 AoV Mn Jasbir: 1.13 AoV VTI: 0.34 AoV Pk Grad: 10.00 Aov Mn Grad: 6.00 MASOUD Cont.VTI: 2.26 LVOT LVOT Pk Jasbir: 1.20 LVOT Mn Ajsbir: 0.84 LVOT VTI: 0.25 LVOT Pk Grad: 6.00 LVOT Mn Grad: 3.00 LVOT Diam: 2.00 LVOT Area: 3.14 Diastolic Function MV Pk E: 0.75 MV Pk A: 0.60 E/A: 1.30 E'Medial: 9.25 E/E' Med: 8.20 E' Laterial: 11.00 E/E' Lat: 6.90 Right Ventricle TAPSE (mm): 21.10 TVS' Jasbir: 11.60 Tricuspid Valve TR Pk Jasbir: 1.74 TR Pk Grad: 12.00 RA Press: 3.00 RVSP: 15.00 Great Vessels Aorta Sinus of Valsalva: 2.82 2.0-3.[address] [place]: 2.35 1.7-3.4 cm Ao Asc: 3.20 2.1-3.4 cm Ao Arch: 2.90 Updated in Other Vendor System with Status of Final Jeffrey Yu MD electronically signed on 05/16/2024 1:05:29 PM with status of Final
== END ==
LOC: HO.CARD 12:52
PROVIDERS: Visit Provider Internal Medicine
DX: R07.9 Chest pain, unspecified (principal); R01.1 Cardiac murmur, unspecified
CPT/HCPCS: 93005; 93306; Q9957

== ENCOUNTER → 2024-05-14 12:58 | Outpatient (BNV) | payer BC, SELFPAY | PROVIDERS: Visit Provider Internal Medicine | DX: I42.2 Other hypertrophic cardiomyopathy (principal) | CPT/HCPCS: 93306 ==

== ENCOUNTER 2024-06-05 07:44 | Emergency (ER) | payer BC, SELFPAY ==
[2024-06-05 08:13] VITALS: BP 125/79; PULSE 75; RESP 20; TEMP 36.8; O2SAT 100; BMI 26.0
--- NOTE | 2024-06-05 08:16 | ECG_ITS ---
Test Reason : dizziness Blood Pressure : / mmHG Vent. Rate : 071 BPM Atrial Rate : 071 BPM P-R Int : 154 ms QRS Dur : 098 ms QT Int : 406 ms P-R-T Axes : -01 006 032 degrees QTc Int : 441 ms Normal sinus rhythm Normal ECG When compared with ECG of 14-MAY-2024 12:58, No significant change was found Referred By: Generic ED Physician Electronically Signed By:KEVON IVERSON
[2024-06-05 08:31] LABS: MANUAL DIFF FLAG NO
[2024-06-05 08:32] LABS: Basophils Percent Auto 0.6 % (0-2); Eosinophils Absolute Auto 0.1 X10*3/uL (0.0-0.4); Hematocrit 35.5 % (37.0-47.0); Imm Gran Abs Auto 0.02 X10*3/uL (0.00-0.03); Imm Gran Pct Auto 0.4 % (0.0-0.4); Lymphocytes Absolute Auto 1.5 X10*3/uL (1.2-4.9); Lymphocytes Percent Auto 31.5 % (20-40); Mean Corpuscular HGB Conc 33.8 g/dl (31.0-35.0); Mean Corpuscular Hemoglobin 29.1 pg (27.0-33.0); Mean Corpuscular Volume 86.2 fL (80.0-98.0); Mean Platelet Volume 10.1 fL (9.4-12.3); Monocytes Absolute Auto 0.5 X10*3/uL (0.1-1.2); Monocytes Percent Auto 10.3 % (2-11); Neutrophils Absolute Auto 2.5 x10*3/uL (2.0-8.3); Neutrophils Percent Auto 54.2 % (45-73); Platelet Count 309 X10*3/uL (160-400); Red Blood Count 4.12 X10*6/uL (4.20-5.50); Red Cell Distribution Width 13.2 % (11.0-16.0); White Blood Count 4.6 X10*3/uL (4.8-10.8)
[2024-06-05 08:49] LABS: Alanine Aminotransferase 12 U/L (0-31); Albumin Level 4.3 g/dL (3.5-5.0); Alkaline Phosphatase 64 U/L (39-117); Anion Gap 11 (12-20); Aspartate Amino Transferase 17 U/L (5-31); Bilirubin Total 0.5 mg/dL (0.0-1.0); Blood Urea Nitrogen 10 mg/dL (9-16); Calcium 9.6 mg/dL (8.4-10.2); Carbon Dioxide 24 mmol/L (22-29); Chloride 110 mmol/L (96-108); Creatinine Clr Calc Pharmacy 73.7; Estimated Glomerular Filt Rate > 60; Glucose Random 95 mg/dL (60-115); Potassium 3.6 mmol/L (3.3-5.1); Sodium 141 mmol/L (135-145); Total Protein 7.2 g/dL (6.5-8.0)
[2024-06-05 08:51] VITALS: BP 133/84; BP 137/74; PULSE 73; PULSE 75
[2024-06-05 08:52] VITALS: BP 130/85; PULSE 79
--- NOTE | 2024-06-05 09:20 | ED_ITS ---
HPI - Dizziness General Chief Complaint: Dizziness Stated Complaint: dizzy Time Seen by Provider: 06/05/24 09:20 Source: patient Mode of arrival: ambulatory Limitations: no limitations History of Present Illness ED Provider: Nancy Arriola PA-C HPI Narrative: 53-year-old female with history of asthma, vertigo, hypertension who presents to the ER for evaluation of intermittent dizziness that started yesterday. Patient reports that she started feeling dizzy and lightheaded yesterday, symptoms were mild. Did not feel like her typical vertigo, no room spinning sensation but rather lightheadedness with a sort of pressure in her head. She did take meclizine with improvement in her symptoms. She woke up this morning with worsening dizziness and lightheadedness. It was worse with position changes. After she took a shower, she needed to sit on the edge of the bed because she was lightheaded. She was able to drive herself here where she works. She sat in the car for 30 minutes prior to coming in. When she got to the hospital lobby she felt like she was going to pass out. She denies any associated shortness of breath, chest pain, weakness, numbness, tingling, vision changes. She did have nausea and vomited twice. No abdominal pain. Symptoms improve with rest. She was brought to the ER for further evaluation. On arrival to the ER patient was hemodynamically stable. Her dizziness and lightheadedness resolved. She did throw up 1 more time. MD elicited complaint: dizziness and lightheadedness Pertinent past history: BPPV Onset (ago): day(s) Timing: gradual onset Description: lightheadedness Context: change in body position History of similar symptoms: Yes Exacerbating factors: change in body position Relieving factors: remaining still and medication Associated symptoms: nausea and vomiting Related Data Previous Rx's ?Medication ?Instructions ?Recorded Ventolin HFA 90 mcg/actuation 2 puff inhalation Q6H PRN 04/25/23 aerosol inhaler (albuterol sulfate) shortness of breath or wheezing 30 days #8 grams albuterol sulfate 2.5 mg/3 mL 2.5 mg (3 mL) inhalation Q4-6H PRN 07/01/23 (0.083 %) solution for nebulization shortness of breath or wheezing 30 days #75 mL nebulizers (AeroEclipse II #1 ea 07/01/23 Nebulizer) epinephrine 0.3 mg/0.3 mL 0.3 mg (0.3 mL) IM Q4H PRN 10/28/23 injection, auto-injector (EpiPen anaphylaxis 30 days #2 ea 2-Capo) lisinopril 10 mg tablet 10 mg PO DAILY #90 tabs 10/28/23 meclizine 25 mg tablet 25 mg PO TID PRN dizziness 30 days 10/28/23 #90 tabs ibuprofen 800 mg tablet 800 mg PO TID pain swelling #60 10/29/23 tabs diphenhydramine HCl 25 mg capsule 25 mg PO Q8H 5 days #15 caps 12/13/23 (Benadryl) famotidine 20 mg tablet (Pepcid) 20 mg PO BID 5 days #10 tabs 12/13/23 cholecalciferol (vitamin D3) 25 25 mcg PO DAILY 90 days #90 caps 05/17/24 mcg (1,000 unit) capsule cyclobenzaprine 5 mg tablet 5 mg PO TID PRN Muscle Pain 30 06/04/24 days #90 tabs Allergies Allergy/AdvReac Type Severity Reaction Status Date / Time apple AdvReac Severe Hives Verified 06/05/24 08:14 oranges Allergy Unknown rash Uncoded 06/05/24 08:14 penicillin Allergy Unknown rash Uncoded 06/05/24 08:14 Review of Systems 2 Review of Systems: Yes all other systems are reviewed and are negative [facility] Past Medical History Medical History Murmur Leukopenia Chronic fatigue Vertigo Scoliosis Mild persistent asthma Surgical History History of tubal ligation H/O: hysterectomy Family History Family History Mother Diabetes Stroke Heart attack Father Heart attack Sister Breast cancer, Onset Age: 56 Sister Brain cancer Skin cancer Brother Prostate cancer Sister Primary cancer of bone marrow Social History Social History Household Members: Spouse Housing: House Are you a primary director of medicare to a significant other at home: Yes (sister) Do you presently have visiting nurse or other home services: No Alcohol intake: current Alcohol intake frequency: a few times a month Alcohol type: wine Patient Tobacco Use Status: Never used Tobacco Smoked in Last 30 Days: No e-Cigarette/Vaping Use: Never Used Second Hand Smoke Exposure: No Use of substances other than those prescribed or required for medical reasons: No Advance Directives: Yes Advance Directives Information Provided: Yes Advance Directives on File: No Do you have a plan to hurt others: No Plan service: No Current occupational status: employed 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 Oriented X3. No acute distress. Head: normocephalic, atraumatic. Eyes: Pupils equal, round and reactive to light. EOMI, no nystagmus. ENT: Pharynx normal. No tonsillar swelling or exudate. Neck: Normal inspection. Neck supple. CVS: Normal heart rate and rhythm. Pulses normal. Respiratory: No respiratory distress. Breath sounds normal. Abdomen: Soft and nontender. +BS x4 Skin: Skin warm and dry. Normal skin color. Normal skin turgor. No rashes. Extremities: No lower extremity edema. No joint swelling. Neuro/psych: Oriented X 3. No motor deficit. No sensory deficit. CN II-XII intact. Normal speech and cognition. Normal yvnywn-[id number] and leeu-tt-iwai bilaterally. Steady gait. Medications Administered Discontinued Medications Generic Name Dose Route Start Last Admin Trade Name Freq PRN Reason Stop Dose Admin Sodium Chloride 1,000 mls @ 999 mls/hr 06/05/24 11:00 06/05/24 11:32 Ns IVCONT 06/05/24 12:00 999 mls/hr .Q1H1M SHE Administration Meclizine HCl 50 mg 06/05/24 09:21 06/05/24 10:14 Meclizine Hcl 25 Mg Tablet PO 06/05/24 09:22 50 mg ONCE ONE Administration Ondansetron HCl 4 mg 06/05/24 10:59 06/05/24 11:32 Ondansetron Hcl 4 Mg/2 Ml Vial IVPUSH 06/05/24 11:00 4 mg ONCE ONE Administration Medical Decision Making Medical Decision Making [facility] Narrative: 53-year-old female with a history of vertigo, hypertension, asthma who presents to the ER for evaluation of dizziness and light-headedness with report of presyncopal episode today. She had 2 episodes of vomiting. Symptoms have since resolved. She is neurologically intact with NIH of 0 on arrival. Lab workup shows no acute abnormality. orthostatics are negative. patient had another episode of lightheadedness there without any neurologic findings. treated with IVF and meclizine with improvement. no longer having any symptoms. case d/w dr. hale. resolution of symptoms is reassuring. no arrythmis or ectopy seen on monitor during her lightheaded episode here. comfortable with discharge home with outpatinet follow up with PCP and cardiology referral. patient agrees w/ plan and is stable for d/c. Differential Diagnosis Differential Diagnoses: The differential diagnosis associated with the presentation includes Vertigo, cerebellar stroke, dehydration, cardiac arrhythmia, medication effect, anxiety Admission/Observation Consideration of admission/observation: Escalation of care including admission/observation considered Lab Data [facility] Lab Attestation statement: I reviewed the patient's lab results. mild anemia, no metabolic derangement 06/05/24 08:26 06/05/24 08:26 Labs: Lab Results 06/05/24 Range/Units 08:26 WBC 4.6 L (4.8-10.8) X10*3/uL RBC 4.12 L (4.20-5.50) X10*6/uL Hgb 12.0 (12.0-16.0) g/dl Hct 35.5 L (37.0-47.0) % MCV 86.2 (80.0-98.0) fL MCH 29.1 (27.0-33.0) pg MCHC 33.8 (31.0-35.0) g/dl RDW 13.2 (11.0-16.0) % Plt Count 309 (160-400) X10*3/uL MPV 10.1 (9.4-12.3) fL Immature Gran % (Auto) 0.4 (0.0-0.4) % Neut % (Auto) 54.2 (45-73) % Lymph % (Auto) 31.5 (20-40) % Woodson % (Auto) 10.3 (2-11) % Eos % (Auto) 3.0 (0-4) % Baso % (Auto) 0.6 (0-2) % Lymph # (Auto) 1.5 (1.2-4.9) X10*3/uL Woodson # (Auto) 0.5 (0.1-1.2) X10*3/uL Eos # (Auto) 0.1 (0.0-0.4) X10*3/uL Baso # (Auto) 0.0 (0.0-0.2) X10*3/uL Abs Immat Gran (auto) 0.02 (0.00-0.03) X10*3/uL Absolute Neuts (auto) 2.5 (2.0-8.3) x10*3/uL Absolute Nucleated RBC 0.000 (0.0-0.012) X10*3/uL Nucleated RBC % (auto) 0.0 (0.0-0.2) /100WBC Sodium 141 (135-145) mmol/L Potassium 3.6 (3.3-5.1) mmol/L Chloride 110 H (96-108) mmol/L Carbon Dioxide 24 (22-29) mmol/L Anion Gap 11 L (12-20) BUN 10 (9-16) mg/dL Creatinine 0.86 (0.5-1.4) mg/dL Estim Creat Clear Calc 73.7 Estimated GFR > 60 Random Glucose 95 (60-115) mg/dL Calcium 9.6 (8.4-10.2) mg/dL Total Bilirubin 0.5 (0.0-1.0) mg/dL AST 17 (5-31) U/L ALT 12 (0-31) U/L Alkaline Phosphatase 64 (39-117) U/L Total Protein 7.2 (6.5-8.0) g/dL Albumin 4.3 (3.5-5.0) g/dL Independent Interpretation I performed an independent interpretation of an: EKG Interpretation: ekg w/ normal sinus rhythm, hr 71 bpm, no st segment elevations or depressions External Record Review External record reviewed: Outpatient record, Prior outpatient labs and Prior outpatient radiology Prescription Management I considered prescription management with: Other (meclizine) Critical Care Time Critical Care Time Critical Care Time: No Discharge Plan Discharge Clinical Impression: Dizziness Patient Disposition: Home, Self-Care Instructions: Lightheadedness (ED), Dizziness (ED) Additional Instructions: Your lab workup today was reassuring. Your EKG was normal. Your physical exam was normal. Recommend following up with Cardiology for further evaluation of dizziness and lightheadedness, call for an appointment. Name and number below. Rest and drink plenty of fluids today. When you were changing positions, do so slowly. If you develop new or worsening symptoms call 911 or come back to the ER for further evaluation. Prescriptions: No Action (DME) nebulizers [AeroEclipse II Nebulizer] Misc See Rx Instructions .Route Qty: 1 0RF Rx Instructions: As directed albuterol sulfate 2.5 mg /3 mL (0.083 %) solution for nebulization 2.5 mg inhalation Q4-6H PRN (Reason: shortness of breath or wheezing) 30 Days Qty: 75 0RF cholecalciferol (vitamin D3) 25 mcg (1,000 unit) capsule 25 mcg PO DAILY 90 Days Qty: 90 1RF cyclobenzaprine 5 mg tablet 5 mg PO TID PRN (Reason: Muscle Pain) 30 Days Qty: 90 0RF diphenhydramine HCl [Benadryl] 25 mg capsule 25 mg PO Q8H 5 Days Qty: 15 0RF famotidine [Pepcid] 20 mg tablet 20 mg PO BID 5 Days Qty: 10 0RF epinephrine [EpiPen 2-Capo] 0.3 mg/0.3 mL auto-injector 0.3 mg IM Q4H PRN (Reason: anaphylaxis) 30 Days Qty: 2 0RF lisinopril 10 mg tablet 10 mg PO DAILY Qty: 90 1RF meclizine 25 mg tablet 25 mg PO TID PRN (Reason: dizziness) 30 Days Qty: 90 2RF albuterol sulfate [Ventolin HFA] 90 mcg/actuation HFA aerosol inhaler 2 puff inhalation Q6H PRN (Reason: shortness of breath or wheezing) 30 Days Qty: 8 1RF ibuprofen 800 mg tablet 800 mg PO TID Qty: 60 0RF Referrals: [facility] [place] [facility] [Provider Group] (Lightheadedness, presyncope, rule out arrhythmia) Jennifer Bean MD [Primary Care Provider] - Print Language: Azeri
[2024-06-05] MEDS: Meclizine HCl 25 MG TABLET 50 MG PO (10:14)
[2024-06-05] MEDS: 0.9 % Sodium Chloride 1,000 ML 999 ML IVCONT (11:32)
[2024-06-05] MEDS: ondansetron HCL 4 MG/2 ML VIAL IVPUSH (11:32)
[2024-06-05 13:23] VITALS: BP 131/77; PULSE 71; RESP 16; TEMP 36.8; O2SAT 100
== END 2024-06-05 13:24 | disposition home or self-care (01) ==
PROVIDERS: Emergency Provider Emergency Medicine Emergency Medical Services; PCP Internal Medicine
DX: R42 Dizziness and giddiness (principal); R11.2 Nausea with vomiting, unspecified; I10 Essential (primary) hypertension; J45.909 Unspecified asthma, uncomplicated; Z79.899 Other long term (current) drug therapy
CPT/HCPCS: 36415; 80053; 85025; 93005; 96374; 99284; 99285; J2405

== ENCOUNTER → 2024-06-11 10:42 | Outpatient (REF) | payer BC, SELFPAY ==
--- NOTE | 2024-06-11 10:45 | HM_ITS ---
Conclusion: 1. Patient was monitored for total period of 2 days and 23 hours 2. Baseline was normal sinus rhythm with average heart of 77 beats per minute 3. No significant arrhythmias or pauses noted 4. Patient reported 1 event without reported symptoms correlating with sinus tachycardia MTDD
== END ==
LOC: HO.CARD 10:42
PROVIDERS: Visit Provider Internal Medicine Cardiovascular Disease
DX: R07.9 Chest pain, unspecified (principal); R42 Dizziness and giddiness; R01.1 Cardiac murmur, unspecified; R55 Syncope and collapse
CPT/HCPCS: 93242

== ENCOUNTER → 2024-06-11 10:45 | Outpatient (BNV) | payer BC, SELFPAY | PROVIDERS: Visit Provider Internal Medicine Cardiovascular Disease | DX: R00.0 Tachycardia, unspecified (principal) | CPT/HCPCS: 93244 ==

== ENCOUNTER 2024-06-16 16:05 | Outpatient (AMB) | payer BC, SELFPAY ==
--- NOTE | 2024-06-16 16:07 | A.OFFPC_ITS ---
Vital Signs 06/16/24 16:08 Height 5 ft 4 in Weight 140 lb BMI 24.0 BP 118/82 Blood Pressure Location Lt brachial Position Sitting Intake Visit Reasons: [facility] 06/05 dizziness [employer]estock Ex[employer] Required: No Accompanied by: Self / Same As Patient Allergies apple Adverse Reaction (Severe, Verified 06/16/24 16:29) Hives oranges Allergy (Unknown, Uncoded 06/16/24 16:29) rash penicillin Allergy (Unknown, Uncoded 06/16/24 16:29) rash Medication List - Last Reconciled 06/16/24 by Jennifer Gonzalez MD albuterol sulfate 2.5 mg (3 mL) inhalation Q4-6H PRN 30 days cholecalciferol (vitamin D3) 25 mcg PO DAILY 90 days cyclobenzaprine 5 mg PO TID PRN 30 days diphenhydramine HCl (Benadryl) 25 mg PO Q8H 5 days epinephrine (EpiPen 2-Capo) 0.3 mg (0.3 mL) IM Q4H PRN 30 days famotidine (Pepcid) 20 mg PO BID 5 days ibuprofen 800 mg PO TID lisinopril 10 mg PO DAILY meclizine 25 mg PO TID PRN 30 days nebulizers (AeroEclipse II Nebulizer) As directed Ventolin HFA 90 mcg/actuation (albuterol sulfate) 2 puffs inhalation Q6H PRN 30 days NS Tobacco use date assessed: 10/28/23 Dental Screening Dental Screen Date: 10/28/23 Did you have a dental visit in the last 12 months?: Yes Did you have a dental problem in the last 6 months where you did not have access to dental care?: No Was dental information given to patient?: Patient has dentist HPI HPI Comments History of Present Illness Details This is a 53-year-old female that comes today complaining of a new daily persistent headache that started over 2 weeks ago pressure like in quality associated with light-headedness, nausea and vomiting. She had this episode about a week ago in which she had to go to the ER. Romberg sign negative today. No neurological deficit. Will be referred to Neurology and MRI of the head will be ordered. [facility] Medical History (Updated 06/16/24 @ 16:35 by Jennifer Gonzalez MD) Murmur Leukopenia Chronic fatigue Vertigo Scoliosis Mild persistent asthma Surgical History History of tubal ligation H/O: hysterectomy Family History Mother Diabetes Stroke Heart attack Father Heart attack Sister Breast cancer, Onset Age: 56 Sister Brain cancer Skin cancer Brother Prostate cancer Sister Primary cancer of bone marrow Social History Household Members: Spouse Housing: House Are you a primary clinical manager home care to a significant other at home: Yes (sister) Do you presently have visiting nurse or other home services: No Alcohol intake: current Alcohol intake frequency: a few times a month Alcohol type: wine Patient Tobacco Use Status: Never used Tobacco e-Cigarette/Vaping Use: Never Used Second Hand Smoke Exposure: No service: No Current occupational status: employed 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 Lamont Hirsch, Kathi Sanders, Dale Crenshaw and colleagues, with an educational antoine from [employer]. Review of Systems Const All systems reviewed & are unremarkable except as noted in HPI and below ENT Reports dizziness Card Denies chest pain at rest, Denies chest pain with activity, Denies edema, Denies irregular heart rhythm, Denies claudication, Denies dyspnea, Denies dyspnea on exertion, Denies orthopnea, Denies paroxysmal nocturnal dyspnea and Denies slow heart rate Resp Denies cough, Denies dyspnea and Denies dyspnea on exertion GI Denies abdominal pain, Denies change in bowel habits, Denies excessive flatus, Denies nausea and Denies vomiting Denies urinary incontinence, Denies urinary hesitancy and Denies urinary urgency Musc Denies atrophy, Denies deformity and Denies limited range of motion Skin/Breast Denies bleeding lesions, Denies changing lesions and Denies rash Neuro Reports dizziness Physical exam (Primary Care) Vital Signs: Last Vital Signs BP 118/82 06/16/24 16:08 BMI result Body Mass Index 24.0 Tobacco/Smoking Status: Tobacco use Status Tobacco use date assessed 10/28/23 06/16/24 16:14 Patient Tobacco Use Status Never used Tobacco 06/16/24 16:14 e-Cigarette/Vaping Use Never Used 06/16/24 16:14 Thrive Assessment: Date of Thrive Assessment Date Thrive assessed 10/28/23 06/16/24 16:14 Resp Effort & Inspection: normal respiratory effort Auscultation: clear to auscultation bilaterally Cardio Jugular venous distension: no JVD Rate: regular rate Rhythm: regular rhythm Heart sounds: S1 normal heart sound present and S2 normal heart sound present Neuro Romberg Test: Negative Extrem General: Yes full ROM Assessment and Plan Assessment & Plan (1) New daily persistent headache: Code(s): G44.52 - New daily persistent headache (NDPH) Plan: Referred to neurology. MRI of the head ordered. Orders: Orders MR head/brain wo con Today G44.52 - New daily persistent headache (NDPH) Referrals Neurology Referral G44.52 - New daily persistent headache (NDPH) Coding Level of Care Code Est Pt Level 3 (63550) Complex EM visit Add On G2211 Diagnoses New daily persistent headache G44.52 Time Spent (min) 19
[2024-06-16 16:08] VITALS: BP 118/82; BMI 24.0
== END 2024-06-16 16:40 | disposition home or self-care (01) ==
PROVIDERS: PCP Internal Medicine; Visit Provider Internal Medicine
DX: G44.52 New daily persistent headache (NDPH) (principal)

== ENCOUNTER → 2024-06-16 16:05 | Outpatient (BNVA) | payer BC, SELFPAY | PROVIDERS: PCP Internal Medicine; Visit Provider Internal Medicine | DX: G44.52 New daily persistent headache (NDPH) (principal) ==

== ENCOUNTER → 2024-06-26 14:52 | Outpatient (BNV) | payer BC, SELFPAY | PROVIDERS: PCP Internal Medicine; Visit Provider Radiology Diagnostic Radiology | DX: R51.9 Headache, unspecified (principal); R42 Dizziness and giddiness | CPT/HCPCS: 70551 ==

== ENCOUNTER 2024-06-26 14:57 | Outpatient (REF) | payer BC, SELFPAY ==
--- NOTE | ~2024-06-26 | MR_ITS ---
EXAMINATION: MR BRAIN WITHOUT CONTRAST CLINICAL INFORMATION: Headache. Dizziness. COMPARISON: None available. TECHNIQUE: MRI of the brain was obtained using routine sequences without contrast. FINDINGS: Multifocal patchy and rounded hyperintense T2 FLAIR signal within the deep white matter supratentorial compartment more conspicuous in the right parietal white matter region. No restricted diffusion or susceptibility associated to these abnormality. No acute intracranial hemorrhage, mass effect, midline shift, hydrocephalus or herniation. [place]-white matter differentiation is normal. Posterior cranial fossa contents constrain no acute intracranial hemorrhage or mass effect. Sellar/suprasellar region is normal. Craniocervical junction is intact and normal. Flow-void signal within the main cerebral vessels is normal. Hyperintense T2 FLAIR signal within the right mastoid air cells. MR/MR head/brain wo con IMPRESSION: Deep white matter T2 FLAIR signal abnormalities which could be seen patients with migraines versus demyelinating plaques versus other etiologies. Recommend IV contrast enhanced MRI brain brain. Electronically signed by: Michele Villanueva MD 07/30/2024 03:20 PM EDT
== END 2024-06-26 14:58 | disposition home or self-care (01) ==
LOC: HO.MRI 14:57
PROVIDERS: PCP Internal Medicine; Visit Provider Internal Medicine
DX: G44.52 New daily persistent headache (NDPH) (principal)
CPT/HCPCS: 70551

== ENCOUNTER → 2024-07-08 11:51 | Outpatient (BNVA) | payer OTHER, SELFPAY | PROVIDERS: PCP Internal Medicine; Visit Provider Physician Assistant | DX: Z13.89 Encounter for screening for other disorder (principal) | CPT/HCPCS: 99202 ==

== ENCOUNTER 2024-08-10 07:48 | Outpatient (REF) | payer BC, SELFPAY ==
--- NOTE | ~2024-08-10 | MR_ITS ---
EXAMINATION: MR BRAIN WITH CONTRAST CLINICAL INFORMATION: New daily persistent headache. COMPARISON: Brain MRI from 06/26/2024. TECHNIQUE: MRI of the brain was obtained using routine sequences following the administration of 6.5 mL of Gadavist intravenous contrast. FINDINGS: The ventricles are normal in morphology and size. No abnormal mass effect. No midline shift. Normal positioning of the cerebellar tonsils. No demonstrated abnormal contrast enhancement. No T1 signal abnormalities to correlate with the previously demonstrated white matter changes. Normal, homogeneous marrow signal. Small right-sided mastoid effusion. MR/MR head/brain w con IMPRESSION: No demonstrated abnormal intracranial enhancement. No T1 signal abnormalities to correlate with the previously demonstrated white matter changes. Electronically signed by: Rob Sotelo DO 09/09/2024 06:35 AM JOSÉ MORROW
[2024-08-10] MEDS: gadobutroL 7.5 ML VIAL IVPUSH (08:18)
== END 2024-08-10 07:49 | disposition home or self-care (01) ==
LOC: HO.MRI 07:48
PROVIDERS: PCP Internal Medicine; Visit Provider Internal Medicine
DX: G44.52 New daily persistent headache (NDPH) (principal); G37.9 Demyelinating disease of central nervous system, unspecified
CPT/HCPCS: 70552; A9585

== ENCOUNTER 2024-10-08 12:14 | Outpatient (AMB) | payer BC, SELFPAY ==
--- NOTE | 2024-10-08 12:18 | A.OFFPC_ITS ---
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 Social Worker Required: No Accompanied by: Self / Same As Patient Allergies apple Adverse Reaction (Severe, Verified 10/08/24 12:27) Hives oranges Allergy (Unknown, Uncoded 10/08/24 12:27) rash penicillin Allergy (Unknown, Uncoded 10/08/24 12:27) rash Medication List - Last Reconciled 10/08/24 by Jennifer Gonzalez MD albuterol sulfate 2.5 mg (3 mL) inhalation Q4-6H PRN 30 days cholecalciferol (vitamin D3) 25 mcg PO DAILY 90 days cyclobenzaprine 5 mg PO TID PRN 30 days diphenhydramine HCl (Benadryl) 25 mg PO Q8H 5 days epinephrine (EpiPen 2-Capo) 0.3 mg (0.3 mL) IM Q4H PRN 30 days famotidine (Pepcid) 20 mg PO BID 5 days ibuprofen 800 mg PO TID lisinopril 10 mg PO DAILY meclizine 25 mg PO TID PRN 30 days nebulizers (AeroEclipse II Nebulizer) As directed Ventolin HFA 90 mcg/actuation (albuterol sulfate) 2 puffs inhalation Q6H PRN 30 days NS Tobacco use date assessed: 10/08/24 Dental Screening Dental Screen Date: 10/08/24 Did you have a dental visit in the last 12 months?: Yes Did you have a dental problem in the last 6 months where you did not have access to dental care?: No Was dental information given to patient?: Patient has dentist HPI HPI Comments History of Present Illness Details The patient is a 54-year-old female presenting with shortness of breath and cough. The onset of these symptoms was approximately three to five days ago. The symptoms consist of shortness of breath and a cough. The patient reported that she tested negative for COVID-19. It is noted that her sister is currently hospitalized with similar symptoms. The patient has been utilizing a rescue inhaler every four hours but reports experiencing no significant familial tendencies. There has been no mention of fever accompanying her symptoms. [facility] Medical History Murmur Leukopenia Chronic fatigue Vertigo Scoliosis Mild persistent asthma Surgical History History of tubal ligation H/O: hysterectomy Family History Mother Diabetes Stroke Heart attack Father Heart attack Sister Breast cancer, Onset Age: 56 Sister Brain cancer Skin cancer Brother Prostate cancer Sister Primary cancer of bone marrow Social History Household Members: Spouse Housing: House Are you a primary personal care attendant to a significant other at home: Yes (sister) Do you presently have visiting nurse or other home services: No Alcohol intake: current Alcohol intake frequency: a few times a month Alcohol type: wine Patient Tobacco Use Status: Never used Tobacco e-Cigarette/Vaping Use: Never Used Second Hand Smoke Exposure: No service: No Current occupational status: employed 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 1. Little interest or pleasure in doing things: not at all 2. Feeling down, depressed, or hopeless: not at all 3. Trouble falling or staying asleep, or sleeping too much: not at all 4. Feeling tired or having little energy: not at all 5. Poor appetite or overeating: not at all 6. Feeling bad about yourself - or that you are a failure or have let yourself or your family down: not at all 7. Trouble concentrating on things, such as reading the newspaper or watching television: not at all 8. Moving or speaking so slowly that other people could have noticed. Or the opposite - being so fidgety or restless that you have been moving around a lot more than usual: not at all 9. Thoughts that you would be better off or of hurting yourself in some way: not at all Total score: 0 Depression Screening Interpretation: Negative Depression Screening Done: Yes 07318 - PHQ-9 Billing: Yes Source: Developed by Drs. Lamont Hirsch, Kathi Sanders, Dale Crenshaw and colleagues, with an educational antoine from [employer]. Thrive Questionnaire Date Thrive assessed: 10/08/24 I am a: Patient What is your living situation today?: I have a steady place to live Within the past 12 months, did the food you bought not last and you didn't have the money to get more?: Never true Within the past 12 months, did you worry whether your food would run out before you got money to buy more?: Never true Do you have trouble paying for medicines?: No Do you have trouble getting transportation to medical appointments?: No Do you have trouble paying your heating and electricity bill?: No Do you have trouble taking care of your child, family member or friend?: No Do you have trouble with day-to-day activities such as bathing, preparing meals, shopping, managing finances, etc.?: No Are you currently unemployed and looking for a job?: No Are you interested in more education?: No Please select the resources that you would like help with: None Currently or been in a relationship where the following occur: No concerns reported THRIVE Score: 0 AUDIT C Alcohol Use Questionnaire (AUDIT-C) 1. How often do you have a drink containing alcohol?: Monthly or less 2. How many drinks containing alcohol do you have on a typical day when you are drinking?: 1 or 2 3. How often do you have six or more drinks on one occasion?: Never Total Score: 1 Score Reviewed/Action Taken: No LAYLA-7 AMB Questionnaire LAYLA-7 Date LAYLA - 7 assessed: 10/08/24 Feeling nervous, anxious, or on edge: 0 = Not at all Not being able to stop or control worryin = Not at all Worrying too much about different things: 0 = Not at all Trouble relaxin = Not at all Being so restless that it is hard to sit still: 0 = Not at all Becoming easily annoyed or irritable: 0 = Not at all Feeling afraid as if something awful might happen: 0 = Not at all Total LAYLA-7 score (0-4 normal; 5-9 mild; 10-14 moderate; 15-21 severe): 0 Source: Developed by Drs. Lamont Hirsch, Kathi Sanders, Dale Crenshaw and colleagues, with an educational antoine from [employer]. Review of Systems Const Details: - Respiratory: Reports shortness of breath and cough. Physical exam (Primary Care) Tobacco/Smoking Status: Tobacco use Status Tobacco use date assessed 10/28/23 10/08/24 09:54 Patient Tobacco Use Status Never used Tobacco 10/08/24 09:54 e-Cigarette/Vaping Use Never Used 10/08/24 09:54 Depression Screening Interpretation: Negative Thrive Assessment: Date of Thrive Assessment Date Thrive assessed 10/28/23 10/08/24 09:54 Currently or been in a relationship where the following occur: No concerns reported Telehealth Telehealth Telehealth Platform: Telephone Location of provider rendering services: practice address Location of patient: address on file Patient Identification confirmed using: Name, : Yes Telehealth method: voice only Patient verbally consented to treatment: Yes Patient verbally consented to billing insurance company: Yes Patient informed of any privacy concerns related to visit: Yes Minutes spent on Phone/Video with Pt.: 15 Coding Level of Care Code Tele Est Pt Level 3 (93642) Complex EM visit Add On G2211 Diagnoses Mild persistent asthma with exacerbation J45.31 Asthma severity: mild Asthma persistence: persistent Additional Codes PHQ-9 - 20220 - PHQ-9 Billing: Yes ([id number]) Time Spent (min) 15 Assessment & Plan Assessment & Plan (1) Asthma exacerbation: Code(s): J45.901 - Unspecified asthma with (acute) exacerbation Category: Medical Qualifiers: Asthma severity: mild Asthma persistence: persistent Qualified Code(s): J45.31 - Mild persistent asthma with (acute) exacerbation Plan - Conduct further testing and examination to determine the cause of the respiratory symptoms. Start Zpak. - Consider possible differential diagnoses, such as bacterial or viral infections, and proceed with appropriate testing if indicated. - Evaluate the effectiveness of the current use of the rescue inhaler and consider adjunctive therapies if necessary. Patient was informed and verbally consented to the use of an ambient scribe for clinic note documentation during this visit. I discussed with the patient the current presenting symptoms and the negative COVID-19 test result. We reviewed the use of her rescue inhaler, ensuring understanding and proper technique. The need for additional diagnostic evaluation was also communicated to better identify the underlying cause of her symptoms. The importance of monitoring her symptoms, especially given her sister?s hospitalization, was emphasized. Potential treatment options and the likelihood of requiring further intervention based on the diagnostic tests were also part of the discussion. Follow-up to reassess her condition and track symptom progression was advised. Medications: New azithromycin Take 2 tabs the first day, then 1 tab the next 4 days 250 mg PO DAILY 5 days 6 tabs 0RF Patient Instructions: - Use the rescue inhaler as prescribed and monitor the frequency and effectiveness. - Watch for any progression or worsening of symptoms, such as increased difficulty in breathing or the development of additional symptoms such as fever. - Seek immediate medical attention if symptoms worsen or new symptoms appear. - Stay informed of any changes in her sister's condition, as this could inform her own care.
== END 2024-10-08 13:56 | disposition home or self-care (01) ==
LOC: HO.HMCH 12:14
PROVIDERS: PCP Internal Medicine; Visit Provider Internal Medicine
DX: J45.31 Mild persistent asthma with (acute) exacerbation (principal)

== ENCOUNTER → 2024-10-08 12:14 | Outpatient (BNVA) | payer BC, SELFPAY | PROVIDERS: PCP Internal Medicine; Visit Provider Internal Medicine | DX: J45.31 Mild persistent asthma with (acute) exacerbation (principal) | CPT/HCPCS: 96127 ==

== ENCOUNTER 2024-10-10 10:51 | Observation (INO) | payer BC, SELFPAY ==
[2024-10-10] VITALS (10 sets, daily range): BP systolic 110–144; BP diastolic 65–100; PULSE 85–110; RESP 18–25; TEMP 36.3–37.4; O2SAT 93–98; BMI 25.2; BMI 25.4
--- NOTE | ~2024-10-10 | XR_ITS ---
CLINICAL HISTORY: cough x 1 wk 2 view chest x-ray Comparison: 07/01/2023 Findings: No consolidation or effusion. Normal size heart. No acute fracture. IMPRESSION: 1. No acute findings. This document has been electronically signed by: Yoni Millard MD on 10/10/2024 11:55:15
[2024-10-10 11:13] LABS: MANUAL DIFF FLAG NO
--- NOTE | 2024-10-10 11:14 | ED_ITS ---
HPI - General Adult General Chief complaint: Upper Respiratory Symptoms Stated complaint: asthma Time Seen by Provider: 10/10/24 11:12 Source: patient, RN notes reviewed and old records reviewed Mode of arrival: ambulatory Limitations: no limitations History of Present Illness ED Provider: Yloanda HERNÁNDEZ narrative: Patient is a 54-year-old female with history of asthma, HTN presenting to the emergency department with complaint of shortness of breath and nonproductive cough since Saturday. Denies fevers. Denies chest pain or palpitations. Saw PCP yesterday who started her on azithromycin, did not prescribe any prednisone. Patient has been using her nebulizer at home with little relief. MD complaint: shortness of breath Onset (ago): day(s) Treatments prior to arrival: other Related Data Previous Rx's ?Medication ?Instructions ?Recorded nebulizers (AeroEclipse II #1 ea 07/01/23 Nebulizer) epinephrine 0.3 mg/0.3 mL 0.3 mg (0.3 mL) IM Q4H PRN 10/28/23 injection, auto-injector (EpiPen anaphylaxis 30 days #2 ea 2-Capo) lisinopril 10 mg tablet 10 mg PO DAILY #90 tabs 10/28/23 meclizine 25 mg tablet 25 mg PO TID PRN dizziness 30 days 10/28/23 #90 tabs ibuprofen 800 mg tablet 800 mg PO TID pain swelling #60 10/29/23 tabs diphenhydramine HCl 25 mg capsule 25 mg PO Q8H 5 days #15 caps 12/13/23 (Benadryl) famotidine 20 mg tablet (Pepcid) 20 mg PO BID 5 days #10 tabs 12/13/23 cholecalciferol (vitamin D3) 25 25 mcg PO DAILY 90 days #90 caps 05/17/24 mcg (1,000 unit) capsule cyclobenzaprine 5 mg tablet 5 mg PO TID PRN Muscle Pain 30 06/04/24 days #90 tabs Ventolin HFA 90 mcg/actuation 2 puff inhalation Q6H PRN 08/18/24 aerosol inhaler (albuterol sulfate) shortness of breath or wheezing 30 days #8 grams albuterol sulfate 2.5 mg/3 mL 2.5 mg (3 mL) inhalation Q4-6H PRN 08/18/24 (0.083 %) solution for nebulization shortness of breath or wheezing 30 days #75 mL azithromycin 250 mg tablet 250 mg PO DAILY 5 days #6 tabs 10/08/24 albuterol sulfate 2.5 mg/3 mL 2.5 mg (3 mL) inhalation Q4-6H PRN 10/10/24 (0.083 %) solution for nebulization shortness of breath or wheezing #75 mL benzonatate 100 mg capsule 100 mg PO TID PRN cough #20 caps 10/10/24 prednisone 10 mg tablet 10 mg PO DIRECTED #18 tabs 10/10/24 Allergies Allergy/AdvReac Type Severity Reaction Status Date / Time apple AdvReac Severe Hives Verified 10/10/24 10:56 oranges Allergy Unknown rash Uncoded 10/10/24 10:56 penicillin Allergy Unknown rash Uncoded 10/10/24 10:56 Review of Systems 2 Review of Systems: As per HPI Yes all other systems are reviewed and are negative Constitutional: Constitutional: Reports as per HPI PMFSH Past Medical History Medical History Murmur Leukopenia Chronic fatigue Vertigo Scoliosis Mild persistent asthma Surgical History History of tubal ligation H/O: hysterectomy Family History Family History Mother Diabetes Stroke Heart attack Father Heart attack Sister Breast cancer, Onset Age: 56 Sister Brain cancer Skin cancer Brother Prostate cancer Sister Primary cancer of bone marrow Social History Social History Household Members: Spouse Housing: House Are you a primary healthcare administration intern to a significant other at home: Yes (sister) Do you presently have visiting nurse or other home services: No Alcohol intake: current Alcohol intake frequency: a few times a month Alcohol type: wine Patient Tobacco Use Status: Never used Tobacco Smoked in Last 30 Days: No e-Cigarette/Vaping Use: Never Used Second Hand Smoke Exposure: No Use of substances other than those prescribed or required for medical reasons: No Advance Directives: No Advance Directives Information Provided: Yes Do you have a plan to hurt others: No Plan Patient : No service: No Current occupational status: employed 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 Current occupational exposures/hazards: No Cognitive needs: No Hearing needs: No Vision needs: Yes Physical Exam ED Vital Signs: Vital Signs - 24 hr 10/10/24 10:54 10/10/24 11:18 10/10/24 11:35 Temperature 99.4 F Pulse Rate 94 85 110 H Respiratory Rate 24 H 23 H 24 H Blood Pressure 144/100 H 131/85 Pulse Oximetry 93 97 Oxygen Delivery Method Room Air Room Air 10/10/24 11:41 10/10/24 11:43 10/10/24 12:22 Temperature 98.9 F Pulse Rate 99 Respiratory Rate 25 H 18 Blood Pressure 110/65 Pulse Oximetry 97 98 Oxygen Delivery Method Room Air Room Air BMI result Body Mass Index 25.2 Vital signs have been reviewed and appear to be correct. Blood pressure elevated. Heart rate normal. Respiratory rate slightly tachypneic. Temperature normal. Oxygen saturation normal. Const General: cooperative, healthy appearing and no acute distress Orientation/consciousness: oriented to person, oriented to place, oriented to time and patient oriented x3 Limitations: no limitations HENWY Head: Yes normocephalic and Yes atraumatic Ears: external ears normal General nose exam: Normal external nose present Face and sinus: Yes face symmetric Mouth: oropharynx normal and moist mucous membranes Throat: Yes uvula midline Eyes Pupils: Equal, round and reactive pupils present Neck Neck: Yes normal visual inspection and Yes supple Resp Effort & Inspection: normal respiratory effort and not able to speak in complete sentences (speaking in 2-3 word sentences) Auscultation: wheezes expiratory wheezes, inspiratory wheezes and throughout Cardio Rate: regular rate Rhythm: regular rhythm Heart sounds: S1 normal heart sound present and S2 normal heart sound present GI Palpation (GI): Soft to palpation and nontender Auscultation: normoactive bowel sounds General: Yes no CVA tenderness Back/Spine/Pelvis Back: no CVA tenderness Skin General skin exam: elasticity normal and turgor normal Neuro General: oriented to person, oriented to place, oriented to time, patient oriented x3, moves all extremities, no focal motor deficits and CN's II-XI intact bilaterally Cranial nerves: Yes Equal, round and reactive pupils present Cognition (Neuro): normal cognition Extrem General: Yes full ROM, Yes no pedal edema and Yes no calf tenderness Psych Mental Status: mental status grossly normal Affect: normal affect Thought process: Normal thought process present Medications Administered Generic Name Dose Route Start Last Admin Trade Name Frejoanie PRN Reason Stop Dose Admin Magnesium Sulfate 2 gm in 50 mls @ 25 mls/hr 10/10/24 13:30 10/10/24 13:35 Magnesium Sulfate/H2o IV 10/10/24 15:29 25 mls/hr ONCE ONE Administration Discontinued Medications Generic Name Dose Route Start Last Admin Trade Name Freq PRN Reason Stop Dose Admin Albuterol Sulfate 7.5 mg/ 10 mg 10/10/24 11:07 10/10/24 11:17 Albuterol Sulfate 2.5 mg INHALE 10/10/24 11:08 10 mg ONCE ONE Administration Prednisone 60 mg 10/10/24 11:28 10/10/24 11:33 Prednisone 20 Mg Tablet PO 10/10/24 11:29 60 mg ONCE ONE Administration Medical Decision Making Medical Decision Making [facility] Narrative: Patient is a 54-year-old female with history of asthma, HTN presenting to the emergency department with complaint of shortness of breath and nonproductive cough since Saturday. On exam patient is awake, A+Ox3, mildly tachypneic, increased WOB, speaking in 2-3 word sentences, VS otherwise WNL, afebrile, normal neurological exam without focal deficits, physical exam findings as above. Given reported symptoms and physical exam findings, initial differential includes but is not limited to asthma exacerbation, viral illness, bronchitis, pneumonia. Labs unremarkable. Viral serology positive for RSV. No evidence of pneumonia on chest x-ray. My interpretation is in agreement with radiologist's interpretation. Patient continues to complain of chest tightness, will give IV magnesium. Reports worsening chest tightness with ambulation, able to maintain sats of 95-96%, but expressing concern about discharge home as she lives alone. Case discussed with Dr. Stiles who accepts admission to medicine. Differential Diagnosis Differential Diagnoses: The differential diagnosis associated with the presentation includes As per [facility] Admission/Observation Consideration of admission/observation: Escalation of care including admission/observation considered Patient would have been admitted to the hospital had their work up had any findings where hospital admission was appropriate and their clinical presentation warranted hospital admission. Lab Data [facility] Lab Attestation statement: I reviewed the patient's lab results. As per [facility] 10/10/24 11:09 10/10/24 11:09 Labs: Lab Results 10/10/24 10/10/24 Range/Units 11:09 11:50 WBC 3.6 L (4.8-10.8) X10*3/uL RBC 4.23 (4.20-5.50) X10*6/uL Hgb 12.4 (12.0-16.0) g/dl Hct 37.0 (37.0-47.0) % MCV 87.5 (80.0-98.0) fL MCH 29.3 (27.0-33.0) pg MCHC 33.5 (31.0-35.0) g/dl RDW 13.8 (11.0-16.0) % Plt Count 310 (160-400) X10*3/uL MPV 10.3 (9.4-12.3) fL Immature Gran % (Auto) 0.3 (0.0-0.4) % Neut % (Auto) 38.1 L (45-73) % Lymph % (Auto) 33.9 (20-40) % [place] % (Auto) 19.3 H (2-11) % Eos % (Auto) 8.1 H (0-4) % Baso % (Auto) 0.3 (0-2) % Lymph # (Auto) 1.2 (1.2-4.9) X10*3/uL [place] # (Auto) 0.7 (0.1-1.2) X10*3/uL Eos # (Auto) 0.3 (0.0-0.4) X10*3/uL Baso # (Auto) 0.0 (0.0-0.2) X10*3/uL Abs Immat Gran (auto) 0.01 (0.00-0.03) X10*3/uL Absolute Neuts (auto) 1.4 L (2.0-8.3) x10*3/uL Absolute Nucleated RBC 0.000 (0.0-0.012) X10*3/uL Nucleated RBC % (auto) 0.0 (0.0-0.2) /100WBC Sodium 140 (135-145) mmol/L Potassium 3.9 (3.3-5.1) mmol/L Chloride 110 H (96-108) mmol/L Carbon Dioxide 23 (22-29) mmol/L Anion Gap 11 L (12-20) BUN 7 L (9-16) mg/dL Creatinine 0.87 (0.5-1.4) mg/dL Estim Creat Clear Calc 71.0 Estimated GFR > 60 Random Glucose 79 (60-115) mg/dL Calcium 9.6 (8.4-10.2) mg/dL Magnesium 1.9 (1.6-2.6) mg/dL Total Bilirubin 0.3 (0.0-1.0) mg/dL AST 23 (5-31) U/L ALT 16 (0-31) U/L Alkaline Phosphatase 73 (39-117) U/L Total Protein 8.1 H (6.5-8.0) g/dL Albumin 4.3 (3.5-5.0) g/dL Influenza Type A (PCR) NEGATIVE (Negative) Influenza Type B (PCR) NEGATIVE (Negative) RSV RNA Qual (PCR) POSITIVE A (Negative) SARS-CoV-2 RNA (RT-PCR) NEGATIVE (Negative) Independent Interpretation I performed an independent interpretation of an: Plain X-Ray Interpretation: No evidence of pneumonia on chest x-ray Radiology Impression Discussion of test interpretation with radiology: I have reviewed the radiologist's reading. Radiologist Impression: Findings: No consolidation or effusion. Normal size heart. No acute fracture. IMPRESSION: 1. No acute findings. External Record Review External record reviewed: Inpatient record, Office record and Outpatient record Prescription Management I considered prescription management with: Other Discharge Plan Discharge Patient Disposition: Admitted As Inpatient Instructions: Respiratory Syncytial Virus (ED), Asthma (DC) Prescriptions: New albuterol sulfate 2.5 mg /3 mL (0.083 %) solution for nebulization 2.5 mg inhalation Q4-6H PRN (Reason: shortness of breath or wheezing) Qty: 75 0RF prednisone 10 mg tablet 10 mg PO DIRECTED Qty: 18 0RF Rx Instructions: see taper instructions 30mg (3 tabs) x 3 days, then 20mg (2 tabs) x 3 days, then 10mg (1 tab) x 3 days benzonatate 100 mg capsule 100 mg PO TID PRN (Reason: cough) Qty: 20 0RF No Action (DME) nebulizers [AeroEclipse II Nebulizer] [facility] [place] See Rx Instructions .Route Qty: 1 0RF Rx Instructions: As directed cholecalciferol (vitamin D3) 25 mcg (1,000 unit) capsule 25 mcg PO DAILY 90 Days Qty: 90 1RF cyclobenzaprine 5 mg tablet 5 mg PO TID PRN (Reason: Muscle Pain) 30 Days Qty: 90 0RF albuterol sulfate 2.5 mg /3 mL (0.083 %) solution for nebulization 2.5 mg inhalation Q4-6H PRN (Reason: shortness of breath or wheezing) 30 Days Qty: 75 0RF albuterol sulfate [Ventolin HFA] 90 mcg/actuation HFA aerosol inhaler 2 puff inhalation Q6H PRN (Reason: shortness of breath or wheezing) 30 Days Qty: 8 1RF diphenhydramine HCl [Benadryl] 25 mg capsule 25 mg PO Q8H 5 Days Qty: 15 0RF famotidine [Pepcid] 20 mg tablet 20 mg PO BID 5 Days Qty: 10 0RF epinephrine [EpiPen 2-Capo] 0.3 mg/0.3 mL auto-injector 0.3 mg IM Q4H PRN (Reason: anaphylaxis) 30 Days Qty: 2 0RF lisinopril 10 mg tablet 10 mg PO DAILY Qty: 90 1RF meclizine 25 mg tablet 25 mg PO TID PRN (Reason: dizziness) 30 Days Qty: 90 2RF azithromycin 250 mg tablet 250 mg PO DAILY 5 Days Qty: 6 0RF Rx Instructions: Take 2 tabs the first day, then 1 tab the next 4 days ibuprofen 800 mg tablet 800 mg PO TID Qty: 60 0RF Stand Alone Forms: Work/School Release Print Language: Italian
[2024-10-10] MEDS: Albuterol Sulfate 7.5 MG, Albuterol Sulfate (0.083%) 2.5 MG 10 MG INHALE (11:17)
[2024-10-10 11:19] LABS: Basophils Percent Auto 0.3 % (0-2); Eosinophils Absolute Auto 0.3 X10*3/uL (0.0-0.4); Eosinophils Percent Auto 8.1 % (0-4); Hemoglobin 12.4 g/dl (12.0-16.0); Imm Gran Abs Auto 0.01 X10*3/uL (0.00-0.03); Imm Gran Pct Auto 0.3 % (0.0-0.4); Lymphocytes Absolute Auto 1.2 X10*3/uL (1.2-4.9); Lymphocytes Percent Auto 33.9 % (20-40); Mean Corpuscular HGB Conc 33.5 g/dl (31.0-35.0); Mean Corpuscular Hemoglobin 29.3 pg (27.0-33.0); Mean Corpuscular Volume 87.5 fL (80.0-98.0); Mean Platelet Volume 10.3 fL (9.4-12.3); Monocytes Absolute Auto 0.7 X10*3/uL (0.1-1.2); Monocytes Percent Auto 19.3 % (2-11); Neutrophils Absolute Auto 1.4 x10*3/uL (2.0-8.3); Neutrophils Percent Auto 38.1 % (45-73); Platelet Count 310 X10*3/uL (160-400); Red Blood Count 4.23 X10*6/uL (4.20-5.50); Red Cell Distribution Width 13.8 % (11.0-16.0); White Blood Count 3.6 X10*3/uL (4.8-10.8)
[2024-10-10] MEDS: predniSONE 20 MG TABLET 60 MG PO (11:33)
[2024-10-10 11:34] LABS: Alanine Aminotransferase 16 U/L (0-31); Albumin Level 4.3 g/dL (3.5-5.0); Anion Gap 11 (12-20); Aspartate Amino Transferase 23 U/L (5-31); Blood Urea Nitrogen 7 mg/dL (9-16); Calcium 9.6 mg/dL (8.4-10.2); Carbon Dioxide 23 mmol/L (22-29); Chloride 110 mmol/L (96-108); Estimated Glomerular Filt Rate > 60; Glucose Random 79 mg/dL (60-115); Magnesium 1.9 mg/dL (1.6-2.6); Potassium 3.9 mmol/L (3.3-5.1); Sodium 140 mmol/L (135-145); Total Protein 8.1 g/dL (6.5-8.0)
[2024-10-10 11:50] LABS: Alkaline Phosphatase 73 U/L (39-117); Bilirubin Total 0.3 mg/dL (0.0-1.0)
[2024-10-10 12:41] LABS: Influenza A PCR NEGATIVE (Negative); Influenza B PCR NEGATIVE (Negative); Resp Syncy Virus RNA Qual PCR POSITIVE (Negative); SARS COV2 PCR INHOUSE NEGATIVE (Negative)
[2024-10-10] MEDS: Magnesium Sulfate/H2O 2 GM/50 ML PIGGYBACK IV (13:35)
--- NOTE | 2024-10-10 15:38 | P.HPHOSP_ITS ---
History of Present Illness Date of Service: 10/10/24 Attending physician on admission: Ovidio Stiles Chief Complaint: shortness of breath This is a 54-year-old female who presents to the emergency department with shortness of breath and cough. Patient has had symptoms for the past 5 days. She reports dry cough and shortness of breath with ambulation. She denies any associated fever or chills. She has been in contact with coworkers who have been sick recently. She has been using her rescue inhaler frequently but it has not been working. She was seen by her primary care provider on October 08 and prescribed antibiotics but her symptoms have not improved. In the emergency department she tested positive for RSV. Continued to be dyspneic with frequent cough. She received steroids, breathing treatment and will be admitted for further management of acute asthma exacerbation due to RSV Review of Systems 2 Review of Systems: Yes all other systems are reviewed and are negative Constitutional: Constitutional: Denies chills and Denies fever(s) Cardiovascular: Cardiovascular: Denies chest pain, Reports dyspnea and Reports dyspnea on exertion Respiratory: Respiratory: Reports cough, Reports dyspnea and Reports dyspnea on exertion Gastrointestinal: Gastrointestinal: Denies abdominal pain [facility] Medical History Murmur Leukopenia Chronic fatigue Vertigo Scoliosis Mild persistent asthma Family History Mother Diabetes Stroke Heart attack Father Heart attack Sister Breast cancer, Onset Age: 56 Sister Brain cancer Skin cancer Brother Prostate cancer Sister Primary cancer of bone marrow Surgical History History of tubal ligation H/O: hysterectomy Social History Household Members: None Housing: House Are you a primary home care provider to a significant other at home: Yes (sister) Do you presently have visiting nurse or other home services: No Alcohol intake: current Alcohol intake frequency: a few times a month Alcohol type: wine Patient Tobacco Use Status: Never used Tobacco Smoked in Last 30 Days: No e-Cigarette/Vaping Use: Never Used Second Hand Smoke Exposure: No Use of substances other than those prescribed or required for medical reasons: No Currently Displaying Signs/Symptoms of Drug Intoxication Withdrawal: No Do you feel safe in your current relationship?: Yes Advance Directives: No Advance Directives Information Provided: Yes Do you have a plan to hurt others: No Plan Recently lost weight without trying: No Nutrition Risks: No Nutritional Risk Patient : No : No service: No Current occupational status: employed 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 Current occupational exposures/hazards: No Cognitive needs: No Hearing needs: No Vision needs: Yes Meds Allergies Allergy/AdvReac Type Severity Reaction Status Date / Time apple AdvReac Severe Hives Verified 10/10/24 10:56 oranges Allergy Unknown rash Uncoded 10/10/24 10:56 penicillin Allergy Unknown rash Uncoded 10/10/24 10:56 Active Medications: Current Medications Sodium Chloride (0.9 % Sodium Chloride Flush 3 Ml Syringe) [facility] Medications ?Medication ?Instructions ?Recorded ?Confirmed ?Last Taken ?Type diphenhydramine HCl 25 mg capsule 25 mg PO Q8H PRN Allergy Symptoms 10/10/24 10/10/24 Unknown History (Benadryl) ibuprofen 200 mg tablet 400 mg PO Q8H PRN Pain 10/10/24 10/10/24 Unknown History Physical Exam 2 Vital Signs and Narrative: Vital Signs: Last Vital Signs Temp 98.9 F 10/10/24 12:22 Pulse 99 10/10/24 12:22 Resp 18 10/10/24 12:22 BP 110/65 10/10/24 12:22 Pulse Ox 98 10/10/24 12:22 O2 Del Method Room Air 10/10/24 12:22 BMI result Body Mass Index 25.2 Const: General: cooperative, alert and awake Nutritional Appearance: a verage body habitus Orientation/consciousness: patient oriented x3 Resp: Other: frequent coughing; scattered wheeze Effort & Inspection: normal respiratory effort, able to speak in complete sentences, no respiratory distress and no use of accessory muscles Cardio: Rate: regular rate GI: Inspection: No distended Palpation (GI): Soft to palpation and nontender Neuro: General: patient oriented x3, moves all extremities and CN's II-XI intact bilaterally Extrem: General: Yes no pedal edema Results Labs 10/10/24 11:09 10/10/24 11:09 Labs: Laboratory Results - last 24 hr 10/10/24 10/10/24 11:09 11:50 MCV 87.5 MCH 29.3 MCHC 33.5 RDW 13.8 Plt Count 310 MPV 10.3 Immature Gran % (Auto) 0.3 Neut % (Auto) 38.1 L Lymph % (Auto) 33.9 [place] % (Auto) 19.3 H Eos % (Auto) 8.1 H Baso % (Auto) 0.3 Lymph # (Auto) 1.2 [place] # (Auto) 0.7 Eos # (Auto) 0.3 Baso # (Auto) 0.0 Abs Immat Gran (auto) 0.01 Absolute Neuts (auto) 1.4 L Absolute Nucleated RBC 0.000 Nucleated RBC % (auto) 0.0 Anion Gap 11 L Estim Creat Clear Calc 71.0 Estimated GFR > 60 Random Glucose 79 Calcium 9.6 Magnesium 1.9 Total Bilirubin 0.3 AST 23 ALT 16 Alkaline Phosphatase 73 Total Protein 8.1 H Albumin 4.3 Influenza Type A (PCR) NEGATIVE Influenza Type B (PCR) NEGATIVE RSV RNA Qual (PCR) POSITIVE A SARS-CoV-2 RNA (RT-PCR) NEGATIVE Assessment and Plan (1) Asthma exacerbation: Status: Acute (2) RSV infection: Status: Acute Plan This is a 54-year-old female with history of asthma who presents to the emergency department with 5 day history of dry cough and shortness of breath found to have RSV Acute asthma exacerbation due to RSV Scheduled and as needed breathing treatments Systemic steroids Supportive care for cough continue baseline meds when med rec has been completed DVT prophylaxis, low risk, early ambulation, mechanical devices Quality Stroke Does the patient have a stroke diagnosis?: No VTE Prior VTE?: No VTE Risk Level:: Medical - moderate - high VTE Device Contraindication: N/A - Device Ordered VTE Drug Contraindication: Treatment Not Indicated
[2024-10-10] MEDS: Throat Lozenge, Medicated LOZENGE 1 LOZENGE MUCOUS MEM ×2 (15:54→20:11)
[2024-10-10] MEDS: 0.9 % Sodium Chloride Flush 3 ML SYRINGE IVFLUSH ×2 (15:54→20:17)
[2024-10-10] MEDS: methylPREDNISolone Sod Succ 40 MG/ML VIAL IVPUSH (16:41)
[2024-10-10] MEDS: guaiFEN/Codeine SF 200/20/10ML 10 ML LIQUID 5 ML PO (17:35)
[2024-10-10] MEDS: Albuterol Sulfate (0.042%) 1.25 MG/3 ML VIAL.NEB INHALE (17:45)
--- NOTE | 2024-10-10 18:04 | PHA.MEDREC ---
Addendum entered by Christa Telles RP 10/10/24 18:21: [facility] REVIEWED Original Note: Pharmacy Consult ? Medication Reconciliation Pharmacy has completed the medication reconciliation. Spoke to pt to confirm meds. Pt states they stopped taking lisinopril 10 mg daily because of the side effects (reported low BPs). They have told their PCP, who was not in agreement to stopping the medication, but the patient states to have stopped it regardless and have been off of the medication for a couple months. Left off med rec as no longer taking.
[2024-10-10] MEDS: Acetaminophen 325 MG TABLET 650 MG PO (20:13)
[2024-10-10] MEDS: Albuterol/Iprat 2.5/0.5MG 3 ML AMPUL.NEB INHALE (20:39)
[2024-10-11] MEDS: Albuterol Sulfate (0.042%) 1.25 MG/3 ML VIAL.NEB INHALE (00:58)
[2024-10-11 00:59] VITALS: PULSE 104; RESP 18; O2SAT 96
[2024-10-11] MEDS: guaiFEN/Codeine SF 200/20/10ML 10 ML LIQUID 5 ML PO (03:55)
[2024-10-11 03:56] VITALS: BP 146/74; PULSE 80; RESP 18; TEMP 36.6; O2SAT 99
[2024-10-11] MEDS: methylPREDNISolone Sod Succ 40 MG/ML VIAL IVPUSH (04:01)
[2024-10-11 07:59] VITALS: BP 141/80; PULSE 65; RESP 18; TEMP 36.3; O2SAT 96
[2024-10-11] MEDS: Albuterol/Iprat 2.5/0.5MG 3 ML AMPUL.NEB INHALE (08:04)
[2024-10-11 08:06] VITALS: PULSE 91; RESP 16; O2SAT 97
[2024-10-11] MEDS: 0.9 % Sodium Chloride Flush 3 ML SYRINGE IVFLUSH (08:36)
[2024-10-11] MEDS: Cholecalciferol (Vitamin D3) 25 MCG TABLET PO (08:36)
[2024-10-11] MEDS: Azithromycin 250 MG TABLET PO (08:36)
--- NOTE | 2024-10-11 10:49 | PM.DS ---
DS: Providers Provider Date of Service: 10/11/24 Date of admission: 10/10/24 15:33 Date of discharge: 10/11/24 Primary care physician: Jennifer Gonzalez MD Attending physician on discharge: [facility] Discharging clinician: Marnie Stephen DS: Diagnosis Discharge Diagnosis (1) Asthma exacerbation: Status: Acute (2) RSV infection: Status: Acute DS: Summary Hospital Course Hospital Course: From H&P on the day of admission This is a 54-year-old female who presents to the emergency department with shortness of breath and cough. Patient has had symptoms for the past 5 days. She reports dry cough and shortness of breath with ambulation. She denies any associated fever or chills. She has been in contact with coworkers who have been sick recently. She has been using her rescue inhaler frequently but it has not been working. She was seen by her primary care provider on October 08 and prescribed antibiotics but her symptoms have not improved. In the emergency department she tested positive for RSV. Continued to be dyspneic with frequent cough. She received steroids, breathing treatment and will be admitted for further management of acute asthma exacerbation due to RSV Acute exacerbation of asthma due to RSV Treated with systemic steroids and symptomatic support with cough suppressant. Respiratory status and wheezing improved significantly. No episodes of hypoxia. Patient able to ambulate without significant dyspnea and stable to for discharge home. Time Attestation Total time managing care of this patient today: 35 mintues. Discharge Coordination Time (in mins): 35 Quality: Safe Use of Opioids Does Pt have an Active Cancer Diagnosis on the Problem List?: No Quality: Stroke Does the patient have a stroke diagnosis?: No Physical Exam Vital Signs: Vital Signs: Last Vital Signs Temp 97.4 F 10/11/24 07:59 Pulse 91 10/11/24 08:06 Resp 16 10/11/24 08:06 BP 141/80 H 10/11/24 07:59 Pulse Ox 96 10/11/24 07:59 O2 Del Method Room Air 10/11/24 07:59 BMI result Body Mass Index 25.4 Const: General: cooperative, alert and awake Nutritional Appearance: average body habitus Orientation/consciousness: patient oriented x3 Resp: Other: intermittent coughing Effort & Inspection: normal respiratory effort, able to speak in complete sentences, no respiratory distress and no use of accessory muscles Cardio: Rate: regular rate GI: Inspection: No distended Palpation (GI): Soft to palpation and nontender Neuro: General: patient oriented x3, moves all extremities and CN's II-XI intact bilaterally Extrem: General: Yes no pedal edema DS: Data Data Completed and Pending Labs on day of discharge: Laboratory Results - last 24 hr 10/10/24 10/10/24 11:09 11:50 WBC 3.6 L RBC 4.23 Hgb 12.4 Hct 37.0 MCV 87.5 MCH 29.3 MCHC 33.5 RDW 13.8 Plt Count 310 MPV 10.3 Immature Gran % (Auto) 0.3 Neut % (Auto) 38.1 L Lymph % (Auto) 33.9 [place] % (Auto) 19.3 H Eos % (Auto) 8.1 H Baso % (Auto) 0.3 Lymph # (Auto) 1.2 [place] # (Auto) 0.7 Eos # (Auto) 0.3 Baso # (Auto) 0.0 Abs Immat Gran (auto) 0.01 Absolute Neuts (auto) 1.4 L Absolute Nucleated RBC 0.000 Nucleated RBC % (auto) 0.0 Sodium 140 Potassium 3.9 Chloride 110 H Carbon Dioxide 23 Anion Gap 11 L BUN 7 L Creatinine 0.87 Estim Creat Clear Calc 71.0 Estimated GFR > 60 Random Glucose 79 Calcium 9.6 Magnesium 1.9 Total Bilirubin 0.3 AST 23 ALT 16 Alkaline Phosphatase 73 Total Protein 8.1 H Albumin 4.3 Influenza Type A (PCR) NEGATIVE Influenza Type B (PCR) NEGATIVE RSV RNA Qual (PCR) POSITIVE A SARS-CoV-2 RNA (RT-PCR) NEGATIVE Discharge Plan Discharge Anticipated Discharge Date/Time: 10/11/24 11:00 Patient Disposition: Home, Self-Care Discharge Diagnosis: asthma exacerbation due to RSV Referrals: Jennifer Bean MD [Primary Care Provider] - 1 Week Discharge Medications: New albuterol sulfate 2.5 mg /3 mL (0.083 %) solution for nebulization 2.5 mg inhalation Q4-6H PRN (Reason: shortness of breath or wheezing) Qty: 75 0RF prednisone 10 mg tablet 10 mg PO DIRECTED Qty: 18 0RF Rx Instructions: see taper instructions 30mg (3 tabs) x 3 days, then 20mg (2 tabs) x 3 days, then 10mg (1 tab) x 3 days benzonatate 100 mg capsule 100 mg PO TID PRN (Reason: cough) Qty: 20 0RF Continued (DME) nebulizers [AeroEclipse II Nebulizer] Misc See Rx Instructions .Route Qty: 1 0RF Rx Instructions: As directed cholecalciferol (vitamin D3) 25 mcg (1,000 unit) capsule 25 mcg PO DAILY 90 Days Qty: 90 1RF cyclobenzaprine 5 mg tablet 5 mg PO TID PRN (Reason: Muscle Pain) 30 Days Qty: 90 0RF albuterol sulfate [Ventolin HFA] 90 mcg/actuation HFA aerosol inhaler 2 puff inhalation Q6H PRN (Reason: shortness of breath or wheezing) 30 Days Qty: 8 1RF ibuprofen 200 mg Tablet 400 mg PO Q8H PRN (Reason: Pain) diphenhydramine HCl [Benadryl] 25 mg capsule 25 mg PO Q8H PRN (Reason: Allergy Symptoms) epinephrine [EpiPen 2-Capo] 0.3 mg/0.3 mL auto-injector 0.3 mg IM Q4H PRN (Reason: anaphylaxis) 30 Days Qty: 2 0RF meclizine 25 mg tablet 25 mg PO TID PRN (Reason: dizziness) 30 Days Qty: 90 2RF azithromycin 250 mg tablet 250 mg PO DAILY 5 Days Qty: 6 0RF Rx Instructions: END DATE: 10/12/24 Discharge Orders: Discharge Order (Routine); Ordered 10/11/24 Ordered By: Marnie Stephen Activity on Discharge: As tolerated Stand Alone Forms: Patient Portal Discharge page, Work/School Release Print Language: Citizen Of [place] Care Plan Goals: see below Health Concerns: asthma exacerbation due to RSV Plan of Treatment: complete course of steroids as prescribed use inhaler or nebulizer q4-6 hours return with any new or worsening symptoms Assessment: see discharge summary Patient Instructions: Respiratory Syncytial Virus (ED), Asthma (DC)
--- NOTE | 2024-10-11 12:20 | MHC.CM.PN ---
pt left prior to being seen by cm pt dcd home self care
== END 2024-10-11 11:27 | disposition home or self-care (01) ==
LOC: HO.ED 15:27 → HO.EDOVER 15:49 → HO.S3 16:00
PROVIDERS: Registered Nurse Emergency; Admitting Provider Physician Assistant Medical; Emergency Provider Emergency Medicine; PCP Internal Medicine; Visit Provider Physician Assistant Medical
DX: J45.901 Unspecified asthma with (acute) exacerbation (principal); B97.4 Respiratory syncytial virus as the cause of diseases classified elsewhere; R06.02 Shortness of breath; R05.9 Cough, unspecified; I10 Essential (primary) hypertension; Z03.818 Encounter for observation for suspected exposure to other biological agents ruled out
CPT/HCPCS: 0241U; 36415; 71046; 80053; 83735; 85025; 94640; 96365; 96366; 96375; 96376; 99221; 99285; J2919; J3475

== ENCOUNTER → 2024-10-10 11:35 | Outpatient (BNV) | payer BC, SELFPAY | PROVIDERS: Emergency Provider Emergency Medicine; PCP Internal Medicine; Visit Provider Specialist | DX: R05.9 Cough, unspecified (principal) | CPT/HCPCS: 71046 ==

== ENCOUNTER → 2024-10-10 15:33 | Outpatient (BNV) | payer BC, SELFPAY | PROVIDERS: Admitting Provider Physician Assistant Medical; Emergency Provider Emergency Medicine; PCP Internal Medicine; Visit Provider Physician Assistant Medical | DX: J45.901 Unspecified asthma with (acute) exacerbation (principal); B97.4 Respiratory syncytial virus as the cause of diseases classified elsewhere | CPT/HCPCS: 99223 ==

== ENCOUNTER 2024-10-16 15:40 | Outpatient (AMB) | payer BC, SELFPAY ==
--- NOTE | 2024-10-16 15:52 | MHC.PC.OV ---
Vital Signs 10/16/24 15:54 Height 5 ft 4 in Weight 146 lb 8 oz BMI 25.1 BP 130/80 Blood Pressure Location Lt brachial Position Sitting Pulse 70 Pulse Source Pulse Oximeter Temp 97.7 F Temp Source Skin Pulse Oximetry (%) 96 Oxygen Delivery Method Room Air Intake Visit Reasons: TCM [facility] asthma/RSV 10/11 Intake Note: Patient is here for hospital discharge and TCM follow up. Patient was discharged from [facility] on 10/11/24. Social Media Job Titles Required: No Remelt Worker: Not Required per policy Accompanied by: Self / Same As Patient Allergies apple Adverse Reaction (Severe, Verified 10/16/24 15:54) Hives oranges Allergy (Unknown, Uncoded 10/16/24 15:54) rash penicillin Allergy (Unknown, Uncoded 10/16/24 15:54) rash Tobacco use date assessed: 10/16/24 Dental Screening Dental Screen Date: 10/08/24 HPI TCM TCM Information Date of Discharge 10/11/24 Discharged From [facility] Interactive Contact Date (Reference documentation from this date) 10/12/24 HPI Comments History of Present Illness Details 54 y/o female patient who presents to the clinic today for TCM. She was admitted at [facility] on 10/10/24 and discharged home 10/11/24 due to Asthma exacerbation from RSV infection. Today c/o persistent cough that keeps her up at night. Denies fevers, chills, SOB, wheezing or chest pains. She has been using her Rescue inhaler and giving herself breathing Neb treatments PRN. COUNTS INCLUDE 234 BEDS AT THE [facility] Medical History Murmur Leukopenia Chronic fatigue Vertigo Scoliosis Mild persistent asthma Surgical History History of tubal ligation H/O: hysterectomy Family History Mother Diabetes Stroke Heart attack Father Heart attack Sister Breast cancer, Onset Age: 56 Sister Brain cancer Skin cancer Brother Prostate cancer Sister Primary cancer of bone marrow Social History Household Members: None Housing: House Are you a primary pharmacist critical care to a significant other at home: Yes (sister) Do you presently have visiting nurse or other home services: No Alcohol intake: current Alcohol intake frequency: a few times a month Alcohol type: wine Patient Tobacco Use Status: Never used Tobacco e-Cigarette/Vaping Use: Never Used Second Hand Smoke Exposure: No service: No Current occupational status: employed 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 Lamont Hirsch, Kathi Sanders, Dale Crenshaw and colleagues, with an educational antoine from [employer]. Review of Systems Const All systems reviewed & are unremarkable except as noted in HPI and below Physical exam (Primary Care) Vital Signs: Last Vital Signs Temp 97.7 F 10/16/24 15:54 Pulse 70 10/16/24 15:54 BP 130/80 10/16/24 15:54 Pulse Ox 96 10/16/24 15:54 Oxygen Delivery Method Room Air 10/16/24 15:54 BMI result Body Mass Index 25.1 Tobacco/Smoking Status: Tobacco use Status Tobacco use date assessed 10/16/24 10/16/24 15:59 Patient Tobacco Use Status Never used Tobacco 10/16/24 15:59 e-Cigarette/Vaping Use Never Used 10/16/24 15:59 Thrive Assessment: Date of Thrive Assessment Date Thrive assessed 10/08/24 10/16/24 15:59 Const General: cooperative Orientation/consciousness: patient oriented x3 Resp Effort & Inspection: normal respiratory effort, able to speak in complete sentences and Actively coughing Auscultation: clear to auscultation bilaterally, no crackles, no rales, no rhonchi and no wheezes Cardio Heart sounds: S1 normal heart sound present and S2 normal heart sound present Skin General skin exam: no rashes or lesions noted Neuro General: patient oriented x3, gait normal and moves all extremities Psych Speech and movement: Normal speech and movement present Coding Level of Care Code TCM Mod MDM <= 7 Days Diagnoses Moderate persistent asthma with exacerbation J45.41 Asthma severity: moderate Asthma persistence: persistent Acute cough R05.1 Cough type: acute Time Spent (min) 20 Assessment & Plan Assessment & Plan (1) Asthma exacerbation: Code(s): J45.901 - Unspecified asthma with (acute) exacerbation Category: Medical Qualifiers: Asthma severity: moderate Asthma persistence: persistent Qualified Code(s): J45.41 - Moderate persistent asthma with (acute) exacerbation Plan: Stable, recovering well at home. (2) Cough: Code(s): R05.9 - Cough, unspecified Qualifiers: Cough type: acute Qualified Code(s): R05.1 - Acute cough Plan: Prescribed Cough Syrup and Tessalon pearls. Hydrate with warm fluids with honey. Medications: New codeine-guaifenesin 10-200 mg/5 mL 10 mL PO Q4-6H PRN 473 mL 0RF cough J45.901 - Unspecified asthma with (acute) exacerbation, R05.9 - Cough, unspecified Changed From benzonatate 100 mg PO TID PRN 20 caps 0RF cough R05.1 - Acute cough To benzonatate 200 mg (2 x 100 mg) PO TID PRN 60 caps 0RF cough R05.1 - Acute cough
[2024-10-16 15:54] VITALS: BP 130/80; PULSE 70; TEMP 36.5; O2SAT 96; BMI 25.1
== END 2024-10-16 16:40 | disposition home or self-care (01) ==
PROVIDERS: PCP Internal Medicine; Visit Provider Nurse Practitioner Family
DX: J45.41 Moderate persistent asthma with (acute) exacerbation (principal); R05.1 Acute cough

== ENCOUNTER → 2024-10-16 15:40 | Outpatient (BNVA) | payer BC, SELFPAY | PROVIDERS: PCP Internal Medicine; Visit Provider Nurse Practitioner Family ==

== ENCOUNTER 2024-11-02 16:36 | Outpatient (AMB) | payer BC, SELFPAY ==
--- NOTE | 2024-11-02 16:51 | MHC.PC.OV ---
Vital Signs 11/02/24 16:52 Height 5 ft 4 in Weight 148 lb BMI 25.4 BP 122/80 Blood Pressure Location Lt brachial Position Sitting Intake Visit Reasons: 6 Months F/U Intake Note: Patient here for a 6 month follow up Dent Remover Required: No Accompanied by: Self / Same As Patient Allergies apple Adverse Reaction (Severe, Verified 11/02/24 17:01) Hives oranges Allergy (Unknown, Uncoded 11/02/24 17:01) rash penicillin Allergy (Unknown, Uncoded 11/02/24 17:01) rash Medication List - Last Reconciled 11/02/24 by Jennifer Gonzalez MD albuterol sulfate 2.5 mg (3 mL) inhalation Q4-6H PRN benzonatate 200 mg (2 x 100 mg) PO TID PRN cholecalciferol (vitamin D3) 25 mcg PO DAILY 90 days codeine-guaifenesin 10-200 mg/5 mL 10 mL PO Q4-6H PRN cyclobenzaprine 5 mg PO TID PRN 30 days diphenhydramine HCl (Benadryl) 25 mg PO Q8H PRN epinephrine (EpiPen 2-Capo) 0.3 mg (0.3 mL) IM Q4H PRN 30 days ibuprofen 400 mg PO Q8H PRN meclizine 25 mg PO TID PRN 30 days nebulizers (AeroEclipse II Nebulizer) As directed prednisone 10 mg PO DIRECTED Ventolin HFA 90 mcg/actuation (albuterol sulfate) 2 puffs inhalation Q6H PRN 30 days NS Tobacco use date assessed: 10/16/24 Dental Screening Dental Screen Date: 11/02/24 Did you have a dental visit in the last 12 months?: Yes Did you have a dental problem in the last 6 months where you did not have access to dental care?: No Was dental information given to patient?: Patient has dentist HPI HPI Comments History of Present Illness Details The patient is a 54-year-old female presenting with insomnia and left shoulder pain. The insomnia has been persistent despite previous therapy attempts, which have not proven effective in improving sleep quality. The left shoulder pain has been described as significant and is interfering with the patient's daily activities and sleep. Although there is a history of possible musculoskeletal involvement, the specific etiology of the shoulder pain remains unclear. Unzh-slk-gjutbig medications and topicals like Voltaren gel have been partially helpful in managing discomfort. The patient also has allergies to apples, oranges, g penicillin, and reports symptoms consistent with seasonal allergic rhinitis. Prior diagnostic tests, such as echocardiogram, Holter monitoring, and MRI of the head, have been normal, aiming to rule out other potential contributing factors to her symptoms. She has also been having recurrent asthma attacks and used to follow with pulmonology but not anymore and I will refer her again. [facility] Medical History (Updated 11/02/24 @ 19:29 by Jennifer Gonzalez MD) Demyelinating disease Murmur Leukopenia Chronic fatigue Vertigo Scoliosis Mild persistent asthma Surgical History History of tubal ligation H/O: hysterectomy Family History Mother Diabetes Stroke Heart attack Father Heart attack Sister Breast cancer, Onset Age: 56 Sister Brain cancer Skin cancer Brother Prostate cancer Sister Primary cancer of bone marrow Social History Household Members: None Housing: House Are you a primary rn critical care to a significant other at home: Yes (sister) Do you presently have visiting nurse or other home services: No Alcohol intake: current Alcohol intake frequency: a few times a month Alcohol type: wine Patient Tobacco Use Status: Never used Tobacco e-Cigarette/Vaping Use: Never Used Second Hand Smoke Exposure: No service: No Current occupational status: employed 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 1. Little interest or pleasure in doing things: not at all 2. Feeling down, depressed, or hopeless: not at all 3. Trouble falling or staying asleep, or sleeping too much: not at all 4. Feeling tired or having little energy: not at all 5. Poor appetite or overeating: not at all 6. Feeling bad about yourself - or that you are a failure or have let yourself or your family down: not at all 7. Trouble concentrating on things, such as reading the newspaper or watching television: not at all 8. Moving or speaking so slowly that other people could have noticed. Or the opposite - being so fidgety or restless that you have been moving around a lot more than usual: not at all 9. Thoughts that you would be better off or of hurting yourself in some way: not at all Total score: 0 Depression Screening Interpretation: Negative Depression Screening Done: Yes 21889 - PHQ-9 Billing: Yes Source: Developed by Drs. Lamont Hirsch, Kathi Sanders, Dale Crenshaw and colleagues, with an educational antoine from [employer]. Thrive Questionnaire Date Thrive assessed: 11/02/24 I am a: Patient What is your living situation today?: I have a steady place to live Within the past 12 months, did the food you bought not last and you didn't have the money to get more?: Never true Within the past 12 months, did you worry whether your food would run out before you got money to buy more?: Never true Do you have trouble paying for medicines?: No Do you have trouble getting transportation to medical appointments?: No Do you have trouble paying your heating and electricity bill?: No Do you have trouble taking care of your child, family member or friend?: No Do you have trouble with day-to-day activities such as bathing, preparing meals, shopping, managing finances, etc.?: No Are you currently unemployed and looking for a job?: No Are you interested in more education?: No Please select the resources that you would like help with: None Currently or been in a relationship where the following occur: No concerns reported THRIVE Score: 0 AUDIT C Alcohol Use Questionnaire (AUDIT-C) 1. How often do you have a drink containing alcohol?: Monthly or less 2. How many drinks containing alcohol do you have on a typical day when you are drinking?: 1 or 2 3. How often do you have six or more drinks on one occasion?: Never Total Score: 1 Score Reviewed/Action Taken: No LAYLA-7 AMB Questionnaire LAYLA-7 Date LAYLA - 7 assessed: 11/02/24 Feeling nervous, anxious, or on edge: 0 = Not at all Not being able to stop or control worryin = Not at all Worrying too much about different things: 0 = Not at all Trouble relaxin = Not at all Being so restless that it is hard to sit still: 0 = Not at all Becoming easily annoyed or irritable: 0 = Not at all Feeling afraid as if something awful might happen: 0 = Not at all Total LAYLA-7 score (0-4 normal; 5-9 mild; 10-14 moderate; 15-21 severe): 0 Source: Developed by Drs. Lamont Hirsch, Kathi Sanders, Dale Crenshaw and colleagues, with an educational antoine from [employer]. Review of Systems Const All systems reviewed & are unremarkable except as noted in HPI and below Card Denies chest pain at rest, Denies chest pain with activity, Denies edema, Denies irregular heart rhythm, Denies claudication, Denies dyspnea, Denies dyspnea on exertion, Denies orthopnea, Denies paroxysmal nocturnal dyspnea and Denies slow heart rate Resp Denies cough, Denies dyspnea and Denies dyspnea on exertion GI Denies abdominal pain, Denies change in bowel habits, Denies excessive flatus, Denies nausea and Denies vomiting Denies urinary incontinence, Denies urinary hesitancy and Denies urinary urgency Musc Denies abnormal gait, Denies atrophy, Denies deformity, Reports arthralgias and Denies limited range of motion Skin/Breast Denies bleeding lesions, Denies changing lesions and Denies rash Neuro Denies abnormal gait, Denies behavioral changes and Denies lack of coordination Psych Denies behavioral changes Physical exam (Primary Care) Vital Signs: Last Vital Signs BP 122/80 11/02/24 16:52 BMI result Body Mass Index 25.4 Tobacco/Smoking Status: Tobacco use Status Tobacco use date assessed 10/16/24 11/02/24 16:57 Patient Tobacco Use Status Never used Tobacco 11/02/24 16:57 e-Cigarette/Vaping Use Never Used 11/02/24 16:57 PHQ-9: PHQ-9 Score PHQ-9: Total score 0 11/02/24 17:02 Depression Screening Interpretation: Negative Thrive Assessment: Date of Thrive Assessment Date Thrive assessed 11/02/24 11/02/24 16:57 Currently or been in a relationship where the following occur: No concerns reported Resp Effort & Inspection: normal respiratory effort Auscultation: clear to auscultation bilaterally Cardio Jugular venous distension: no JVD Rate: regular rate Rhythm: regular rhythm Heart sounds: S1 normal heart sound present and S2 normal heart sound present Extrem General: Yes full ROM Coding Level of Care Code Est Pt Level 3 (24012) Complex EM visit Add On G2211 Diagnoses Moderate persistent asthma J45.40 Left shoulder pain M25.512 Additional Codes PHQ-9 - 86658 - PHQ-9 Billing: Yes ([id number]) Time Spent (min) 18 Assessment & Plan Assessment & Plan (1) Moderate persistent asthma: Code(s): J45.40 - Moderate persistent asthma, uncomplicated Category: Medical (2) Left shoulder pain: Code(s): M25.512 - Pain in left shoulder Category: Medical Plan - Continue using Voltaren topical gel for the management of left shoulder pain as needed. - Discontinue use of prednisone, as treatment has been completed. - Evaluation for orthopedic referral for further assessment of shoulder pain. - Plan to address insomnia and explore potential non-pharmacological interventions further. Patient was informed and verbally consented to the use of an ambient scribe for clinic note documentation during this visit. During this visit, I reviewed the patient's primary concerns, which are insomnia and left shoulder pain. We discussed the limited effectiveness of past therapies for her insomnia and explored the option of continuing non-pharmacological interventions. Regarding her shoulder pain, I suggested continuing with Voltaren gel and considering further orthopedic evaluation should the pain persist or worsen. The patient's allergies, particularly to penicillin and certain foods like apples and oranges, informed our discussions about therapeutic options, particularly regarding medication choices. I have advised addressing the seasonal allergic rhinitis as part of her comprehensive management plan. Orders: Orders XR shoulder LT min 2V Today M25.512 - Pain in left shoulder Referrals Orthopedics Referral M25.512 - Pain in left shoulder Pulmonology Referral J45.40 - Moderate persistent asthma, uncomplicated Medications: New diclofenac sodium 1% (Arthritis Pain (diclofenac)) apply to single elbow, wrist or hand; for hand includes palm/fingers/back of hand 2 grams topical QID 100 grams 0RF 30 days M25.512 - Pain in left shoulder Patient Instructions: - Continue using Voltaren gel as needed for shoulder pain. - Do not use any medications containing penicillin. - Follow up as planned for further evaluation of shoulder pain. - Monitor any new symptoms related to seasonal allergies and manage with antihistamines if necessary.
[2024-11-02 16:52] VITALS: BP 122/80; BMI 25.4
== END 2024-11-02 17:11 | disposition home or self-care (01) ==
PROVIDERS: PCP Internal Medicine; Visit Provider Internal Medicine
DX: J45.40 Moderate persistent asthma, uncomplicated (principal); M25.512 Pain in left shoulder

== ENCOUNTER → 2024-11-02 16:36 | Outpatient (BNVA) | payer BC, SELFPAY | PROVIDERS: PCP Internal Medicine; Visit Provider Internal Medicine | DX: J45.40 Moderate persistent asthma, uncomplicated (principal); M25.512 Pain in left shoulder; G47.00 Insomnia, unspecified | CPT/HCPCS: 96127 ==

== ENCOUNTER 2024-11-06 13:20 | Outpatient (AMB) ==
--- NOTE | 2024-11-06 13:20 | MHC.OFFVIS ---
Vital Signs 11/06/24 13:21 Height 5 ft 4 in Weight 148 lb 12.992 oz BMI 25.5 BP 102/68 Blood Pressure Location Rt brachial Position Sitting Pulse 88 Pulse Source Pulse Oximeter Pulse Oximetry (%) 98 Oxygen Delivery Method Room Air Intake Visit Reasons: Asthma Allergies apple Adverse Reaction (Severe, Verified 11/06/24 13:23) Hives oranges Allergy (Unknown, Uncoded 11/06/24 13:23) rash penicillin Allergy (Unknown, Uncoded 11/06/24 13:23) rash HPI Comments Details: The patient is a 54 year woman with known history of mild intermittent asthma. Apparently she was in her usual state health until the fall 2022 when she started developing worsening respiratory symptoms. She has been requiring her rescue inhaler more often. She also has a nebulizer. The patient ultimately developed COVID-19 infection in August 2023. during that time she also required any inhaler more often having some shortness of breath. Now she is back to her baseline. The patient has not had any pulmonary function studies. She did have a chest x-ray back in the fallJune 2023 which I personally reviewed demonstrating no acute disease. The patient does carry an EpiPen. She has significant allergies to oranges. She has had allergy testing in the past also has some environmental allergies but not very significant and now during the season. Typically more during the spring due to pollen and grasses. Right now she is doing well. On examination the patient did have very mild systolic ejection murmur best heard at the right sternal border could be a simple flow murmur. The patient has not had an echocardiogram at this point she is doing clinically well. The patient will follow-up with primary care continue to be monitored. If the murmur still present would be reasonable to request an echocardiogram. 11/06/2024 the patient is here for a pulmonary follow-up visit. The patient is feeling better. She did have RSV and did have significant bronchiolitis and asthma exacerbation. She required high doses of prednisone and now she is back to her baseline. She does have a rescue inhaler she has not required it. She did have a chest x-ray which I personally reviewed. No evidence of any acute process. Normal lung expansion. As far as blood work the patient did have a CBC where she had some degree of leukopenia. She will follow-up with the primary care doctor about that. Right now she is doing well will follow-up in a year's time if she develops any worsening symptoms she will call. [facility] Medical History (Updated 11/08/24 @ 19:56 by Ishmael Contreras MD) Demyelinating disease Murmur Leukopenia Chronic fatigue Vertigo Scoliosis Mild persistent asthma Surgical History History of tubal ligation H/O: hysterectomy Family History Mother Diabetes Stroke Heart attack Father Heart attack Sister Breast cancer, Onset Age: 56 Sister Brain cancer Skin cancer Brother Prostate cancer Sister Primary cancer of bone marrow Social History Household Members: None Housing: House Are you a primary lead caregiver to a significant other at home: Yes (sister) Do you presently have visiting nurse or other home services: No Alcohol intake: current Alcohol intake frequency: a few times a month Alcohol type: wine Patient Tobacco Use Status: Never used Tobacco e-Cigarette/Vaping Use: Never Used Second Hand Smoke Exposure: No service: No Current occupational status: employed 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 Current occupational exposures/hazards: No Cognitive needs: No Hearing needs: No Vision needs: Yes Female Reproductive History Menstrual Age of Menarche: 14 Review of Systems Const All systems reviewed & are unremarkable except as noted in HPI and below Eyes Reports no additional complaints, Denies change in vision and Denies other visual disturbances Card Denies chest pain at rest, Denies chest pain with activity, Denies edema, Denies irregular heart rhythm, Denies claudication, Denies dyspnea, Denies dyspnea on exertion, Denies orthopnea, Denies paroxysmal nocturnal dyspnea and Denies slow heart rate Resp Reports cough, Denies dyspnea, Denies dyspnea on exertion and Reports wheezing GI Denies abdominal pain, Denies change in bowel habits, Denies excessive flatus, Denies nausea and Denies vomiting Denies urinary incontinence, Denies urinary hesitancy and Denies urinary urgency Musc Denies abnormal gait, Reports myalgias, Denies atrophy, Denies deformity and Denies limited range of motion Skin/Breast Denies bleeding lesions, Denies changing lesions and Denies rash Neuro Denies abnormal gait, Denies behavioral changes and Denies lack of coordination Psych Denies behavioral changes Aller/Immun Reports wheezing Physical Exam Vital Signs: Last Vital Signs Pulse 88 11/06/24 13:21 BP 102/68 11/06/24 13:21 Pulse Ox 98 11/06/24 13:21 Oxygen Delivery Method Room Air 11/06/24 13:21 BMI result Body Mass Index 25.5 Const General: comfortable HEENT Head: Yes normocephalic Neck Neck: Yes supple Chest Chest palpation & inspection: normal inspection of the chest Resp Effort & Inspection: normal respiratory effort Auscultation: clear to auscultation bilaterally Cardio Heart sounds: S1 normal heart sound present, S2 normal heart sound present and Murmur heart sound present systolic early, II/ and at the right sternal border GI Palpation (GI): Soft to palpation Skin General skin exam: no rashes or lesions noted Extrem General: Yes no clubbing, cyanosis or edema Assessment & Plan Assessment & Plan (1) Mild asthma: Code(s): J45.909 - Unspecified asthma, uncomplicated Category: Medical Qualifiers: Asthma persistence: intermittent Asthma complication type: uncomplicated Qualified Code(s): J45.20 - Mild intermittent asthma, uncomplicated (2) RSV infection: Comment: resolved Code(s): B33.8 - Other specified viral diseases Category: Medical Qualifiers: RSV infection type: unspecified Qualified Code(s): B33.8 - Other specified viral diseases Plan SARABJIT as needed no need for maintenance inhalers at this time F/U 12 months Coding Level of Care Code Est Pt Level 4 (19578) Diagnoses Mild intermittent asthma without complication J45.20 Asthma persistence: intermittent Asthma complication type: uncomplicated Infection due to respiratory syncytial virus (RSV), unspecified infection type B33.8 RSV infection type: unspecified Time Spent (min) 16
== END 2024-11-06 14:19 | disposition home or self-care (01) ==
PROVIDERS: PCP Internal Medicine; Visit Provider Hospitalist
DX: J45.20 Mild intermittent asthma, uncomplicated (principal); B33.8 Other specified viral diseases
CPT/HCPCS: 99214

== ENCOUNTER → 2024-11-06 13:20 | Outpatient (BNVA) | payer BC, SELFPAY | PROVIDERS: PCP Internal Medicine; Visit Provider Hospitalist ==

== ENCOUNTER 2024-11-10 07:07 | Outpatient (REF) | payer BC, SELFPAY | END 2024-11-10 07:08 | disposition home or self-care (01) | LOC: HO.XRAY 07:07 | PROVIDERS: PCP Internal Medicine; Visit Provider Internal Medicine | DX: M25.512 Pain in left shoulder (principal) | CPT/HCPCS: 73030 ==

== ENCOUNTER → 2024-11-10 07:36 | Outpatient (BNV) | payer BC, SELFPAY | PROVIDERS: PCP Internal Medicine; Visit Provider Radiology Diagnostic Radiology | DX: M25.512 Pain in left shoulder (principal) | CPT/HCPCS: 73030 ==

== ENCOUNTER 2024-11-19 14:55 | Outpatient (AMB) | payer BC, SELFPAY ==
--- NOTE | 2024-11-19 14:59 | A.OFFVIS_ITS ---
Vital Signs 11/19/24 15:10 Height 5 ft 4 in Weight 147 lb 4 oz BMI 25.3 BP 135/74 Blood Pressure Location Lt brachial Position Sitting Pulse 74 Intake Visit Reasons: 6 month breast Intake Note: Patient is seen in office for 6 month follow up visit, breast exam. 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 She was identified as being at high risk for breast cancer due to her family history with a Tyrer-Cuzick remaining lifetime risk of breast cancer calculated at 20.1%. She is 2 para 2, did not breast feed her children. She underwent a hysterectomy without oophorectomy at the age of 38. Her most recent breast MRI performed on 07/07/2024 performed at [facility] reveals no MR evidence of malignancy bilaterally (BI-RADS 2). Her most recent mammogram of 11/27/2023 revealed no mammographic evidence of malignancy (BI-RADS 1). She is scheduled for follow-up mammogram on 12/02/2024. She denies any new breast symptoms. [facility] Medical History Demyelinating disease Murmur Leukopenia Chronic fatigue Vertigo Scoliosis Mild persistent asthma Surgical History History of tubal ligation H/O: hysterectomy Family History Mother Diabetes Stroke Heart attack Father Heart attack Sister Breast cancer, Onset Age: 56 Sister Brain cancer Skin cancer Brother Prostate cancer Sister Primary cancer of bone marrow Social History Household Members: None Housing: House Are you a primary housekeeper caregiver to a significant other at home: Yes (sister) Do you presently have visiting nurse or other home services: No Alcohol intake: current Alcohol intake frequency: a few times a month Alcohol type: wine Patient Tobacco Use Status: Never used Tobacco e-Cigarette/Vaping Use: Never Used Second Hand Smoke Exposure: No service: No Current occupational status: employed 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[place] [employer] [facility] [employer] [facility] [place]ology Current occupational exposures/hazards: No Cognitive needs: No Hearing needs: No Vision needs: Yes Female Reproductive History Menstrual Age of Menarche: 14 Review of Systems Const All systems reviewed & are unremarkable except as noted in HPI and below Denies nipple discharge Skin/Breast Denies breast swelling, Denies breast skin changes, Denies breast pain, Denies breast mass and Denies nipple discharge Derrick/Lymph Denies lymphadenopathy Physical Exam Vital Signs: Last Vital Signs Pulse 74 11/19/24 15:10 BP 135/74 11/19/24 15:10 BMI result Body Mass Index 25.3 Const General: cooperative and no acute distress Nutritional Appearance: well nourished Orientation/consciousness: patient oriented x3 Limitations: no limitations HEENT Head: Yes normocephalic and Yes atraumatic Ears: hearing grossly normal bilaterally Chest Other: Bilateral very dense breast tissue especially in the upper quadrants. Left breast: No skin change, no nipple retraction, no nipple discharge, no palpable mass, no enlarged lymph nodes. Right breast: No skin change, no nipple retraction, no nipple discharge, no palpable mass, no enlarged lymph nodes Resp Effort & Inspection: normal respiratory effort, no audible wheezes, no cough and no respiratory distress Cardio Jugular venous distension: no JVD GI Inspection: Yes normal to inspection Skin Other: Warm, dry, no rash Neuro General: patient oriented x3 Extrem General: Yes no clubbing, cyanosis or edema Assessment & Plan Assessment & Plan (1) At high risk for breast cancer: Code(s): Z91.89 - Other specified personal risk factors, not elsewhere classified Category: Medical (2) Family history of breast cancer: Code(s): Z80.3 - Family history of malignant neoplasm of breast Category: Medical Plan 54-year-old female patient determined to be at high risk for breast cancer due to family history presenting for routine breast examination. Examination today revealed no suspicious findings in either breast. Her most recent mammogram of 11/27/2023 revealed no mammographic evidence of malignancy (BI-RADS 1). Her most recent MRI of 07/07/2024 also revealed no MR specific evidence of malignancy (BI- RADS 2 bilaterally). She will be due for an MRI in June 2025. I recommended follow-up examination in approximately 6 months. She is scheduled for an annual mammogram on 12/02/2024. She is welcome to call sooner for any new concerns. Coding Level of Care Code Est Pt Level 3 (15120) Complex EM visit Add On G2211 Diagnoses At high risk for breast cancer Z91.89 Family history of breast cancer Z80.3
[2024-11-19 15:10] VITALS: BP 135/74; PULSE 74; BMI 25.3
== END 2024-11-19 15:20 | disposition home or self-care (01) ==
PROVIDERS: PCP Internal Medicine; Visit Provider Surgery
DX: Z91.89 Other specified personal risk factors, not elsewhere classified (principal); Z80.3 Family history of malignant neoplasm of breast
CPT/HCPCS: 99213

== ENCOUNTER → 2024-11-19 14:55 | Outpatient (BNVA) | payer BC, SELFPAY | PROVIDERS: PCP Internal Medicine; Visit Provider Surgery ==

== ENCOUNTER 2024-12-02 14:28 | Outpatient (REF) | payer BC, SELFPAY | END 2024-12-02 14:29 | disposition home or self-care (01) | LOC: HO.MAMMO 14:28 | PROVIDERS: PCP Internal Medicine; Visit Provider Internal Medicine | DX: Z12.31 Encounter for screening mammogram for malignant neoplasm of breast (principal) | CPT/HCPCS: 77063; 77067 ==

== ENCOUNTER → 2024-12-02 14:45 | Outpatient (BNV) | payer BC, SELFPAY | PROVIDERS: PCP Internal Medicine; Visit Provider Internal Medicine | DX: Z12.31 Encounter for screening mammogram for malignant neoplasm of breast (principal) | CPT/HCPCS: 77063; 77067 ==

== ENCOUNTER 2024-12-08 13:02 | Outpatient (AMB) | payer BC, SELFPAY ==
--- NOTE | 2024-12-08 13:13 | A.OFFVIS_ITS ---
Vital Signs 12/08/24 13:14 Height 5 ft 4 in Weight 147 lb BMI 25.2 Intake Visit Reasons: New prob-Pain in left shoulder Intake Note: Karmen is a 54 year old right hand dominant female who presents today for an evaluation of left shoulder pain. Patient was seen by her PCP and was referred to orthopedics. Patient discomfort is interfering with the patient's daily activities and sleep. Patient reports her pain is worse at night time, feels as if she has a bone that feels like it protruding. States its tender to touch and ROM is very painful. Denies injury, injection or P.T. Allergies apple Adverse Reaction (Severe, Verified 12/08/24 13:19) Hives oranges Allergy (Unknown, Uncoded 12/08/24 13:19) rash penicillin Allergy (Unknown, Uncoded 12/08/24 13:19) rash Medication List - Last Reconciled 12/08/24 by Karly Amor PA-C albuterol sulfate 2.5 mg (3 mL) inhalation Q4-6H PRN benzonatate 200 mg (2 x 100 mg) PO TID PRN cholecalciferol (vitamin D3) 25 mcg PO DAILY 90 days codeine-guaifenesin 10-200 mg/5 mL 10 mL PO Q4-6H PRN cyclobenzaprine 5 mg PO TID PRN 30 days diclofenac sodium 1% (Arthritis Pain (diclofenac)) 2 grams topical QID 30 days diphenhydramine HCl (Benadryl) 25 mg PO Q8H PRN epinephrine (EpiPen 2-Capo) 0.3 mg (0.3 mL) IM Q4H PRN 30 days ibuprofen 400 mg PO Q8H PRN meclizine 25 mg PO TID PRN 30 days nebulizers (AeroEclipse II Nebulizer) As directed Ventolin HFA 90 mcg/actuation (albuterol sulfate) 2 puffs inhalation Q6H PRN 30 days NS HPI HPI New prob-Pain in left shoulder: Details: 54 yo female presents to the office today for left shoulder pain. 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 She denies injury. Denies numbness and tingling. [facility] Medical History Demyelinating disease Murmur Leukopenia Chronic fatigue Vertigo Scoliosis Mild persistent asthma Surgical History History of tubal ligation H/O: hysterectomy Family History Mother Diabetes Stroke Heart attack Father Heart attack Sister Breast cancer, Onset Age: 56 Sister Brain cancer Skin cancer Brother Prostate cancer Sister Primary cancer of bone marrow Social History Household Members: None Housing: House Are you a primary day care provider to a significant other at home: Yes (sister) Do you presently have visiting nurse or other home services: No Alcohol intake: current Alcohol intake frequency: a few times a month Alcohol type: wine Patient Tobacco Use Status: Never used Tobacco e-Cigarette/Vaping Use: Never Used Second Hand Smoke Exposure: No service: No Current occupational status: employed 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 Current occupational exposures/hazards: No Cognitive needs: No Hearing needs: No Vision needs: Yes Female Reproductive History Menstrual Age of Menarche: 14 Review of Systems Const All systems reviewed & are unremarkable except as noted in HPI and below Physical Exam Vital Signs: BMI result Body Mass Index 25.2 Const General: cooperative and no acute distress Orientation/consciousness: patient oriented x3 Resp Effort & Inspection: normal respiratory effort and able to speak in complete sentences Cardio Peripheral pulses: Peripheral pulses 2+ throughout Neuro General: patient oriented x3 Extrem Other: Left shoulder normal to inspection. She has full range of motion in all planes. She has mild tenderness over the AC joint and a positive [place]'s. Results Reviewed Results Reviewed: XR shoulder LT min 2V IMPRESSION: Unremarkable examination of the left shoulder. Assessment & Plan Assessment & Plan (1) Subacromial bursitis of left shoulder joint: Code(s): M75.52 - Bursitis of left shoulder Category: Medical Plan: We discussed options today which include steroid injection which she would like to hold off on at this time. I did place an order for physical therapy to work on range of motion rotator cuff and periscapular stabilization. If symptoms persist or worsen she will contact our office otherwise follow up as needed. Orders: Orders PT Evaluation and Treatment Today M75.52 - Bursitis of left shoulder Coding Level of Care Code Est Pt Level 3 (49694) Complex EM visit Add On G2211 Diagnoses Subacromial bursitis of left shoulder joint M75.52
[2024-12-08 13:14] VITALS: BMI 25.2
== END 2024-12-08 13:50 | disposition home or self-care (01) ==
LOC: HO.HOS 13:03
PROVIDERS: PCP Internal Medicine; Visit Provider Physician Assistant
DX: M75.52 Bursitis of left shoulder (principal)
CPT/HCPCS: 99213

== ENCOUNTER → 2024-12-08 13:02 | Outpatient (BNVA) | payer BC, SELFPAY | PROVIDERS: PCP Internal Medicine; Visit Provider Physician Assistant ==

== ENCOUNTER 2024-12-10 15:32 | Outpatient (AMB) | payer BC, SELFPAY ==
--- NOTE | 2024-12-10 15:36 | A.OFFVIS_ITS ---
Intake Visit Reasons: Left Shoulder Injection Intake Note: Karmen is a 54 year old female who presents today for a left shoulder injection. Allergies apple Adverse Reaction (Severe, Verified 12/08/24 13:19) Hives oranges Allergy (Unknown, Uncoded 12/08/24 13:19) rash penicillin Allergy (Unknown, Uncoded 12/08/24 13:19) rash Medication List - Last Reconciled 12/10/24 by Karly Amor PA-C albuterol sulfate 2.5 mg (3 mL) inhalation Q4-6H PRN benzonatate 200 mg (2 x 100 mg) PO TID PRN cholecalciferol (vitamin D3) 25 mcg PO DAILY 90 days codeine-guaifenesin 10-200 mg/5 mL 10 mL PO Q4-6H PRN cyclobenzaprine 5 mg PO TID PRN 30 days diclofenac sodium 1% (Arthritis Pain (diclofenac)) 2 grams topical QID 30 days diphenhydramine HCl (Benadryl) 25 mg PO Q8H PRN epinephrine (EpiPen 2-Capo) 0.3 mg (0.3 mL) IM Q4H PRN 30 days ibuprofen 400 mg PO Q8H PRN meclizine 25 mg PO TID PRN 30 days nebulizers (AeroEclipse II Nebulizer) As directed Ventolin HFA 90 mcg/actuation (albuterol sulfate) 2 puffs inhalation Q6H PRN 30 days NS HPI HPI Left Shoulder Injection: Details: 54-year-old female returns to the office today for a follow-up left shoulder. She is interested in proceeding with left shoulder steroid injection today. [facility] Medical History Demyelinating disease Murmur Leukopenia Chronic fatigue Vertigo Scoliosis Mild persistent asthma Surgical History History of tubal ligation H/O: hysterectomy Family History Mother Diabetes Stroke Heart attack Father Heart attack Sister Breast cancer, Onset Age: 56 Sister Brain cancer Skin cancer Brother Prostate cancer Sister Primary cancer of bone marrow Social History Household Members: None Housing: House Are you a primary health care coach to a significant other at home: Yes (sister) Do you presently have visiting nurse or other home services: No Alcohol intake: current Alcohol intake frequency: a few times a month Alcohol type: wine Patient Tobacco Use Status: Never used Tobacco e-Cigarette/Vaping Use: Never Used Second Hand Smoke Exposure: No service: No Current occupational status: employed 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 Current occupational exposures/hazards: No Cognitive needs: No Hearing needs: No Vision needs: Yes Female Reproductive History Menstrual Age of Menarche: 14 Review of Systems Const All systems reviewed & are unremarkable except as noted in HPI and below Physical Exam Const General: cooperative and no acute distress Orientation/consciousness: patient oriented x3 Resp Effort & Inspection: normal respiratory effort and able to speak in complete sentences Cardio Peripheral pulses: Peripheral pulses 2+ throughout Neuro General: patient oriented x3 Extrem Other: Left shoulder normal to inspection. She has full range of motion in all planes. She has mild tenderness over the AC joint and a positive [place]'s. Office Procedures AMB Joint Injection/Aspiration Joint Injection/Aspiration Primary Site: left shoulder Prep: site was prepped using aseptic technique, ethochloride spray was applied and injection warnings given Injected: 80 mg of, DepoMedrol, with 8 mL of, 1% plain lidocaine and in the subcromial space Approach Used: posterolateral Procedure: The patient tolerated the procedure well and there was some relief with the local anesthesia Coding 23555 - Glenohumeral/Tronchanteric Bursa/Intraarticular Procedure code (CPT) selection complete Assessment & Plan Assessment & Plan (1) Subacromial bursitis of left shoulder joint: Code(s): M75.52 - Bursitis of left shoulder Category: Medical Plan: We discussed options today, which include steroid injection. The patient did consent to move forward with the injection, which was tolerated well.? I recommended rest, ice and elevation and OTC antiinflammatories prn for discomfort. If symptoms persist over the next 6-8 weeks, they will contact our office, otherwise, prn Coding Level of Care Code Est Pt Level 3 (23686) Complex EM visit Add On G2211 Diagnoses Subacromial bursitis of left shoulder joint M75.52 CPT Codes Coding - Joint 7: 47828 - Glenohumeral/Tronchanteric Bursa/Intraarticular ([id number])
== END 2024-12-10 15:41 | disposition home or self-care (01) ==
LOC: HO.HOS 15:32
PROVIDERS: PCP Internal Medicine; Visit Provider Physician Assistant
DX: M75.52 Bursitis of left shoulder (principal)
CPT/HCPCS: 20610; 99213

== ENCOUNTER → 2024-12-10 15:32 | Outpatient (BNVA) | payer BC, SELFPAY | PROVIDERS: PCP Internal Medicine; Visit Provider Physician Assistant | DX: M75.52 Bursitis of left shoulder (principal) | CPT/HCPCS: 20610; J1010; J2003 ==

== ENCOUNTER 2025-05-06 06:54 | Outpatient (REF) | payer BC, SELFPAY ==
[2025-05-06 07:02] LABS: MANUAL DIFF FLAG NO
[2025-05-06 07:47] LABS: Hematocrit 35.9 % (37.0-47.0); Hemoglobin 11.9 g/dl (12.0-16.0); Imm Gran Abs Auto 0.02 X10*3/uL (0.00-0.03); Imm Gran Pct Auto 0.4 % (0.0-0.4); Lymphocytes Absolute Auto 1.8 X10*3/uL (1.2-4.9); Mean Corpuscular HGB Conc 33.1 g/dl (31.0-35.0); Mean Corpuscular Hemoglobin 29.2 pg (27.0-33.0); Mean Corpuscular Volume 88.2 fL (80.0-98.0); NRBC Abs Auto 0.000 X10*3/uL (0.0-0.012); NRBC Pct Auto 0.0 /100WBC (0.0-0.2); Platelet Count 362 X10*3/uL (160-400); Red Blood Count 4.07 X10*6/uL (4.20-5.50); White Blood Count 4.9 X10*3/uL (4.8-10.8)
[2025-05-06 08:35] LABS: Alanine Aminotransferase 18 U/L (0-31); Albumin Level 4.5 g/dL (3.5-5.0); Alkaline Phosphatase 68 U/L (39-117); Anion Gap 10 (12-20); Aspartate Amino Transferase 21 U/L (5-31); Blood Urea Nitrogen 17 mg/dL (9-16); Calcium 9.1 mg/dL (8.4-10.2); Carbon Dioxide 28 mmol/L (22-29); Chloride 107 mmol/L (96-108); Cholesterol 212 mg/dL (<200); Estimated Glomerular Filt Rate > 60; HDL Cholesterol 85 mg/dL (>40); Potassium 4.0 mmol/L (3.3-5.1); Sodium 141 mmol/L (135-145); Total Protein 7.5 g/dL (6.5-8.0); Triglycerides 52 mg/dL (<150)
== END 2025-05-06 06:55 | disposition home or self-care (01) ==
LOC: HO.LAB 06:54
PROVIDERS: PCP Internal Medicine; Visit Provider Internal Medicine
DX: I10 Essential (primary) hypertension (principal); E78.5 Hyperlipidemia, unspecified; J45.909 Unspecified asthma, uncomplicated; E55.9 Vitamin D deficiency, unspecified
CPT/HCPCS: 36415; 80053; 80061; 82306; 85025

== ENCOUNTER 2025-05-11 16:02 | Outpatient (AMB) | payer BC, SELFPAY ==
--- NOTE | 2025-05-11 16:06 | A.OFFPC_ITS ---
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 Accompanied by: Self / Same As Patient Allergies apple Adverse Reaction (Severe, Verified 05/11/25 16:23) Hives oranges Allergy (Unknown, Uncoded 05/11/25 16:23) rash penicillin Allergy (Unknown, Uncoded 05/11/25 16:23) rash Medication List - Last Reconciled 05/11/25 by Jennifer Gonzalez MD albuterol sulfate 2.5 mg (3 mL) inhalation Q4-6H PRN benzonatate 200 mg (2 x 100 mg) PO TID PRN cholecalciferol (vitamin D3) 25 mcg PO DAILY 90 days codeine-guaifenesin 10-200 mg/5 mL 10 mL PO Q4-6H PRN cyclobenzaprine 5 mg PO TID PRN 30 days diclofenac sodium 1% (Arthritis Pain (diclofenac)) 2 grams topical QID 30 days diphenhydramine HCl (Benadryl) 25 mg PO Q8H PRN epinephrine (EpiPen 2-Capo) 0.3 mg (0.3 mL) IM Q4H PRN 30 days ibuprofen 400 mg PO Q8H PRN meclizine 25 mg PO TID PRN 30 days nebulizers (AeroEclipse II Nebulizer) As directed Ventolin HFA 90 mcg/actuation (albuterol sulfate) 2 puffs inhalation Q6H PRN 30 days NS Tobacco use date assessed: 05/11/25 Dental Screening Dental Screen Date: 05/11/25 Did you have a dental visit in the last 12 months?: No Did you have a dental problem in the last 6 months where you did not have access to dental care?: No Was dental information given to patient?: No HPI HPI Comments History of Present Illness Details Patient is here for physical exam. Tdap vaccines up-to-date. Had hysterectomy therefore no need for Pap smears. Colonoscopy done 2022. Complains of shortness on breath and some wheezing that started about 3-4 days ago with no fever. [facility] Medical History Demyelinating disease Murmur Leukopenia Chronic fatigue Vertigo Scoliosis Mild persistent asthma Surgical History History of tubal ligation H/O: hysterectomy Family History Mother Diabetes Stroke Heart attack Father Heart attack Sister Breast cancer, Onset Age: 56 Sister Brain cancer Skin cancer Brother Prostate cancer Sister Primary cancer of bone marrow Social History Household Members: None Housing: House Are you a primary daycare provider to a significant other at home: Yes (sister) Do you presently have visiting nurse or other home services: No Alcohol intake: current Alcohol intake frequency: a few times a month Alcohol type: wine Patient Tobacco Use Status: Never used Tobacco e-Cigarette/Vaping Use: Never Used Second Hand Smoke Exposure: No service: No Current occupational status: employed 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 Lamont Hirsch, Kathi Sanders, Dale Crenshaw and colleagues, with an educational antoine from [employer]. Review of Systems Const All systems reviewed & are unremarkable except as noted in HPI and below Card Denies chest pain at rest, Denies chest pain with activity, Denies edema, Denies irregular heart rhythm, Denies claudication, Denies dyspnea, Denies dyspnea on exertion, Denies orthopnea, Denies paroxysmal nocturnal dyspnea and Denies slow heart rate Resp Denies cough, Denies dyspnea and Denies dyspnea on exertion GI Denies abdominal pain, Denies change in bowel habits, Denies excessive flatus, Denies nausea and Denies vomiting Physical exam (Primary Care) Vital Signs: Last Vital Signs Pulse 67 05/11/25 16:11 BP 124/86 05/11/25 16:11 Pulse Ox 98 05/11/25 16:11 BMI result Body Mass Index 25.0 Tobacco/Smoking Status: Tobacco use Status Tobacco use date assessed 05/11/25 05/11/25 16:14 Patient Tobacco Use Status Never used Tobacco 05/11/25 16:14 e-Cigarette/Vaping Use Never Used 05/11/25 16:14 Thrive Assessment: Date of Thrive Assessment Date Thrive assessed 05/11/25 05/11/25 16:14 HENMT Head: Yes normal to inspection, Yes normocephalic and Yes atraumatic Ears: external ears normal Eyes General: appearance normal, both eyes and all related structures Eyelids: Yes eyelids normal Conjunctivae: conjunctivae normal Neck Neck: Yes normal visual inspection and Yes supple Resp Effort & Inspection: normal respiratory effort Auscultation: clear to auscultation bilaterally Cardio Jugular venous distension: no JVD Rate: regular rate Rhythm: regular rhythm Heart sounds: S1 normal heart sound present and S2 normal heart sound present GI Inspection: Yes normal to inspection Palpation (GI): Soft to palpation and nontender Auscultation: normal bowel sounds Skin General skin exam: no rashes or lesions noted Neuro General: no focal motor deficits Extrem General: Yes full ROM Psych Appearance: grossly normal Coding Level of Care Code Est Pt Level 3 (20246) Est Pt Prev Care 40-64y(92862) Diagnoses Physical exam Z00.00 Moderate persistent asthma with exacerbation J45.41 Asthma severity: moderate Asthma persistence: persistent Assessment & Plan Assessment & Plan (1) Physical exam: Code(s): Z00.00 - Encounter for general adult medical examination without abnormal findings Category: Medical (2) Asthma exacerbation: Code(s): J45.901 - Unspecified asthma with (acute) exacerbation Category: Medical Qualifiers: Asthma severity: moderate Asthma persistence: persistent Qualified Code(s): J45.41 - Moderate persistent asthma with (acute) exacerbation Plan Repeat physical exam and a year. Start long-acting inhaler. Medications: New budesonide-formoterol 80-4.5 mcg/actuation 1 inh inhalation BID 10.2 grams 3RF 30 days Refilled cholecalciferol (vitamin D3) 25 mcg PO DAILY 90 caps 1RF 90 days
[2025-05-11 16:11] VITALS: BP 124/86; PULSE 67; O2SAT 98; BMI 25.0
== END 2025-05-11 16:34 | disposition home or self-care (01) ==
LOC: HO.HMCH 16:03
PROVIDERS: PCP Internal Medicine; Visit Provider Internal Medicine
DX: Z00.00 Encounter for general adult medical examination without abnormal findings (principal); J45.41 Moderate persistent asthma with (acute) exacerbation

== ENCOUNTER 2025-05-20 14:53 | Outpatient (AMB) | payer BC, SELFPAY ==
--- NOTE | 2025-05-20 14:54 | A.OFFVIS_ITS ---
Vital Signs 05/20/25 14:58 Height 5 ft 4 in Weight 145 lb BMI 24.9 BP 133/65 Blood Pressure Location Rt brachial Position Sitting Pulse 72 Intake Visit Reasons: 6 month breast Intake Note: Patient here for 6mo follow up, breast exam. Patient c/o: no concerns. Denies breast lumps, tenderness, nipple discharge. BI MM: 12-02-2024 Rn Staffing Required: No [employer] Leader: [employer] Leader Present (Eli HART) Accompanied by: Self / Same As Patient Allergies apple Adverse Reaction (Severe, Verified 05/20/25 14:58) Hives oranges Allergy (Unknown, Uncoded 05/20/25 14:58) rash penicillin Allergy (Unknown, Uncoded 05/20/25 14:58) rash HPI Comments Details: 54-year-old female patient with a strong family history of breast cancer including her sister who from from breast cancer, a maternal aunt diagnosed with breast cancer in her 50s, and a maternal cousin diagnosed with breast cancer in her 40s. She was identified as being at high risk for breast cancer due to her family history with a Tyrer-Cuzick remaining lifetime risk of breast cancer calculated at 20.1%. She is 2 para 2, did not breast feed her children. She underwent a hysterectomy without oophorectomy at the age of 38. Her most recent breast MRI performed on 07/07/2024 performed at [facility] reveals no MR evidence of malignancy bilaterally (BI-RADS 2). Her most recent mammogram of 12/02/2024 revealed no mammographic evidence of malignancy (BI-RADS 1). She was due for a follow-up breast MRI in June 2025. She denies any new breast symptoms. [facility] Medical History Demyelinating disease Murmur Leukopenia Chronic fatigue Vertigo Scoliosis Mild persistent asthma Surgical History History of tubal ligation H/O: hysterectomy Family History Mother Diabetes Stroke Heart attack Father Heart attack Sister Breast cancer, Onset Age: 56 Sister Brain cancer Skin cancer Brother Prostate cancer Sister Primary cancer of bone marrow Social History Household Members: None Housing: House Are you a primary direct care provider to a significant other at home: Yes (sister) Do you presently have visiting nurse or other home services: No Alcohol intake: current Alcohol intake frequency: a few times a month Alcohol type: wine Patient Tobacco Use Status: Never used Tobacco e-Cigarette/Vaping Use: Never Used Second Hand Smoke Exposure: No service: No Current occupational status: employed 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 Current occupational exposures/hazards: No Cognitive needs: No Hearing needs: No Vision needs: Yes Female Reproductive History Menstrual Age of Menarche: 14 Review of Systems Const All systems reviewed & are unremarkable except as noted in HPI and below Resp Reports chest congestion and Reports cough Denies nipple discharge Skin/Breast Denies breast swelling, Denies breast skin changes, Denies breast pain, Denies breast mass and Denies nipple discharge Derrick/Lymph Denies lymphadenopathy Physical Exam Const General: cooperative and no acute distress Nutritional Appearance: well nourished Orientation/consciousness: patient oriented x3 Limitations: no limitations HEENT Head: Yes normocephalic and Yes atraumatic Ears: hearing grossly normal bilaterally Chest Other: Bilateral very dense breast tissue especially in the upper quadrants. Left breast: No skin change, no nipple retraction, no nipple discharge, no palpable mass, no enlarged lymph nodes. Right breast: No skin change, no nipple retraction, no nipple discharge, no palpable mass, no enlarged lymph nodes Resp Effort & Inspection: normal respiratory effort, no audible wheezes, no cough and no respiratory distress Cardio Jugular venous distension: no JVD GI Inspection: Yes normal to inspection Skin Other: Warm, dry, no rash Neuro General: patient oriented x3 Extrem General: Yes no clubbing, cyanosis or edema Assessment & Plan Assessment & Plan (1) At high risk for breast cancer: Code(s): Z91.89 - Other specified personal risk factors, not elsewhere classified Category: Medical (2) Family history of breast cancer: Code(s): Z80.3 - Family history of malignant neoplasm of breast Category: Medical Plan 54-year-old female patient determined to be at high risk for breast cancer due to family history presenting for routine breast examination. Examination today revealed no suspicious findings in either breast. Her most recent mammogram of 12/02/2024 revealed no mammographic evidence of malignancy (BI-RADS 1). Her most recent MRI of 07/07/2024 also revealed no MR specific evidence of malignancy (BI- RADS 2 bilaterally). She will be due for an MRI in June 2025. I recommended follow-up examination in approximately 6 months. She is welcome to call sooner for any new concerns. Orders: Orders MR breast BI wo/w con 07/08/25 Z80.3 - Family history of malignant neoplasm of breast, Z91.89 - Other specified personal risk factors, not elsewhere classified Coding Level of Care Code Est Pt Level 3 (59552) Complex EM visit Add On G2211 Diagnoses At high risk for breast cancer Z91.89 Family history of breast cancer Z80.3
[2025-05-20 14:58] VITALS: BP 133/65; PULSE 72; BMI 24.9
== END 2025-05-20 15:09 | disposition home or self-care (01) ==
PROVIDERS: PCP Internal Medicine; Visit Provider Surgery
DX: Z91.89 Other specified personal risk factors, not elsewhere classified (principal); Z80.3 Family history of malignant neoplasm of breast
CPT/HCPCS: 99213

== ENCOUNTER 2025-07-05 07:01 | Outpatient (REF) | payer BC, SELFPAY ==
[2025-07-05 07:09] LABS: MANUAL DIFF FLAG NO
[2025-07-05 07:26] LABS: Hematocrit 37.1 % (37.0-47.0); Hemoglobin 11.9 g/dl (12.0-16.0); Imm Gran Abs Auto 0.04 X10*3/uL (0.00-0.03); Imm Gran Pct Auto 0.7 % (0.0-0.4); Lymphocytes Absolute Auto 2.0 X10*3/uL (1.2-4.9); Mean Corpuscular HGB Conc 32.1 g/dl (31.0-35.0); Mean Corpuscular Hemoglobin 28.7 pg (27.0-33.0); Mean Corpuscular Volume 89.4 fL (80.0-98.0); NRBC Abs Auto 0.000 X10*3/uL (0.0-0.012); NRBC Pct Auto 0.0 /100WBC (0.0-0.2); Platelet Count 324 X10*3/uL (160-400); Red Blood Count 4.15 X10*6/uL (4.20-5.50); White Blood Count 5.7 X10*3/uL (4.8-10.8)
[2025-07-05 08:04] LABS: Alanine Aminotransferase 21 U/L (0-31); Albumin Level 4.5 g/dL (3.5-5.0); Alkaline Phosphatase 72 U/L (39-117); Anion Gap 9 (12-20); Aspartate Amino Transferase 24 U/L (5-31); Blood Urea Nitrogen 16 mg/dL (9-16); Calcium 9.9 mg/dL (8.4-10.2); Carbon Dioxide 29 mmol/L (22-29); Chloride 106 mmol/L (96-108); Cholesterol 210 mg/dL (<200); Estimated Glomerular Filt Rate > 60; HDL Cholesterol 89 mg/dL (>40); Iron 57 mcg/dL (30-160); Percent Iron Saturation 19 % (15-50); Potassium 4.1 mmol/L (3.3-5.1); Sodium 140 mmol/L (135-145); Total Iron Binding Capacity 296 mcg/dL (228-428); Total Protein 7.6 g/dL (6.5-8.0); Triglycerides 47 mg/dL (<150); Unsaturated Iron Binding 239 ug/dL
[2025-07-05 08:24] LABS: Ferritin 42 ng/mL (10-250); Thyroid Stimulating Hormone 3.91 uIU/mL (0.32-4.0); Vitamin B12 228 pg/mL (200-900)
[2025-07-05 08:42] LABS: Folate 12.7 ng/mL (> or = 4.0)
== END 2025-07-05 07:02 | disposition home or self-care (01) ==
LOC: HO.LAB 07:01
PROVIDERS: PCP Internal Medicine; Visit Provider Internal Medicine Medical Oncology
DX: D64.9 Anemia, unspecified (principal); E78.5 Hyperlipidemia, unspecified
CPT/HCPCS: 36415; 80053; 80061; 82306; 82607; 82728; 82746; 83540; 83615; 84443; 85025

== ENCOUNTER → 2025-07-06 12:43 | Outpatient (BNV) | payer BC, SELFPAY | PROVIDERS: PCP Internal Medicine; Visit Provider Internal Medicine | DX: Z80.3 Family history of malignant neoplasm of breast (principal) | CPT/HCPCS: 77049 ==

== ENCOUNTER 2025-07-06 12:46 | Outpatient (REF) | payer BC, SELFPAY ==
--- NOTE | ~2025-07-06 | MR_ITS ---
EXAMINATION: MR BREAST WITHOUT AND WITH CONTRAST, BILATERAL CLINICAL INFORMATION: High risk strong family history of breast cancer including maternal aunt and cousin. COMPARISON: Comparison is made with relevant prior imaging. TECHNIQUE: MR imaging of the breast was performed using T1, T2 and fat saturated techniques. Dynamic multiphase imaging was also performed after the administration of intravenous gadolinium contrast agent. Computer generated 3D reconstruction and enhancement kinetic analysis was ulitized by the radiologist in the interpretation of this examination. FINDINGS: Breast composition: Heterogeneous fibroglandular breast tissue Background parenchymal enhancement: Moderate LEFT BREAST: No suspicious enhancing masses or areas of non mass enhancement. No axillary or internal mammary adenopathy. RIGHT BREAST: Scattered areas of enhancement upper central slightly outer right breast series 1041 image 59/120 and upper outer breast series 1041 image 54/120 are stable from multiple priors dating back to 2017. No suspicious enhancing masses or areas of non mass enhancement. No axillary or internal mammary adenopathy. Limited views of the chest and abdomen are unremarkable. MR/MR breast BI wo/w con IMPRESSION: No MR specific evidence of malignancy. ASSESSMENT: LEFT BREAST: BI-RADS 1-Negative RIGHT BREAST: BI-RADS 2-Benign RECOMMENDATIONS: Yearly screening mammography Yearly Breast MRI screening surveillance. Electronically signed by: Kelly Murdock DO 07/09/2025 05:00 PM EDT
== END 2025-07-06 12:47 | disposition home or self-care (01) ==
LOC: HO.MRI 12:46
PROVIDERS: PCP Internal Medicine; Visit Provider Surgery
DX: Z12.39 Encounter for other screening for malignant neoplasm of breast (principal); Z91.89 Other specified personal risk factors, not elsewhere classified; Z80.3 Family history of malignant neoplasm of breast
CPT/HCPCS: 77049; A9585

== ENCOUNTER → 2025-07-22 16:00 | Outpatient (BNV) | payer OTHER, SELFPAY | PROVIDERS: PCP Internal Medicine; Referring Provider Internal Medicine; Visit Provider Internal Medicine Medical Oncology | DX: D72.819 Decreased white blood cell count, unspecified (principal); Z86.018 Personal history of other benign neoplasm; Z80.3 Family history of malignant neoplasm of breast | CPT/HCPCS: 99203 ==